=== PATIENT | male | born 1970 | race Caucasian/White ===

== ENCOUNTER 2019-09-02 06:42 | Emergency (ER) | payer BC, SELFPAY ==
[2019-09-02] MEDS ORDERED: LEVALBUTEROL 1.25 MG/3 ML NEB ONE (07:05)
--- NOTE | 2019-09-02 08:12 | ER ---
Nurse's Notes [facility] Name: Wyatt Barth Age: 48 yrs Sex: Male : 1970 Arrival Date: 09/02/2019 Time: 06:45 Bed 6 Private MD: Diagnosis: Acute bronchitis Presentation: 09/02 06:58 Presenting complaint: Patient states: he has had a cough x 2 weeks has used OTC bb medications but they are not helping, last night he had a temp of 100.6 and now he is having pain with inspirations and gets fatigued easier. Transition of care: patient was not received from another setting of care. Onset of symptoms was August 14, 2019. Risk Assessment: Do you want to hurt yourself or someone else? Patient reports no desire to harm self or others. Initial Sepsis Screen: Does the patient meet any 2 criteria? No. Patient's initial sepsis screen is negative. Does the patient have a suspected source of infection? No. Patient's initial sepsis screen is negative. Care prior to arrival: None. 06:58 Method Of Arrival: Ambulatory bb 06:58 Acuity: SELVIN 3 bb Historical: - Allergies: 07:01 PENICILLINS; bb - Home Meds: 07:01 None [Active]; bb - PMHx: 07:01 GERD; bb - PSHx: 07:01 Cholecystectomy; Tonsillectomy; abdominal surgery as a child; neck surgery; bb - Immunization history:: Adult Immunizations up to date, Flu vaccine is not up to date. - Social history:: Smoking status: Patient/guardian denies using tobacco, Patient uses alcohol, occasionally. Patient/guardian denies using street drugs. - Ebola Screening: : No symptoms or risks identified at this time. Screenin:10 Abuse screen: Denies threats or abuse. Denies injuries from another. Nutritional sg screening: No deficits noted. Tuberculosis screening: No symptoms or risk factors identified. Never had TB. Fall Risk None identified. Assessment: 07:10 General: Appears in no apparent distress. well groomed, well developed, well nourished, sg Behavior is calm, cooperative, appropriate for age, quiet. Pain: Denies pain. Neuro: Level of Consciousness is awake, alert, obeys commands, Oriented to person, place, time, Speech is normal, Facial symmetry appears normal. Cardiovascular: Heart tones S1 S2 present Capillary refill is brisk in bilateral fingers Patient's skin is warm and dry. Respiratory: Airway is patent Respiratory effort is even, unlabored, Respiratory pattern is regular, symmetrical, Breath sounds are coarse. Respiratory: Reports cough that is non-productive, dry, persistent. GI: Abdomen is round non-distended. : No signs and/or symptoms were reported regarding the genitourinary system. EENT: No signs and/or symptoms were reported regarding the EENT system. Derm: Skin is pink, warm \T\ dry. Musculoskeletal: Circulation, motion, and sensation intact. Range of motion: intact in all extremities. 07:18 Reassessment: Patient appears in no apparent distress at this time. Patient and/or sg family updated on plan of care and expected duration. Pain level reassessed. Vital Signs: 07:01 BP 145 / 99; Pulse 96; Resp 16 S; Temp 98.4(O); Pulse Ox 94% on R/A; Weight 91.63 kg bb (R); Height 6 ft. 1 in. (185.42 cm) (R); Pain 0/10; 08:00 BP 136 / 82; Pulse 87; Resp 17; Pulse Ox 98% on R/A; Pain 0/10; sg 07:01 Body Mass Index 26.65 (91.63 kg, 185.42 cm) ED Course: 06:45 Patient arrived in ED. ag3 06:50 Mario Castorena PA is PHCP. jmm 06:50 Arden Lew MD is Attending Physician. [facility] 07:00 Triage completed. bb 07:01 Arm band placed on Patient placed in an exam room, on a stretcher, on pulse oximetry. bb 07:10 Patient has correct armband on for positive identification. Bed in low position. Call sg light in reach. Side rails up X2. Pulse ox on. NIBP on. Warm blanket given. Head of bed elevated. 07:18 Ghassan Huerta, AAKASH is Primary Nurse. sg 07:40 Chest Pa And Lat (2 Views) XRAY In Process Unspecified. EDMS 08:15 No provider procedures requiring assistance completed. Patient did not have IV access sg during this emergency room visit. Administered Medications: 07:11 Drug: Xopenex (3) 1.25 mg Route: Inhalation; sg 07:25 Follow up: Response: No adverse reaction sg Outcome: 08:12 Discharge ordered by MD. lama 08:15 Discharged to home ambulatory. sg 08:15 Condition: good 08:15 Discharge instructions given to patient, Instructed on discharge instructions, follow up and referral plans. medication usage, safety practices, Demonstrated understanding of instructions, follow-up care, medications, Prescriptions given X 3. 08:18 Patient left the ED. sg Signatures: Dispatcher [employer] Ghassan Yu RN RN sg Mario Castorena PA PA jmm Ballard, Brenda, RN RN bb Toya Reyna3 Corrections: (The following items were deleted from the chart) 08:21 08:00 BP 136 / 82; Pulse 17bpm; Resp 17bpm; Pulse Ox 98% RA; Pain 0/10; sg sg
--- NOTE | 2019-09-02 08:12 | EDPHYS ---
Physician Documentation [facility] Name: Wyatt Barth Age: 48 yrs Sex: Male : 1970 Arrival Date: 09/02/2019 Time: 06:45 Bed 6 Private MD: ED Physician Arden Lew HPI: 09/02 07:05 This 48 yrs old Male presents to ER via Ambulatory with complaints of Cough. [facility] 07:05 The patient or guardian reports cough. Onset: The symptoms/episode began/occurred jmm gradually, 2 week(s) ago. Modifying factors: The symptoms are alleviated by nothing, the symptoms are aggravated by nothing. Associated signs and symptoms: Pertinent positives: fever, Pertinent negatives: sore throat. This is a 48 year old male with a history of GERD that presents to the ED with complaints of productive cough, wheezing beginning 2 weeks ago. Patient states developing a fever with tmax of 100.6 last night. Denies sore throat. . Historical: - Allergies: 07:01 PENICILLINS; bb - Home Meds: 07:01 None [Active]; bb - PMHx: 07:01 GERD; bb - PSHx: 07:01 Cholecystectomy; Tonsillectomy; abdominal surgery as a child; neck surgery; bb - Immunization history:: Adult Immunizations up to date, Flu vaccine is not up to date. - Social history:: Smoking status: Patient/guardian denies using tobacco, Patient uses alcohol, occasionally. Patient/guardian denies using street drugs. - Ebola Screening: : No symptoms or risks identified at this time. ROS: 07:05 Cardiovascular: Negative for chest pain, palpitations, and edema. jmm 07:05 Constitutional: Positive for body aches, fever. 07:05 ENT: Negative for sore throat. 07:05 Respiratory: Positive for cough, wheezing. 07:05 All other systems are negative. Exam: 07:05 Constitutional: This is a well developed, well nourished patient who is awake, alert, jmm and in no acute distress. Head/Face: atraumatic. Eyes: EOMI, no conjunctival erythema appreciated ENT: Moist Mucus Membranes Neck: Trachea midline, Supple Chest/axilla: Normal chest wall appearance and motion. 07:05 Cardiovascular: Rate: normal, Rhythm: regular, Pulses: no pulse deficits are appreciated. 07:05 Respiratory: the patient does not display signs of respiratory distress, Respirations: normal, Breath sounds: wheezing: that is mild, is heard in the right posterior upper lobe and right posterior middle lobe. 07:05 Abdomen/GI: Inspection: abdomen appears normal, Bowel sounds: normal, Palpation: abdomen is soft and non-tender, in all quadrants. 07:05 Musculoskeletal/extremity: ROM: intact in all extremities. 07:05 Skin: Appearance: Color: normal in color. 07:05 Neuro: Orientation: is normal, Mentation: is normal, Memory: is normal. 07:05 Psych: Behavior/mood is pleasant, cooperative. Vital Signs: 07:01 BP 145 / 99; Pulse 96; Resp 16 S; Temp 98.4(O); Pulse Ox 94% on R/A; Weight 91.63 kg bb (R); Height 6 ft. 1 in. (185.42 cm) (R); Pain 0/10; 08:00 BP 136 / 82; Pulse 87; Resp 17; Pulse Ox 98% on R/A; Pain 0/10; sg 07:01 Body Mass Index 26.65 (91.63 kg, 185.42 cm) bb MDM: 06:55 Patient medically screened. tavon 08:10 Data reviewed: vital signs, nurses notes. Counseling: I had a detailed discussion with daina the patient and/or guardian regarding: the historical points, exam findings, and any diagnostic results supporting the discharge/admit diagnosis, radiology results, the need for outpatient follow up, to return to the emergency department if symptoms worsen or persist or if there are any questions or concerns that arise at home. ED course: Patient is alert and non toxic in appearance in the ED. Decreased wheezing on reexamination. Patient is advised to follow up with PCP and otherwise given strict return precautions. . 09/02 07:01 Order name: Chest Pa And Lat (2 Views) XRAY daina Administered Medications: 07:11 Drug: Xopenex (3) 1.25 mg Route: Inhalation; sg 07:25 Follow up: Response: No adverse reaction sg Disposition: 08:59 Co-signature as Attending Physician, Arden Lew MD I agree with the assessment and tavon plan of care. Disposition: 09/02/19 08:12 Discharged to Home. Impression: Acute bronchitis. - Condition is Stable. - Discharge Instructions: Acute Bronchitis, Adult. - Prescriptions for Prednisone 20 mg Oral Tablet - take 3 tablet by ORAL route once daily for 5 days; 15 tablet. Zithromax Z- Jac 250 mg Oral Tablet - take 1 tablet by ORAL route as directed for 5 days Day 1 - take two (2) tablets one time. Day 2, 3, 4 , 5 take one (1) tablet once daily.; 6 tablet. Albuterol Sulfate 90 mcg/actuation - inhale 1-2 puff by INHALATION route every 4-6 hours; 1 Inhaler. - Medication Reconciliation Form, Thank You Letter, Antibiotic Education, Prescription Opioid Use, Work release form form. - Follow up: Private Physician; When: 2 - 3 days; Reason: Recheck today's complaints, Continuance of care, Re-evaluation by your physician. Signatures: Dispatcher [employer] EDGhassan Venegas, RN RN Arden Toledo MD MD cha Mickail, Joel, PA PA jmm Ballard, Brenda, RN RN bb Corrections: (The following items were deleted from the chart) 08:18 08:12 09/02/2019 08:12 Discharged to Home. Impression: Acute bronchitis. Condition is sg Stable. Forms are Medication Reconciliation Form, Thank You Letter, Antibiotic Education, Prescription Opioid Use. Follow up: Private Physician; When: 2 - 3 days; Reason: Recheck today's complaints, Continuance of care, Re-evaluation by your physician. daina
[2019-09-02 08:31] VITALS: BP 145/99; TEMP 98.4; O2SAT 94
--- NOTE | 2019-09-02 09:46 | RAD REPORT ---
EXAM DESCRIPTION: RAD - Chest Pa And Lat (2 Views) - 09/02/2019 7:42 am CLINICAL HISTORY: fever, cough Chest pain. COMPARISON: Chest Single View dated 07/11/2016; CHEST SINGLE VIEW dated 09/26/2013 FINDINGS: Ill-defined opacities are present in the left lung base suspicious for developing pneumoni a. The lungs are otherwise clear. The heart is normal in size. No displaced fractures. IMPRESSION: Developing left lung base pneumonia.
== END 2019-09-02 08:18 | disposition home or self-care (01) ==
LOC: ER 06:42
DX: J20.9 Acute bronchitis, unspecified (principal); K21.9 Gastro-esophageal reflux disease without esophagitis; Z88.0 Allergy status to penicillin
CPT/HCPCS: 71046; 99284

== ENCOUNTER 2020-05-10 16:05 | Emergency (ER) | payer SELFPAY ==
[2020-05-10 17:05] LABS: Basophils % 0.8 % (0-1.3); Hematocrit 41.4 % (39.6-49.0); Lymphocytes % 19.4 % (15.3-44.8); MPV 7.7 fL (7.6-11.3); Protime INR 0.93; RBC Red Blood Cell Count 4.48 M/uL (4.33-5.43)
[2020-05-10 17:31] LABS: ALT/SGPT 146 U/L (12-78); AST/SGOT 127 U/L (15-37); Albumin 3.9 g/dL (3.4-5.0); Alkaline Phosphatase 49 U/L (45-117); BUN Blood Urea Nitrogen 14 mg/dL (7-18); Bicarbonate 26 mmol/L (21-32); Bilirubin Direct 0.2 mg/dL (0-0.2); Bilirubin Total 0.5 mg/dL (0.2-1.0); Glucose Level 97 mg/dL (74-106); NT PRO-BNP 8 pg/mL (<125); Potassium 3.6 mmol/L (3.5-5.1); Protein, Total 7.6 g/dL (6.4-8.2); Sodium Level 140 mmol/L (136-145); Troponin (Emerg Dept Use Only) < 0.02 ng/mL (0.0-0.045)
[2020-05-10] MEDS ORDERED: NA CHLORIDE 0.9% 1,000 ML ONE (17:38)
--- NOTE | 2020-05-10 17:54 | RAD REPORT ---
EXAM DESCRIPTION: RAD - Chest Single View - 05/10/2020 5:44 pm CLINICAL HISTORY: PALPITATIONS COMPARISON: Two view chest August 2019 TECHNIQUE: AP portable chest image was obtained 05/10/2020 5:44 pm . FINDINGS: Lung volumes are low. This elevates the right hemidiaphragm relative to the left. No acute lung parenchymal process seen. No failure or volume overload identifiable. Heart and vasculature are normal. No measurable pleural effusion and no pneumothorax. No acute bony abnormality seen. No acute aortic findings suspected. IMPRESSION: No acute cardiopulmonary process. No suspicious change from comparison.
[2020-05-10] MEDS ORDERED: ONDANSETRON 4 MG/2 ML VIAL ONE (18:34)
--- NOTE | 2020-05-10 18:40 | ER ---
Nurse's Notes [facility] Name: Wyatt Barth Age: 49 yrs Sex: Male : 1970 Arrival Date: 05/10/2020 Time: 16:09 Bed 3 Private MD: Diagnosis: Elevated blood-pressure reading, without diagnosis of hypertension;Tachycardia, unspecified Presentation: 05/10 16:17 Chief complaint: Patient states: High BP. high HR, and lightheaded for 1 day. HR ll1 130-150is today. Coronavirus screen: Client denies travel out of the [place] in the last 14 days. cough unrelated to allergies, Client presents with at least one sign or symptom that may indicate coronavirus-19. Standard/surgical mask placed on the client. Ebola Screen: Patient denies travel to an Ebola-affected area in the 21 days before illness onset. Initial Sepsis Screen: Does the patient meet any 2 criteria? HR > 90 bpm. Risk Assessment: Do you want to hurt yourself or someone else? Patient reports no desire to harm self or others. Onset of symptoms was May 10, 2020. 16:17 Method Of Arrival: Wheelchair ll1 16:17 Acuity: SELVIN 2 ll1 16:30 Initial Sepsis Screen: Does the patient have a suspected source of infection?. iw Triage Assessment: 18:00 General: Appears in no apparent distress. Behavior is calm. iw Historical: - Allergies: 16:16 PENICILLINS; ll1 - PMHx: 16:16 GERD; ll1 - PSHx: 16:16 Cholecystectomy; Tonsillectomy; abdominal surgery as a child; neck surgery; ll1 - Immunization history:: Flu vaccine is not up to date. - Social history:: Smoking status: Patient denies any tobacco usage or history of. Patient uses alcohol, on a daily basis. only on a social basis. Patient/guardian denies using street drugs. Screenin:57 Abuse screen: Denies threats or abuse. Denies injuries from another. Nutritional iw screening: No deficits noted. Tuberculosis screening: No symptoms or risk factors identified. Fall Risk None identified. Assessment: 17:00 General: Appears in no apparent distress. Behavior is calm, cooperative. Pain: Denies iw pain. Neuro: Level of Consciousness is awake, alert, obeys commands, Oriented to person, place, time, situation, Moves all extremities. Full function. Cardiovascular: Patient's skin is warm and dry. Respiratory: Airway is patent Respiratory effort is even, unlabored. GI: No signs and/or symptoms were reported involving the gastrointestinal system. Derm: Skin is intact, is healthy with good turgor. Musculoskeletal: Range of motion: intact in all extremities. 17:57 Reassessment: Patient appears in no apparent distress at this time. Patient and/or iw family updated on plan of care and expected duration. Pain level reassessed. Patient is alert, oriented x 3, equal unlabored respirations, skin warm/dry/pink. 18:30 Reassessment: Patient appears in no apparent distress at this time. Patient and/or vc family updated on plan of care and expected duration. Pain level reassessed. Patient is alert, oriented x 3, equal unlabored respirations, skin warm/dry/pink. Patient states feeling better. Patient states symptoms have improved. 19:09 Reassessment: Patient appears in no apparent distress at this time. Patient is alert, rr5 oriented x 3, equal unlabored respirations, skin warm/dry/pink. discharge instruction given and explained without complaints made. Vital Signs: 16:17 BP 145 / 127; Pulse 126; Resp 18; Temp 98.8; Pulse Ox 95% ; Pain 0/10; ll1 17:19 BP 138 / 104; Pulse 110; Resp 18 S; Pulse Ox 98% on R/A; iw 17:57 BP 156 / 93; Pulse 112; Resp 16; Pulse Ox 97% on R/A; iw 19:08 BP 152 / 102; Pulse 99; Resp 17; Pulse Ox 99% ; rr5 ED Course: 16:09 Patient arrived in ED. mr 16:16 Arm band placed on Patient placed in an exam room, on a stretcher. ll1 16:18 Triage completed. ll1 16:21 Melanie Londono FNP-C is [facility]. kb 16:21 Arden Lew MD is Attending Physician. kb 16:30 Inserted saline lock: 20 gauge in right antecubital area, using aseptic technique. vc Blood collected. 16:49 Jessica Benítez, RN is Primary Nurse. vc 17:44 XRAY Chest (1 view) In Process Unspecified. EDMS 19:00 Patient has correct armband on for positive identification. Bed in low position. Call rr5 light in reach. 19:00 school lunch monitor on. Pulse ox on. NIBP on. rr5 19:11 No provider procedures requiring assistance completed. IV discontinued, intact, rr5 bleeding controlled, No redness/swelling at site. Pressure dressing applied. Administered Medications: 17:34 Drug: NS 0.9% 1000 ml Route: IV; Rate: 1000 ml; Site: right forearm; iw 19:12 Follow up: Response: No adverse reaction; IV Status: Completed infusion; IV Intake: rr5 1000ml 18:28 Drug: Zofran (Ondansetron) 4 mg Route: IVP; Site: right antecubital; vc 19:10 Follow up: Response: No adverse reaction rr5 Intake: 19:12 IV: 1000ml; Total: 1000ml. rr5 Outcome: 18:40 Discharge ordered by . kb 19:11 Discharged to home ambulatory. rr5 19:11 Condition: stable 19:11 Discharge instructions given to patient, Instructed on discharge instructions, follow up and referral plans. medication usage, Demonstrated understanding of instructions, follow-up care, medications, Prescriptions given X 1. 19:12 Patient left the ED. rr5 Signatures: Dispatcher [employer] EDMS Melanie Londono, TICK ERADICATOR-C TICK ERADICATOR-Ckb Manda Evans Irene, RN Rodolfo Cm RN RN rr5 Jessica Benítez RN RN vc Lewis, Lynsay, RN RN ll1
--- NOTE | 2020-05-10 18:40 | EDPHYS ---
Physician Documentation [facility] Name: Wyatt Barth Age: 49 yrs Sex: Male : 1970 Arrival Date: 05/10/2020 Time: 16:09 Bed 3 Private MD: ED Physician Arden Lew HPI: 05/10 18:18 This 49 yrs old Male presents to ER via Wheelchair with complaints of High kb Blood Pressure, Dizziness. 18:18 The patient has elevated blood pressure and discovered this at a friend's home. Onset: kb The symptoms/episode began/occurred today. Associated signs and symptoms: Pertinent positives: lightheadedness, Pertinent negatives: chest pain, dizziness, dyspnea, headache, nausea, visual changes, vomiting, weakness. Severity of symptoms: At its worst the blood pressure was 180 mm Hg, in the emergency department the blood pressure is improved, 156 mm Hg. The patient has not experienced similar symptoms in the past. The patient has not recently seen a physician. Pt reports his heart rate goes up sometimes, usually after eating. States it normally comes down, but today it has lasted for a few hours. States he checked his BP and it was high as well so he came in. Reports slight lightheadedness. Denies chest pain or shortness of breath. Historical: - Allergies: 16:16 PENICILLINS; ll1 - PMHx: 16:16 GERD; ll1 - PSHx: 16:16 Cholecystectomy; Tonsillectomy; abdominal surgery as a child; neck surgery; ll1 - Immunization history:: Flu vaccine is not up to date. - Social history:: Smoking status: Patient denies any tobacco usage or history of. Patient uses alcohol, on a daily basis. only on a social basis. Patient/guardian denies using street drugs. ROS: 18:21 Constitutional: Negative for fever, chills, and weight loss, Eyes: Negative for injury, kb pain, redness, and discharge, Respiratory: Negative for shortness of breath, cough, wheezing, and pleuritic chest pain, Abdomen/GI: Negative for abdominal pain, nausea, vomiting, diarrhea, and constipation, Back: Negative for injury and pain, MS/Extremity: Negative for injury and deformity, Skin: Negative for injury, rash, and discoloration. 18:21 Cardiovascular: Positive for elevated heart rate and BP. 18:21 Neuro: Positive for lightheadedness. Exam: 18:21 Constitutional: This is a well developed, well nourished patient who is awake, alert, kb and in no acute distress. Head/Face: Normocephalic, atraumatic. Chest/axilla: Normal chest wall appearance and motion. Nontender with no deformity. No lesions are appreciated. Cardiovascular: Tachycardia, normal rhythm with a normal S1 and S2. No gallops, murmurs, or rubs. Normal PMI, no JVD. No pulse deficits. Respiratory: Lungs have equal breath sounds bilaterally, clear to auscultation and percussion. No rales, rhonchi or wheezes noted. No increased work of breathing, no retractions or nasal flaring. Abdomen/GI: Soft, non-tender, with normal bowel sounds. No distension or tympany. No guarding or rebound. No evidence of tenderness throughout. Skin: Warm, dry with normal turgor. Normal color with no rashes, no lesions, and no evidence of cellulitis. MS/ Extremity: Pulses equal, no cyanosis. Neurovascular intact. Full, normal range of motion. Neuro: Awake and alert, GCS 15, oriented to person, place, time, and situation. Cranial nerves II-XII grossly intact. Motor strength 5/5 in all extremities. Sensory grossly intact. Cerebellar exam normal. Normal gait. 18:21 ECG was reviewed by the Attending Physician. Vital Signs: 16:17 BP 145 / 127; Pulse 126; Resp 18; Temp 98.8; Pulse Ox 95% ; Pain 0/10; ll1 17:19 BP 138 / 104; Pulse 110; Resp 18 S; Pulse Ox 98% on R/A; iw 17:57 BP 156 / 93; Pulse 112; Resp 16; Pulse Ox 97% on R/A; iw 19:08 BP 152 / 102; Pulse 99; Resp 17; Pulse Ox 99% ; rr5 MDM: 16:22 Patient medically screened. kb 18:23 Data reviewed: vital signs, nurses notes. Data interpreted: Pulse oximetry: on room air kb is 97 %. Interpretation: normal. 18:28 Counseling: I had a detailed discussion with the patient and/or guardian regarding: the kb historical points, exam findings, and any diagnostic results supporting the discharge/admit diagnosis, lab results, radiology results, the need for outpatient follow up, a family practitioner, to return to the emergency department if symptoms worsen or persist or if there are any questions or concerns that arise at home. ED course: Educated to keep BP log and follow up with PCP for management. 05/10 16:26 Order name: Basic Metabolic Panel; Complete Time: 17:32 kb 05/10 16:26 Order name: CBC with Diff; Complete Time: 17:10 kb 05/10 16:26 Order name: LFT's; Complete Time: 17:32 kb 05/10 16:26 Order name: Magnesium; Complete Time: 17:32 kb 05/10 16:26 Order name: NT PRO-BNP; Complete Time: 17:32 kb 05/10 16:26 Order name: PT-INR; Complete Time: 17:10 kb 05/10 16:26 Order name: Troponin (emerg Dept Use Only); Complete Time: 17:32 kb 05/10 16:26 Order name: XRAY Chest (1 view); Complete Time: 17:55 kb 05/10 16:26 Order name: EKG; Complete Time: 16:27 kb 05/10 16:26 Order name: Cardiac monitoring; Complete Time: 17:23 kb 05/10 16:26 Order name: EKG - Nurse/Tech; Complete Time: 17:23 kb 05/10 18:02 Order name: D-Dimer; Complete Time: 18:28 kb 05/10 16:26 Order name: IV Saline Lock; Complete Time: 16:49 kb 05/10 16:26 Order name: Labs collected and sent; Complete Time: 16:49 kb 05/10 16:26 Order name: O2 Per Protocol; Complete Time: 16:50 kb 05/10 16:26 Order name: O2 Sat Monitoring; Complete Time: 16:50 kb EC:21 Rate is 114 beats/min. Rhythm is regular. QRS Carr is Normal. VA interval is normal at kb 162 msec. QRS interval is normal at 80 msec. QT interval is normal at 312 msec. Administered Medications: 17:34 Drug: NS 0.9% 1000 ml Route: IV; Rate: 1000 ml; Site: right forearm; iw 19:12 Follow up: Response: No adverse reaction; IV Status: Completed infusion; IV Intake: rr5 1000ml 18:28 Drug: Zofran (Ondansetron) 4 mg Route: IVP; Site: right antecubital; vc 19:10 Follow up: Response: No adverse reaction rr5 Disposition: 05/11 08:03 Co-signature as Attending Physician, Arden Lew MD I agree with the assessment and tvaon plan of care. Disposition: 05/10/20 18:40 Discharged to Home. Impression: Elevated blood-pressure reading, without diagnosis of hypertension, Tachycardia, unspecified. - Condition is Stable. - Discharge Instructions: Hypertension, [id number], How to Take Your Blood Pressure, [id number], DASH Eating Plan. - Prescriptions for Zofran 4 mg Oral Tablet - take 1 tablet by ORAL route every 12 hours As needed; 20 tablet. - Medication Reconciliation Form, Thank You Letter, Antibiotic Education, Prescription Opioid Use form. - Follow up: Emergency Department; When: As needed; Reason: Worsening of condition. Follow up: Private Physician; When: 2 - 3 days; Reason: Recheck today's complaints, Continuance of care, Re-evaluation by your physician. Signatures: Dispatcher [employer] Melanie Nicholson, VIPUL-Keiko MATTHEW-Arden Bonner MD MD cha Williams, Irene, RN RN iw Rodolfo Hi RN RN rr5 Jessica Benítez RN RN vc Lewis, Lynsay RN RN ll1 Corrections: (The following items were deleted from the chart) 05/10 19:12 18:40 05/10/2020 18:40 Discharged to Home. Impression: Elevated blood-pressure reading, rr5 without diagnosis of hypertension; Tachycardia, unspecified. Condition is Stable. Discharge Instructions: Hypertension, [id number], How to Take Your Blood Pressure, [id number], DASH Eating Plan. Prescriptions for Zofran 4 mg Oral Tablet - take 1 tablet by ORAL route every 12 hours As needed; 20 tablet. and Forms are Medication Reconciliation Form, Thank You Letter, Antibiotic Education, Prescription Opioid Use. Follow up: Emergency Department; When: As needed; Reason: Worsening of condition. Follow up: Private Physician; When: 2 - 3 days; Reason: Recheck today's complaints, Continuance of care, Re-evaluation by your physician. kb
[2020-05-10 19:17] VITALS: TEMP 98.8
[2020-05-10 19:21] VITALS: BP 152/102; O2SAT 99
== END 2020-05-10 19:12 | disposition home or self-care (01) ==
LOC: ER 16:05
DX: R03.0 Elevated blood-pressure reading, without diagnosis of hypertension (principal); R00.0 Tachycardia, unspecified
CPT/HCPCS: 36415; 71045; 80048; 80076; 83735; 83880; 84484; 85025; 85379; 85610; 93005; 96361; 96374; 99284; J2405; J7030

== ENCOUNTER 2022-01-18 10:04 | Emergency (ER) | payer SELFPAY ==
--- OUTSIDE RECORDS SUMMARY | 2022-01-18 10:10 | XMS REPORT | Continuity of Care Document ---
:1970 Author Organization [facility] t Address [address] [place] [address] Care Team Providers Name Role Phone Enrique BROWN Primary Care Physician ENRIQUE Attending Clinician Unavailable Doctor Unassigned, Name Attending Clinician Unavailable Aleksandr Parrish Attending Clinician Enrique BROWN Attending Clinician Aleksandr HUMMEL Attending Clinician Unavailable ERICKA Attending Clinician Unavailable Tiffanie PAC, S Attending Clinician MOE, S Attending Clinician Unavailable Moni MOORE, G Attending Clinician Maximilian Alba DO Attending Clinician Singer PAUL Attending Clinician Ethel BROWN Attending Clinician ETHEL Attending Clinician Unavailable Rupa MOE Admitting Clinician Unavailable Ethel BROWN Admitting Clinician ETHEL Admitting Clinician Unavailable Payers Payer Name Policy Type Policy Number Effective Date Expiration Date [facility] [id number] 2017 PPO 00:00:00 Problems Condition Condition Condition Status Onset Resolution Last Treating Co mments Source Name Details Category Date Date Treatment Clinician Date Essential Essential Disease Active 2019-0 Uni vers hypertensi hypertensi 8- it y of on on 00:00: [place] [address] [facility] Palpitatio Palpitatio Disease Active 2020-0 U nivers n n 8- ity of 00:00: [place] [address] [facility] Alcohol Alcohol Disease Active Univers abuse abuse 8-04 ity of 00:00: [place] 00 [facility] Near Near Disease Active Univers syncope syncope 8- ity of 00:00: [place] [address] [facility] Hyperlipid Hyperlipid Disease Active U nivers emia, emia, 8-10 ity [place] unspec[place] hyperlipid hyperlipid Br anch emia type emia type Elevated Elevated Disease Active Unive rs BP BP 8-10 ity of 00:00: [place] [facility] Allergies, Adverse Reactions, Alerts Allergy Allergy Status Severity Reaction(s) Onset Inactive Treating Comm ents Source Name Type Date Date Clinician PENICILL DRUG Active Unknown-Cmnt [facility] IN [facility] 01-02 ity of 00:00: [place] [facility] NO KNOWN Drug Active Univers ALLERGIE Class ity of S [facility] Branch Social History Social Habit Start Date Stop Date Quantity Comments Source Exposure to Not sure [facility] SARS-CoV-2 [place] [facility] (event) Branch Alcohol intake 2021-12-12 2021-12-12 Current drinker Unive rsity of 00:00:00 00:00:00 of alcohol [place] [facility] (finding) Branch History SDOH 2020-05-14 2020-05-14 5 University o f Alcohol Frequency 00:00:00 00:00:00 [place] [facility] History SDOH 2020-05-14 2020-05-14 99 University o f Alcohol Std 00:00:00 00:00:00 [place] [facility] Drinks Branch History SDPR 2020-05-14 2020-05-14 99 University o f Alcohol Binge 00:00:00 00:00:00 [place] [facility] Alcohol Comment 2020-05-14 2020-05-14 1/2 gallon every Uni versity of 00:00:00 00:00:00 2-3 days of rum [place] [facility] Tobacco use and 2020-05-13 2020-05-13 Never used Universit y of exposure 00:00:00 [facility] Sex [birth year] At [birth year] Universit y of 00:00:00 00:00:00 [place] [facility] Smoking Status Start Date Stop Date Source Never smoker [facility] Medications Ordered Filled Start Stop Current Ordering Indication Dosage Frequency Signature Comments Components Source Medication Medication Date Date Medication? Clinician (SIG) Name Name sildenafiL 2021-0 Yes [id number] TAKE ONE Univers 50 mg 4-04 TABLET BY ity of tablet 00:00: MOUTH [place] 00 EVERY 24 Medical HOURS Branch NEEDED FOR ERECTILE DYSFUNCTIO N (ONE HOUR BEFORE ACTIVITY) BUSPIRONE 5 2021-0 Yes [id number] TAKE ONE Univers mg tablet 3-31 TABLET BY ity o f 00:00: MOUTH [place] 00 TWICE A Medical DAY Branch NEEDED BUSPIRONE 5 2021-0 Yes [id number] TAKE ONE Univers mg tablet 3-31 TABLET BY ity o f 00:00: MOUTH [place] 00 TWICE A Medical DAY Branch NEEDED sildenafiL 2021-0 Yes [id number] TAKE ONE Univers 50 mg 3-24 TABLET BY ity of tablet 00:00: MOUTH [place] 00 EVERY 24 Medical HOURS Branch NEEDED FOR ERECTILE DYSFUNCTIO N (ONE HOUR BEFORE ACTIVITY) sildenafiL 2021-0 Yes [id number] TAKE ONE Univers 50 mg 3-24 TABLET BY ity of tablet 00:00: MOUTH [place] 00 EVERY 24 Medical HOURS Branch NEEDED FOR ERECTILE DYSFUNCTIO N (ONE HOUR BEFORE ACTIVITY) sildenafiL 2021-0 2021- No [id number] TAKE ONE Univers 50 mg 3-24 04-02 TABLET BY ity of tablet 00:00: 00:00 MOUTH [place] 00 :00 EVERY 24 Medical HOURS Branch NEEDED FOR ERECTILE DYSFUNCTIO N (ONE HOUR BEFORE ACTIVITY) carvediloL 2021-0 Yes [id number] 12.5mg Take 1 Univers 12.5 mg 3-21 tablet by ity of tablet 00:00: mouth 2 00 (two) Medical times Branch daily with meals. carvediloL 2021-0 Yes [id number] 12.5mg Take 1 Univers 12.5 mg 3-21 tablet by ity of tablet 00:00: mouth 2 [place] 00 (two) Medical times Branch daily with meals. carvediloL 2021-0 Yes [id number] 12.5mg Take 1 Univers 12.5 mg 3-21 tablet by ity of tablet 00:00: mouth 2 [place] 00 (two) Medical times Branch daily with meals. carvediloL 2021-0 Yes [id number] 12.5mg Take 1 Univers 12.5 mg 3-21 tablet by ity of tablet 00:00: mouth 2 00 (two) Medical times Branch daily with meals. carvediloL Yes [id number] 12.5mg Take 1 Univers 12.5 mg 3-21 tablet by ity of tablet 00:00: mouth 2 00 (two) Medical times Branch daily with meals. sildenafiL Yes [id number] TAKE 1 [facility] 50 mg 3-16 TABLET BY ity of tablet 00:00: MOUTH [place] 00 EVERY 24 Medical HOURS Branch NEEDED FOR ERECTILE DYSFUNCTIO N ( ONE HOUR BEFORE SEXUAL ACTIVITY) sildenafiL Yes [id number] TAKE 1 Univers 50 mg 3-16 TABLET BY ity of tablet 00:00: MOUTH 00 EVERY 24 Medical HOURS Branch NEEDED FOR ERECTILE DYSFUNCTIO N ( ONE HOUR BEFORE SEXUAL ACTIVITY) sildenafiL Yes [id number] TAKE 1 Univers 50 mg 3-16 TABLET BY ity of tablet 00:00: MOUTH 00 EVERY 24 Medical HOURS Branch NEEDED FOR ERECTILE DYSFUNCTIO N ( ONE HOUR BEFORE SEXUAL ACTIVITY) sildenafiL 2021- No [id number] TAKE 1 Univers 50 mg 3-16 03-24 TABLET BY ity of tablet 00:00: 00:00 MOUTH [place] 00 :00 EVERY 24 Medical HOURS Branch NEEDED FOR ERECTILE DYSFUNCTIO N ( ONE HOUR BEFORE SEXUAL ACTIVITY) sildenafiL Yes [id number] TAKE 1 Univers 50 mg 3-07 TABLET BY ity of tablet 00:00: MOUTH [place] 00 EVERY 24 Medical HOURS Branch NEEDED FOR ERECTILE DYSFUNCTIO N ( ONE HOUR BEFORE SEXUAL ACTIVITY) sildenafiL Yes [id number] TAKE 1 Univers 50 mg 3-07 TABLET BY ity of tablet 00:00: MOUTH [place] 00 EVERY 24 Medical HOURS Branch NEEDED FOR ERECTILE DYSFUNCTIO N ( ONE HOUR BEFORE SEXUAL ACTIVITY) sildenafiL 2021- No [id number] TAKE 1 Univers 50 mg 3-07 03-16 TABLET BY ity of tablet 00:00: 00:00 MOUTH [place] 00 :00 EVERY 24 Medical HOURS Branch NEEDED FOR ERECTILE DYSFUNCTIO N ( ONE HOUR BEFORE SEXUAL ACTIVITY) lisinopriL Yes [id number] 20mg Take 1 U nivers 20 mg 3-04 tablet by ity of tablet 00:00: mouth [place] 00 daily. Medical Branch busPIRone 5 2021-0 Yes [id number] 5mg Take 1 Univers mg tablet 3-04 tablet by ity o f 00:00: mouth (two) Medical times Branch daily as needed (anxiety). lisinopriL 2021-0 Yes [id number] 20mg Take 1 U nivers 20 mg 3-04 tablet by ity of tablet 00:00: mouth [place] 00 daily. Medical Branch busPIRone 5 2021-0 Yes [id number] 5mg Take 1 Univers mg tablet 3-04 tablet by ity o f 00:00: mouth (two) Medical times Branch daily as needed (anxiety). lisinopriL 2021-0 Yes [id number] 20mg Take 1 U nivers 20 mg 3-04 tablet by ity of tablet 00:00: mouth [place] 00 daily. Medical Branch busPIRone 5 2021-0 Yes [id number] 5mg Take 1 Univers mg tablet 3-04 tablet by ity o f 00:00: mouth (two) Medical times Branch daily as needed (anxiety). lisinopriL 2021-0 Yes [id number] 20mg Take 1 U nivers 20 mg 3-04 tablet by ity of tablet 00:00: mouth 00 daily. Medical Branch busPIRone 5 2021-0 Yes [id number] 5mg Take 1 Univers mg tablet 3-04 tablet by ity o f 00:00: mouth (two) Medical times Branch daily as needed (anxiety). lisinopriL 2021-0 Yes [id number] 20mg Take 1 U nivers 20 mg 3-04 tablet by ity of tablet 00:00: mouth [place] 00 daily. Medical Branch busPIRone 5 2021-0 Yes [id number] 5mg Take 1 Univers mg tablet 3-04 tablet by ity o f 00:00: mouth (two) Medical times Branch daily as needed (anxiety). lisinopriL 2-0 Yes [id number] 20mg Take 1 U nivers 20 mg 3-04 tablet by ity of tablet 00:00: mouth [place] 00 daily. Medical Branch busPIRone 5 2021-0 Yes [id number] 5mg Take 1 Univers mg tablet 3-04 tablet by ity o f 00:00: mouth 2 [place] 00 (two) Medical times Branch daily as needed (anxiety). lisinopriL Yes [id number] 20mg Take 1 U nivers 20 mg 3-04 tablet by ity of tablet 00:00: mouth [place] 00 daily. Medical Branch busPIRone 5 Yes [id number] 5mg Take 1 Univers mg tablet 3-04 tablet by ity o f 00:00: mouth 2 [place] 00 (two) Medical times Branch daily as needed (anxiety). lisinopriL Yes [id number] 20mg Take 1 U nivers 20 mg 3-04 tablet by ity of tablet 00:00: mouth [place] 00 daily. Medical Branch lisinopriL Yes [id number] 20mg Take 1 U nivers 20 mg 3-04 tablet by ity of tablet 00:00: mouth [place] 00 daily. Medical Branch busPIRone 5 2021- No [id number] 5mg Take 1 Univers mg tablet 3-04 -31 tablet by ity of 00:00: 00:00 mouth 2 [place] 00 :00 (two) Medical times Branch daily as needed (anxiety). sildenafiL Yes [id number] TAKE 1 Univers 50 mg 2-23 TABLET BY ity of tablet 00:00: MOUTH [place] 00 EVERY 24 Medical HOURS Branch NEEDED FOR ERECTILE DYSFUNCTIO N ( ONE HOUR BEFORE SEXUAL ACTIVITY) sildenafiL 2- No [id number] TAKE 1 Univers 50 mg 2-23 03-06 TABLET BY ity of tablet 00:00: 00:00 MOUTH [place] 00 :00 EVERY 24 Medical HOURS Branch NEEDED FOR ERECTILE DYSFUNCTIO N ( ONE HOUR BEFORE SEXUAL ACTIVITY) sildenafiL Yes [id number] TAKE 1 Univers 50 mg 2-14 TABLET BY ity of tablet 00:00: MOUTH [place] 00 EVERY 24 Medical HOURS Branch NEEDED FOR ERECTILE DYSFUNCTIO N ( ONE HOUR BEFORE SEXUAL ACTIVITY) sildenafiL Yes [id number] TAKE 1 Univers 50 mg 2-14 TABLET BY ity of tablet 00:00: MOUTH [place] 00 EVERY 24 Medical HOURS Branch NEEDED FOR ERECTILE DYSFUNCTIO N ( ONE HOUR BEFORE SEXUAL ACTIVITY) sildenafiL Yes [id number] TAKE 1 Univers 50 mg 2-14 TABLET BY ity of tablet 00:00: MOUTH [place] 00 EVERY 24 Medical HOURS Branch NEEDED FOR ERECTILE DYSFUNCTIO N ( ONE HOUR BEFORE SEXUAL ACTIVITY) sildenafiL 0 2021- No [id number] TAKE 1 Univers 50 mg 2-14 - TABLET BY ity of tablet 00:00: 00:00 MOUTH [place] 00 :00 EVERY 24 Medical HOURS Branch NEEDED FOR ERECTILE DYSFUNCTIO N ( ONE HOUR BEFORE SEXUAL ACTIVITY) CARVEDILOL 2021-0 Yes [id number] TAKE ONE Univers 12.5 mg 2-11 TABLET BY ity of tablet 00:00: MOUTH [place] 00 TWICE A Medical DAY WITH A Branch MEAL CARVEDILOL 0 Yes [id number] TAKE ONE Univers 12.5 mg 2-11 TABLET BY ity of tablet 00:00: MOUTH [place] 00 TWICE A Medical DAY WITH A Branch MEAL CARVEDILOL 0 Yes [id number] TAKE ONE Univers 12.5 mg 2-11 TABLET BY ity of tablet 00:00: MOUTH [place] 00 TWICE A Medical DAY WITH A Branch MEAL CARVEDILOL 2021-0 Yes [id number] TAKE ONE Univers 12.5 mg 2-11 TABLET BY ity of tablet 00:00: MOUTH [place] 00 TWICE A Medical DAY WITH A Branch MEAL CARVEDILOL 2021-0 Yes [id number] TAKE ONE Univers 12.5 mg 2-11 TABLET BY ity of tablet 00:00: MOUTH [place] 00 TWICE A Medical DAY WITH A Branch MEAL CARVEDILOL 2021-0 Yes [id number] TAKE ONE Univers 12.5 mg 2-11 TABLET BY ity of tablet 00:00: MOUTH [place] 00 TWICE A Medical DAY WITH A Branch MEAL CARVEDILOL 2021-0 Yes [id number] TAKE ONE Univers 12.5 mg 2-11 TABLET BY ity of tablet 00:00: MOUTH [place] 00 TWICE A Medical DAY WITH A Branch MEAL CARVEDILOL 2021-0 Yes [id number] TAKE ONE Univers 12.5 mg 2-11 TABLET BY ity of tablet 00:00: MOUTH [place] 00 TWICE A Medical DAY WITH A Branch MEAL CARVEDILOL 2021-0 Yes [id number] TAKE ONE Univers 12.5 mg 2-11 TABLET BY ity of tablet 00:00: MOUTH [place] 00 TWICE A Medical DAY WITH A Branch MEAL CARVEDILOL 2021-0 2- No [id number] TAKE ONE Univers 12.5 mg 2-11 -21 TABLET BY ity of tablet 00:00: 00:00 MOUTH [place] 00 :00 TWICE A Medical DAY WITH A Branch MEAL CARVEDILOL 2021- No [id number] TAKE ONE Univers 12.5 mg 2-11 -21 TABLET BY ity of tablet 00:00: 00:00 MOUTH [place] 00 :00 TWICE A Medical DAY WITH A Branch MEAL sildenafiL Yes [id number] TAKE 1 Univers 50 mg 2-01 TABLET BY ity of tablet 00:00: MOUTH [place] 00 EVERY 24 Medical HOURS Branch NEEDED FOR ERECTILE DYSFUNCTIO N ( ONE HOUR BEFORE SEXUAL ACTIVITY) sildenafiL Yes [id number] TAKE 1 Univers 50 mg 2-01 TABLET BY ity of tablet 00:00: MOUTH [place] 00 EVERY 24 Medical HOURS Branch NEEDED FOR ERECTILE DYSFUNCTIO N ( ONE HOUR BEFORE SEXUAL ACTIVITY) sildenafiL Yes [id number] TAKE ONE Univers 50 mg 2-01 TABLET BY ity of tablet 00:00: MOUTH [place] 00 EVERY 24 Medical HOURS FOR Branch ERECTILE DYSFUNCTIO N (ONE HOUR BEFORE SEXUAL ACTIVITY) sildenafiL Yes [id number] TAKE 1 Univers 50 mg 2-01 TABLET BY ity of tablet 00:00: MOUTH [place] 00 EVERY 24 Medical HOURS Branch NEEDED FOR ERECTILE DYSFUNCTIO N ( ONE HOUR BEFORE SEXUAL ACTIVITY) sildenafiL Yes [id number] TAKE ONE Univers 50 mg 2-01 TABLET BY ity of tablet 00:00: MOUTH [place] 00 EVERY 24 Medical HOURS FOR Branch ERECTILE DYSFUNCTIO N (ONE HOUR BEFORE SEXUAL ACTIVITY) sildenafiL Yes [id number] TAKE ONE Univers 50 mg 2-01 TABLET BY ity of tablet 00:00: MOUTH [place] 00 EVERY 24 Medical HOURS FOR Branch ERECTILE DYSFUNCTIO N (ONE HOUR BEFORE SEXUAL ACTIVITY) sildenafiL Yes [id number] TAKE ONE Univers 50 mg 2-01 TABLET BY ity of tablet 00:00: MOUTH [place] 00 EVERY 24 Medical HOURS FOR Branch ERECTILE DYSFUNCTIO N (ONE HOUR BEFORE SEXUAL ACTIVITY) sildenafiL Yes [id number] TAKE ONE Univers 50 mg 2-01 TABLET BY ity of tablet 00:00: MOUTH [place] 00 EVERY 24 Medical HOURS FOR Branch ERECTILE DYSFUNCTIO N (ONE HOUR BEFORE SEXUAL ACTIVITY) sildenafiL Yes [id number] TAKE ONE Univers 50 mg 2-01 TABLET BY ity of tablet 00:00: MOUTH [place] 00 EVERY 24 Medical HOURS FOR Branch ERECTILE DYSFUNCTIO N (ONE HOUR BEFORE SEXUAL ACTIVITY) sildenafiL 2021- No [id number] TAKE 1 Univers 50 mg 2-01 02-12 TABLET BY ity of tablet 00:00: 00:00 MOUTH [place] 00 :00 EVERY 24 Medical HOURS Branch NEEDED FOR ERECTILE DYSFUNCTIO N ( ONE HOUR BEFORE SEXUAL ACTIVITY) sildenafiL Yes [id number] TAKE 1 Univers 50 mg 1-19 TABLET BY ity of tablet 00:00: MOUTH [place] 00 EVERY 24 Medical HOURS Branch NEEDED FOR ERECTILE DYSFUNCTIO N ( ONE HOUR BEFORE SEXUAL ACTIVITY) CARVEDILOL Yes [id number] TAKE ONE Univers 12.5 mg 1-19 TABLET BY ity of tablet 00:00: MOUTH [place] 00 TWICE A Medical DAY WITH Branch MEALS CARVEDILOL Yes [id number] TAKE ONE Univers 12.5 mg 1-19 TABLET BY ity of tablet 00:00: MOUTH [place] 00 TWICE A Medical DAY WITH Branch MEALS CARVEDILOL Yes [id number] TAKE ONE Univers 12.5 mg 1-19 TABLET BY ity of tablet 00:00: MOUTH [place] 00 TWICE A Medical DAY WITH Branch MEALS CARVEDILOL 2021- No [id number] TAKE ONE Univers 12.5 mg 1-19 02-11 TABLET BY ity of tablet 00:00: 00:00 MOUTH [place] 00 :00 TWICE A Medical DAY WITH Branch MEALS sildenafiL 2021- No [id number] TAKE 1 Univers 50 mg 1-19 -28 TABLET BY ity of tablet 00:00: 00:00 MOUTH [place] 00 :00 EVERY 24 Medical HOURS Branch NEEDED FOR ERECTILE DYSFUNCTIO N ( ONE HOUR BEFORE SEXUAL ACTIVITY) lisinopriL Yes [id number] 10mg Take 1 U nivers 10 mg 1-07 tablet by ity of tablet 00:00: mouth [place] 00 daily. Medical Branch sildenafiL Yes [id number] TAKE ONE Univers 50 mg 1-07 TABLET BY ity of tablet 00:00: MOUTH [place] 00 EVERY 24 Medical HOURS Branch NEEDED FOR ERECTILE DYSFUNCTIO N ONE HOUR BEFORE SEXUAL ACTIVITY. lisinopriL 2022-0 Yes [id number] 10mg Take 1 U nivers 10 mg 1-07 tablet by ity of tablet 00:00: mouth [place] 00 daily. Medical Branch lisinopriL 2021-0 Yes [id number] 10mg Take 1 U nivers 10 mg 1-07 tablet by ity of tablet 00:00: mouth [place] 00 daily. Medical Branch lisinopriL 2021-0 Yes [id number] 10mg Take 1 U nivers 10 mg 1-07 tablet by ity of tablet 00:00: mouth [place] 00 daily. Medical Branch lisinopriL 2021-0 Yes [id number] 10mg Take 1 U nivers 10 mg 1-07 tablet by ity of tablet 00:00: mouth [place] 00 daily. Medical Branch lisinopriL 2021-0 Yes [id number] 10mg Take 1 U nivers 10 mg 1-07 tablet by ity of tablet 00:00: mouth [place] 00 daily. Medical Branch lisinopriL 2021-0 Yes [id number] 10mg Take 1 U nivers 10 mg 1-07 tablet by ity of tablet 00:00: mouth [place] 00 daily. Medical Branch lisinopriL 2021-0 Yes [id number] 10mg Take 1 U nivers 10 mg 1-07 tablet by ity of tablet 00:00: mouth [place] 00 daily. Medical Branch lisinopriL 2021-0 Yes [id number] 10mg Take 1 U nivers 10 mg 1-07 tablet by ity of tablet 00:00: mouth [place] 00 daily. Medical Branch lisinopriL 2021-0 Yes [id number] 10mg Take 1 U nivers 10 mg 1-07 tablet by ity of tablet 00:00: mouth [place] 00 daily. Medical Branch lisinopriL 2021-0 Yes [id number] 10mg Take 1 U nivers 10 mg 1-07 tablet by ity of tablet 00:00: mouth [place] 00 daily. Medical Branch lisinopriL 2021-0 Yes [id number] 10mg Take 1 U nivers 10 mg 1-07 tablet by ity of tablet 00:00: mouth [place] 00 daily. Medical Branch lisinopriL 2021-0 Yes [id number] 10mg Take 1 U nivers 10 mg 1-07 tablet by ity of tablet 00:00: mouth [place] 00 daily. Medical Branch lisinopriL 2021-0 Yes [id number] 10mg Take 1 U nivers 10 mg 1-07 tablet by ity of tablet 00:00: mouth [place] 00 daily. Medical Branch lisinopriL Yes [id number] 10mg Take 1 U nivers 10 mg 1-07 tablet by ity of tablet 00:00: mouth [place] 00 daily. Medical Branch lisinopriL Yes [id number] 10mg Take 1 U nivers 10 mg 1-07 tablet by ity of tablet 00:00: mouth [place] 00 daily. Medical Branch lisinopriL Yes [id number] 10mg Take 1 U nivers 10 mg 1-07 tablet by ity of tablet 00:00: mouth [place] 00 daily. Medical Branch lisinopriL Yes [id number] 10mg Take 1 U nivers 10 mg 1-07 tablet by ity of tablet 00:00: mouth [place] 00 daily. Medical Branch sildenafiL 2021- No [id number] TAKE ONE Univers 50 mg 1-07 -19 TABLET BY ity of tablet 00:00: 00:00 MOUTH [place] 00 :00 EVERY 24 Medical HOURS Branch NEEDED FOR ERECTILE DYSFUNCTIO N ONE HOUR BEFORE SEXUAL ACTIVITY. SILDENAFIL 2020-10 Yes [id number] TAKE ONE [facility] 50 mg 2-27 TABLET BY ity of tablet 00:00: MOUTH [place] 00 EVERY 24 Medical HOURS Branch NEEDED FOR ERECTILE DYSFUNCTIO N ONE HOUR BEFORE SEXUAL ACTIVITY SILDENAFIL 2020-10- No [id number] TAKE ONE Univers 50 mg 2-27 01-07 TABLET BY ity of tablet 00:00: 00:00 MOUTH [place] 00 :00 EVERY 24 Medical HOURS Branch NEEDED FOR ERECTILE DYSFUNCTIO N ONE HOUR BEFORE SEXUAL ACTIVITY sildenafiL 2020-10 Yes [id number] 50mg Take 1 Univers 50 mg 2-13 tablet by ity of tablet 00:00: mouth [place] 00 every 24 Medical (twenty-fo Branch ur) hours as needed for Other (ed). TAKE ONE TABLET BY MOUTH DAILY NEEDED FOR 1 HOUR BEFORE SEXUAL ACTIVITY sildenafiL 2020-10- No [id number] 50mg Take 1 Univers 50 mg 2-13 12-27 tablet by ity of tablet 00:00: 00:00 mouth [place] 00 :00 every 24 Medical (twenty-fo Branch ur) hours as needed for Other (ed). TAKE ONE TABLET BY MOUTH DAILY NEEDED FOR 1 HOUR BEFORE SEXUAL ACTIVITY SILDENAFIL 2020-10 Yes [id number] TAKE ONE [facility] 50 mg 2-03 TABLET BY ity of tablet 00:00: MOUTH [place] 00 DAILY Medical NEEDED FOR Branch 1 HOUR BEFORE SEXUAL ACTIVITY CARVEDILOL 2020-10 Yes [id number] TAKE ONE Univers 12.5 mg 2-03 TABLET BY ity of tablet 00:00: MOUTH [place] 00 TWICE A Medical DAY WITH Branch MEALS SILDENAFIL 2020-10 Yes [id number] TAKE ONE [facility] 50 mg 2-03 TABLET BY ity of tablet 00:00: MOUTH [place] 00 DAILY Medical NEEDED FOR Branch 1 HOUR BEFORE SEXUAL ACTIVITY CARVEDILOL 2020-10 Yes [id number] TAKE ONE Univers 12.5 mg 2-03 TABLET BY ity of tablet 00:00: MOUTH [place] 00 TWICE A Medical DAY WITH Branch MEALS CARVEDILOL 2020-10 Yes [id number] TAKE ONE Univers 12.5 mg 2-03 TABLET BY ity of tablet 00:00: MOUTH [place] 00 TWICE A Medical DAY WITH Branch MEALS CARVEDILOL 2020-10 Yes [id number] TAKE ONE Univers 12.5 mg 2-03 TABLET BY ity of tablet 00:00: MOUTH [place] 00 TWICE A Medical DAY WITH Branch MEALS CARVEDILOL 2020-10 Yes [id number] TAKE ONE [facility] 12.5 mg 2-03 TABLET BY ity of tablet 00:00: MOUTH [place] 00 TWICE A Medical DAY WITH Branch MEALS CARVEDILOL 2020-10- No [id number] TAKE ONE Univers 12.5 mg 2-03 01-19 TABLET BY ity of tablet 00:00: 00:00 MOUTH [place] 00 :00 TWICE A Medical DAY WITH Branch MEALS SILDENAFIL 2020-10- No [id number] TAKE ONE [facility] 50 mg 2-03 12-13 TABLET BY ity of tablet 00:00: 00:00 MOUTH [place] 00 :00 DAILY Medical NEEDED FOR Branch 1 HOUR BEFORE SEXUAL ACTIVITY SILDENAFIL 2020-10 Yes [id number] TAKE ONE [facility] 50 mg 1-24 TABLET BY ity of tablet 00:00: MOUTH ONCE [place] 00 DAILY Medical NEEDED 1 Branch HOUR PRIOR TO SEXUAL ACTIVITY SILDENAFIL 2020-10- No [id number] TAKE ONE [facility] 50 mg 1-24 12-03 TABLET BY ity of tablet 00:00: 00:00 MOUTH [place]CE [place] 00 :[place] DAILY Medical NEEDED 1 Branch HOUR PRIOR TO SEXUAL ACTIVITY SILDENAFIL 2020-10 Yes [id number] TAKE ONE [facility] 50 mg 1-10 TABLET BY ity of tablet 00:00: MOUTH [place] 00 DAILY Medical NEEDED 1 Branch HOUR PRIOR TO SEXUAL ACTIVITY SILDENAFIL 2020-10- No [id number] TAKE ONE [facility] 50 mg 1-10 11-24 TABLET BY ity of tablet 00:00: 00:00 MOUTH [place] 00 :00 DAILY Medical NEEDED 1 Branch HOUR PRIOR TO SEXUAL ACTIVITY cloNIDine 2020-10 Yes [id number] .1mg Take 1 [facility] 0.1 mg 1-09 tablet by ity of tablet 00:00: mouth 3 00 (three) Medical times Branch daily as needed for Other (elevated blood pressure or signs of alcohol withdrawal present). cloNIDine 2020-10 Yes [id number] .1mg Take 1 [facility] 0.1 mg 1-09 tablet by ity of tablet 00:00: mouth 3 (three) Medical times Branch daily as needed for Other (elevated blood pressure or signs of alcohol withdrawal present). cloNIDine 2020-10 Yes [id number] .1mg Take 1 [facility] 0.1 mg 1-09 tablet by ity of tablet 00:00: mouth 3 (three) Medical times Branch daily as needed for Other (elevated blood pressure or signs of alcohol withdrawal present). cloNIDine 2020-10 Yes [id number] .1mg Take 1 [facility] 0.1 mg 1-09 tablet by ity of tablet 00:00: mouth 3 (three) Medical times Branch daily as needed for Other (elevated blood pressure or signs of alcohol withdrawal present). cloNIDine 2020-10 Yes [id number] .1mg Take 1 [facility] 0.1 mg 1-09 tablet by ity of tablet 00:00: mouth 3 (three) Medical times Branch daily as needed for Other (elevated blood pressure or signs of alcohol withdrawal present). cloNIDine 2020-10 Yes [id number] .1mg Take 1 [facility] 0.1 mg 1-09 tablet by ity of tablet 00:00: mouth 3 (three) Medical times Branch daily as needed for Other (elevated blood pressure or signs of alcohol withdrawal present). cloNIDine 2020-10 Yes [id number] .1mg Take 1 [facility] 0.1 mg 1-09 tablet by ity of tablet 00:00: mouth 3 (three) Medical times Branch daily as needed for Other (elevated blood pressure or signs of alcohol withdrawal present). cloNIDine 2020-10 Yes [id number] .1mg Take 1 [facility] 0.1 mg 1-09 tablet by ity of tablet 00:00: mouth 3 [place] (three) Medical times Branch daily as needed for Other (elevated blood pressure or signs of alcohol withdrawal present). cloNIDine 2020-10 Yes [id number] .1mg Take 1 [facility] 0.1 mg 1-09 tablet by ity of tablet 00:00: mouth 3 (three) Medical times Branch daily as needed for Other (elevated blood pressure or signs of alcohol withdrawal present). cloNIDine 2020-10 Yes [id number] .1mg Take 1 [facility] 0.1 mg 1-09 tablet by ity of tablet 00:00: mouth 3 (three) Medical times Branch daily as needed for Other (elevated blood pressure or signs of alcohol withdrawal present). cloNIDine 2020-10 Yes [id number] .1mg Take 1 [facility] 0.1 mg 1-09 tablet by ity of tablet 00:00: mouth 3 (three) Medical times Branch daily as needed for Other (elevated blood pressure or signs of alcohol withdrawal present). cloNIDine 2020-10 Yes [id number] .1mg Take 1 [facility] 0.1 mg 1-09 tablet by ity of tablet 00:00: mouth 3 (three) Medical times Branch daily as needed for Other (elevated blood pressure or signs of alcohol withdrawal present). cloNIDine 2020-10 Yes [id number] .1mg Take 1 [facility] 0.1 mg 1-09 tablet by ity of tablet 00:00: mouth 3 (three) Medical times Branch daily as needed for Other (elevated blood pressure or signs of alcohol withdrawal present). cloNIDine 2020-10 Yes [id number] .1mg Take 1 [facility] 0.1 mg 1-09 tablet by ity of tablet 00:00: mouth 3 (three) Medical times Branch daily as needed for Other (elevated blood pressure or signs of alcohol withdrawal present). cloNIDine 2020-10 Yes [id number] .1mg Take 1 [facility] 0.1 mg 1-09 tablet by ity of tablet 00:00: mouth 3 [place] 00 (three) Medical times Branch daily as needed for Other (elevated blood pressure or signs of alcohol withdrawal present). cloNIDine 2020-10 Yes [id number] .1mg Take 1 [facility] 0.1 mg 1-09 tablet by [facility] tablet 00:00: mouth 3 [place] 00 (three) Medical times Branch daily as needed for Other (elevated blood pressure or signs of alcohol withdrawal present). cloNIDine 2020-10 Yes [id number] .1mg Take 1 [facility] 0.1 mg 1-09 tablet by [facility] tablet 00:00: mouth 3 [place] 00 (three) Medical times Branch daily as needed for Other (elevated blood pressure or signs of alcohol withdrawal present). SILDENAFIL 2020-10 Yes [id number] TAKE ONE [facility] 50 mg 1-01 TABLET BY [facility] tablet 00:00: MOUTH [place] 00 DAILY Medical NEEDED 1 Branch HOUR PRIOR TO SEXUAL ACTIVITY CARVEDILOL 2020-10 Yes [id number] TAKE ONE [facility] 12.5 mg 1-01 TABLET BY [facility] tablet 00:00: MOUTH [place] 00 TWICE A Medical DAY WITH Branch MEALS SILDENAFIL 2020-10 Yes [id number] TAKE ONE [facility] 50 mg 1-01 TABLET BY [facility] tablet 00:00: MOUTH [place] 00 DAILY Medical NEEDED 1 Branch HOUR PRIOR TO SEXUAL ACTIVITY CARVEDILOL 2020-10 Yes [id number] TAKE ONE [facility] 12.5 mg 1-01 TABLET BY [facility] tablet 00:00: MOUTH [place] 00 TWICE A Medical DAY WITH Branch MEALS SILDENAFIL 2020-10 Yes [id number] TAKE ONE [facility] 50 mg 1-01 TABLET BY [facility] tablet 00:00: MOUTH [place] 00 DAILY Medical NEEDED 1 Branch HOUR PRIOR TO SEXUAL ACTIVITY CARVEDILOL 2020-10 Yes [id number] TAKE ONE [facility] 12.5 mg 1-01 TABLET BY [facility] tablet 00:00: MOUTH [place] 00 TWICE A Medical DAY WITH Branch MEALS SILDENAFIL 2020-10 Yes [id number] TAKE ONE [facility] 50 mg 1-01 TABLET BY [facility] tablet 00:00: MOUTH [place] 00 DAILY Medical NEEDED 1 Branch HOUR PRIOR TO SEXUAL ACTIVITY CARVEDILOL 2020-10 Yes [id number] TAKE ONE [facility] 12.5 mg 1-01 TABLET BY [facility] tablet 00:00: MOUTH [place] 00 TWICE A Medical DAY WITH Branch MEALS CARVEDILOL 2020-10 Yes [id number] TAKE ONE [facility] 12.5 mg 1-01 TABLET BY [facility] tablet 00:00: MOUTH [place] 00 TWICE A Medical DAY WITH Branch MEALS CARVEDILOL 2020-10 Yes [id number] TAKE ONE [facility] 12.5 mg 1-01 TABLET BY [facility] tablet 00:00: MOUTH [place] 00 TWICE A Medical DAY WITH Branch MEALS CARVEDILOL 2020-10- No [id number] TAKE ONE [facility] 12.5 mg 1-01 12-03 TABLET BY [facility] tablet 00:00: 00:00 MOUTH [place] 00 :00 TWICE A Medical DAY WITH Branch MEALS SILDENAFIL 2020-10- No [id number] TAKE ONE [facility] 50 mg 1-01 11-10 TABLET BY [facility] tablet 00:00: 00:00 MOUTH [place] 00 :00 DAILY Medical NEEDED 1 Branch HOUR PRIOR TO SEXUAL ACTIVITY SILDENAFIL 2020-10 Yes [id number] TAKE ONE [facility] 50 mg 0-19 TABLET BY [facility] tablet 00:00: MOUTH [place] 00 DAILY Medical NEEDED (1 Branch HOUR PRIOR TO SEXUAL ACITIVITY) SILDENAFIL 2020-10 Yes [id number] TAKE ONE [facility] 50 mg 0-19 TABLET BY [facility] tablet 00:00: MOUTH [place] 00 DAILY Medical NEEDED (1 Branch HOUR PRIOR TO SEXUAL ACITIVITY) SILDENAFIL 2020-10- No [id number] TAKE ONE [facility] 50 mg 0-19 11-01 TABLET BY [facility] tablet 00:00: 00:00 MOUTH [place] 00 :00 DAILY Medical NEEDED (1 Branch HOUR PRIOR TO SEXUAL ACITIVITY) CARVEDILOL Yes [id number] TAKE ONE [facility] 12.5 mg 9-13 TABLET BY [facility] tablet 00:00: MOUTH [place] 00 TWICE A Medical DAY WITH Branch MEALS CARVEDILOL Yes [id number] TAKE ONE [facility] 12.5 mg 9-13 TABLET BY [facility] tablet 00:00: MOUTH [place] 00 TWICE A Medical DAY WITH Branch MEALS CARVEDILOL Yes [id number] TAKE ONE [facility] 12.5 mg 9-13 TABLET BY [facility] tablet 00:00: MOUTH [place] 00 TWICE A Medical DAY WITH Branch MEALS CARVEDILOL Yes [id number] TAKE ONE [facility] 12.5 mg 9-13 TABLET BY [facility] tablet 00:00: MOUTH [place] 00 TWICE A Medical DAY WITH Branch MEALS CARVEDILOL 2020- No [id number] TAKE ONE [facility] 12.5 mg 9-13 11- TABLET BY [facility] tablet 00:00: 00:00 MOUTH [place] 00 :00 TWICE A Medical DAY WITH Branch MEALS SILDENAFIL 2020-0 Yes [id number] TAKE ONE [facility] 50 mg 8-30 TABLET BY [facility] tablet 00:00: MOUTH [place] 00 DAILY Medical NEEDED( 1 Branch HOUR PRIOR TO SEXUAL ACTIVITY) SILDENAFIL 2020-0 Yes [id number] TAKE ONE [facility] 50 mg 8-30 TABLET BY [facility] tablet 00:00: MOUTH [place] 00 DAILY Medical NEEDED( 1 Branch HOUR PRIOR TO SEXUAL ACTIVITY) SILDENAFIL 0 Yes [id number] TAKE ONE [facility] 50 mg 8-30 TABLET BY [facility] tablet 00:00: MOUTH [place] 00 DAILY Medical NEEDED( 1 Branch HOUR PRIOR TO SEXUAL ACTIVITY) SILDENAFIL 0 Yes [id number] TAKE ONE [facility] 50 mg 8-30 TABLET BY [facility] tablet 00:00: MOUTH [place] 00 DAILY Medical NEEDED( 1 Branch HOUR PRIOR TO SEXUAL ACTIVITY) SILDENAFIL 202- No [id number] TAKE ONE [facility] 50 mg 8-30 10-19 TABLET BY [facility] tablet 00:00: 00:00 MOUTH [place] 00 :00 DAILY Medical NEEDED( 1 Branch HOUR PRIOR TO SEXUAL ACTIVITY) azithromyci 2020-0 Yes [id number] 250mg Take 1 [facility] n 250 mg 8-16 tablet by [facility] tablet 00:00: mouth [place] 00 daily. Medical Take 500 Branch mg day 1, then 250 mg days 2 to 5. azithromyci 2020-0 Yes [id number] 250mg Take 1 [facility] n 250 mg 8-16 tablet by [facility] tablet 00:00: mouth [place] 00 daily. Medical Take 500 Branch mg day 1, then 250 mg days 2 to 5. azithromyci 2020-0 Yes [id number] 250mg Take 1 [facility] n 250 mg 8-16 tablet by [facility] tablet 00:00: mouth [place] 00 daily. Medical Take 500 Branch mg day 1, then 250 mg days 2 to 5. azithromyci 2020-0 Yes [id number] 250mg Take 1 [facility] n 250 mg 8-16 tablet by [facility] tablet 00:00: mouth [place] 00 daily. Medical Take 500 Branch mg day 1, then 250 mg days 2 to 5. azithromyci 2020-0 Yes [id number] 250mg Take 1 [facility] n 250 mg 8-16 tablet by [facility] tablet 00:00: mouth [place] 00 daily. Medical Take 500 Branch mg day 1, then 250 mg days 2 to 5. azithromyci 2021-0 Yes [id number] 250mg Take 1 [facility] n 250 mg 8-16 tablet by [facility] tablet 00:00: mouth [place] 00 daily. Medical Take 500 Branch mg day 1, then 250 mg days 2 to 5. azithromyci 1-0 Yes [id number] 250mg Take 1 [facility] n 250 mg 8-16 tablet by [facility] tablet 00:00: mouth [place] 00 daily. Medical Take 500 Branch mg day 1, then 250 mg days 2 to 5. azithromyci 1-0 Yes [id number] 250mg Take 1 [facility] n 250 mg 8-16 tablet by [facility] tablet 00:00: mouth [place] 00 daily. Medical Take 500 Branch mg day 1, then 250 mg days 2 to 5. azithromyci 1-0 Yes [id number] 250mg Take 1 [facility] n 250 mg 8-16 tablet by [facility] tablet 00:00: mouth [place] 00 daily. Medical Take 500 Branch mg day 1, then 250 mg days 2 to 5. azithromyci 1-0 Yes [id number] 250mg Take 1 [facility] n 250 mg 8-16 tablet by [facility] tablet 00:00: mouth [place] 00 daily. Medical Take 500 Branch mg day 1, then 250 mg days 2 to 5. azithromyci 1-0 Yes [id number] 250mg Take 1 [facility] n 250 mg 8-16 tablet by [facility] tablet 00:00: mouth [place] 00 daily. Medical Take 500 Branch mg day 1, then 250 mg days 2 to 5. azithromyci 1-0 Yes [id number] 250mg Take 1 [facility] n 250 mg 8-16 tablet by [facility] tablet 00:00: mouth [place] 00 daily. Medical Take 500 Branch mg day 1, then 250 mg days 2 to 5. azithromyci 2021-0 Yes [id number] 250mg Take 1 [facility] n 250 mg 8-16 tablet by [facility] tablet 00:00: mouth [place] 00 daily. Medical Take 500 Branch mg day 1, then 250 mg days 2 to 5. azithromyci 2021-0 Yes [id number] 250mg Take 1 [facility] n 250 mg 8-16 tablet by [facility] tablet 00:00: mouth [place] 00 daily. Medical Take 500 Branch mg day 1, then 250 mg days 2 to 5. azithromyci 2021-0 Yes [id number] 250mg Take 1 [facility] n 250 mg 8-16 tablet by [facility] tablet 00:00: mouth [place] 00 daily. Medical Take 500 Branch mg day 1, then 250 mg days 2 to 5. azithromyci 1-0 Yes [id number] 250mg Take 1 [facility] n 250 mg 8-16 tablet by [facility] tablet 00:00: mouth [place] 00 daily. Medical Take 500 Branch mg day 1, then 250 mg days 2 to 5. azithromyci 1-0 Yes [id number] 250mg Take 1 [facility] n 250 mg 8-16 tablet by [facility] tablet 00:00: mouth [place] 00 daily. Medical Take 500 Branch mg day 1, then 250 mg days 2 to 5. azithromyci 1-0 Yes [id number] 250mg Take 1 [facility] n 250 mg 8-16 tablet by [facility] tablet 00:00: mouth [place] 00 daily. Medical Take 500 Branch mg day 1, then 250 mg days 2 to 5. azithromyci 2020-0 Yes [id number] 250mg Take 1 [facility] n 250 mg 8-16 tablet by [facility] tablet 00:00: mouth [place] 00 daily. Medical Take 500 Branch mg day 1, then 250 mg days 2 to 5. azithromyci 1-0 Yes [id number] 250mg Take 1 [facility] n 250 mg 8-16 tablet by [facility] tablet 00:00: mouth [place] 00 daily. Medical Take 500 Branch mg day 1, then 250 mg days 2 to 5. azithromyci 1-0 Yes [id number] 250mg Take 1 [facility] n 250 mg 8-16 tablet by [facility] tablet 00:00: mouth [place] 00 daily. Medical Take 500 Branch mg day 1, then 250 mg days 2 to 5. azithromyci 1-0 Yes [id number] 250mg Take 1 [facility] n 250 mg 8-16 tablet by [facility] tablet 00:00: mouth [place] 00 daily. Medical Take 500 Branch mg day 1, then 250 mg days 2 to 5. azithromyci 1-0 Yes [id number] 250mg Take 1 [facility] n 250 mg 8-16 tablet by [facility] tablet 00:00: mouth [place] 00 daily. Medical Take 500 Branch mg day 1, then 250 mg days 2 to 5. azithromyci 2020-0 Yes [id number] 250mg Take 1 [facility] n 250 mg 8-16 tablet by [facility] tablet 00:00: mouth [place] 00 daily. Medical Take 500 Branch mg day 1, then 250 mg days 2 to 5. azithromyci 2020-0 Yes [id number] 250mg Take 1 [facility] n 250 mg 8-16 tablet by [facility] tablet 00:00: mouth [place] 00 daily. Medical Take 500 Branch mg day 1, then 250 mg days 2 to 5. CARVEDILOL 2020-0 Yes [id number] TAKE ONE [facility] 12.5 mg 7-31 TABLET BY [facility] tablet 00:00: MOUTH [place] 00 TWICE A Medical DAY WITH Branch MEALS CARVEDILOL 2020-0 Yes [id number] TAKE ONE [facility] 12.5 mg 7-31 TABLET BY [facility] tablet 00:00: MOUTH [place] 00 TWICE A Medical DAY WITH Branch MEALS CARVEDILOL 2020-0 Yes [id number] TAKE ONE [facility] 12.5 mg 7-31 TABLET BY [facility] tablet 00:00: MOUTH [place] 00 TWICE A Medical DAY WITH Branch MEALS CARVEDILOL 2020-0 2020- No [id number] TAKE ONE [facility] 12.5 mg 7-31 09-13 TABLET BY [facility] tablet 00:00: 00:00 MOUTH [place] 00 :00 TWICE A Medical DAY WITH Branch MEALS CARVEDILOL 2020-0 1- No [id number] TAKE ONE [facility] 12.5 mg 7-31 09-13 TABLET BY [facility] tablet 00:00: 00:00 MOUTH [place] 00 :00 TWICE A Medical DAY WITH Branch MEALS lisinopriL 2020-0 Yes [id number] 10mg Take 1 [facility] 10 mg 7-15 tablet by [facility] tablet 00:00: mouth [place] 00 daily. Medical Branch lisinopriL 2020-0 Yes [id number] 10mg Take 1 [facility] 10 mg 7-15 tablet by [facility] tablet 00:00: mouth [place] 00 daily. Medical Branch lisinopriL 2020-0 Yes [id number] 10mg Take 1 [facility] 10 mg 7-15 tablet by [facility] tablet 00:00: mouth [place] 00 daily. Medical Branch lisinopriL 0 Yes [id number] 10mg Take 1 [facility] 10 mg 7-15 tablet by [facility] tablet 00:00: mouth [place] 00 daily. Medical Branch lisinopriL 0 Yes [id number] 10mg Take 1 [facility] 10 mg 7-15 tablet by [facility] tablet 00:00: mouth [place] 00 daily. Medical Branch lisinopriL 0 Yes [id number] 10mg Take 1 [facility] 10 mg 7-15 tablet by [facility] tablet 00:00: mouth [place] 00 daily. Medical Branch lisinopriL 0 Yes [id number] 10mg Take 1 [facility] 10 mg 7-15 tablet by [facility] tablet 00:00: mouth [place] 00 daily. Medical Branch lisinopriL 0 Yes [id number] 10mg Take 1 [facility] 10 mg 7-15 tablet by [facility] tablet 00:00: mouth [place] 00 daily. Medical Branch lisinopriL 0 Yes [id number] 10mg Take 1 [facility] 10 mg 7-15 tablet by [facility] tablet 00:00: mouth [place] 00 daily. Medical Branch lisinopriL 0 Yes [id number] 10mg Take 1 [facility] 10 mg 7-15 tablet by [facility] tablet 00:00: mouth [place] 00 daily. Medical Branch lisinopriL 0 Yes [id number] 10mg Take 1 [facility] 10 mg 7-15 tablet by [facility] tablet 00:00: mouth [place] 00 daily. Medical Branch lisinopriL 0 Yes [id number] 10mg Take 1 [facility] 10 mg 7-15 tablet by [facility] tablet 00:00: mouth [place] 00 daily. Medical Branch lisinopriL 0 Yes [id number] 10mg Take 1 [facility] 10 mg 7-15 tablet by [facility] tablet 00:00: mouth [place] 00 daily. Medical Branch lisinopriL 0 Yes [id number] 10mg Take 1 [facility] 10 mg 7-15 tablet by [facility] tablet 00:00: mouth [place] 00 daily. Medical Branch lisinopriL 0 Yes [id number] 10mg Take 1 [facility] 10 mg 7-15 tablet by [facility] tablet 00:00: mouth [place] 00 daily. Medical Branch lisinopriL 2020-0 Yes [id number] 10mg Take 1 [facility] 10 mg 7-15 tablet by [facility] of tablet 00:00: mouth [place] 00 daily. [facility] Branch lisinopriL 0 Yes [id number] 10mg Take 1 [facility] 10 mg 7-15 tablet by [facility] of tablet 00:00: mouth [place] 00 daily. [facility] Branch lisinopriL Yes [id number] 10mg Take 1 [facility] 10 mg 7-15 tablet by [facility] of tablet 00:00: mouth [place] 00 daily. [facility] lisinopriL 0 Yes [id number] 10mg Take 1 [facility] 10 mg 7-15 tablet by [facility] of tablet 00:00: mouth [place] 00 daily. [facility] lisinopriL Yes [id number] 10mg Take 1 [facility] 10 mg 7-15 tablet by [facility] of tablet 00:00: mouth [place] 00 daily. [facility] lisinopriL 2021- No [id number] 10mg Take 1 [facility] 10 mg 7-15 01-07 tablet by [facility] tablet 00:00: 00:00 mouth [place] 00 :00 daily. [facility] cloNIDine 2020- No .1mg 0.1 mg, [facility] ers (CATAPRES) 04-18-09 Oral, [facility] tablet 0.1 20:00: 19:13 ONCE, 1 [place] [facility] mg 00 :00 dose, Wed04/18/21 at Branch 1500, STAT cloNIDine Yes [id number] .1mg Take 1 [facility] 0.1 mg 7-09 tablet by [facility] tablet 00:00: mouth 3 (three) Medical times [place] daily as needed for Other (elevated blood pressure or signs of alcohol withdrawal present). cloNIDine Yes [id number] .1mg Take 1 [facility] 0.1 mg 7-09 tablet by [facility] tablet 00:00: mouth 3 00 (three) Medical times [place] daily as needed for Other (elevated blood pressure or signs of alcohol withdrawal present). cloNIDine Yes [id number] .1mg Take 1 [facility] 0.1 mg 7-09 tablet by [facility] tablet 00:00: mouth 3 [place] 00 (three) Medical times [place] daily as needed for Other (elevated blood pressure or signs of alcohol withdrawal present). cloNIDine Yes [id number] .1mg Take 1 [facility] 0.1 mg 7-09 tablet by [facility] tablet 00:00: mouth 3 [place] (three) Medical times Branch daily as needed for Other (elevated blood pressure or signs of alcohol withdrawal present). cloNIDine Yes [id number] .1mg Take 1 [facility] 0.1 mg 7-09 tablet by [facility] tablet 00:00: mouth 3 (three) Medical times Branch daily as needed for Other (elevated blood pressure or signs of alcohol withdrawal present). cloNIDine Yes [id number] .1mg Take 1 [facility] 0.1 mg 7-09 tablet by [facility] tablet 00:00: mouth 3 (three) Medical times Branch daily as needed for Other (elevated blood pressure or signs of alcohol withdrawal present). cloNIDine Yes [id number] .1mg Take 1 [facility] 0.1 mg 7-09 tablet by [facility] tablet 00:00: mouth 3 (three) Medical times Branch daily as needed for Other (elevated blood pressure or signs of alcohol withdrawal present). cloNIDine Yes [id number] .1mg Take 1 [facility] 0.1 mg 7-09 tablet by [facility] of tablet 00:00: mouth 3 (three) Medical times Branch daily as needed for Other (elevated blood pressure or signs of alcohol withdrawal present). cloNIDine Yes [id number] .1mg Take 1 [facility] 0.1 mg 7-09 tablet by [facility] of tablet 00:00: mouth 3 (three) Medical times Branch daily as needed for Other (elevated blood pressure or signs of alcohol withdrawal present). cloNIDine Yes [id number] .1mg Take 1 [facility] 0.1 mg 7-09 tablet by [facility] of tablet 00:00: mouth 3 [place] 00 (three) Medical times Branch daily as needed for Other (elevated blood pressure or signs of alcohol withdrawal present). cloNIDine Yes [id number] .1mg Take 1 [facility] 0.1 mg 7-09 tablet by [facility] tablet 00:00: mouth 3 [place] 00 (three) Medical times Branch daily as needed for Other (elevated blood pressure or signs of alcohol withdrawal present). cloNIDine Yes [id number] .1mg Take 1 [facility] 0.1 mg 7-09 tablet by [facility] of tablet 00:00: mouth 3 [place] 00 (three) Medical times Branch daily as needed for Other (elevated blood pressure or signs of alcohol withdrawal present). cloNIDine Yes [id number] .1mg Take 1 [facility] 0.1 mg 7-09 tablet by [facility] of tablet 00:00: mouth 3 [place] 00 (three) Medical times Branch daily as needed for Other (elevated blood pressure or signs of alcohol withdrawal present). cloNIDine 2020- No [id number] .1mg Take 1 [facility] 0.1 mg 7-09 11-09 tablet by [facility] of tablet 00:00: 00:00 mouth 3 [place] 00 :00 (three) Medical times Branch daily as needed for Other (elevated blood pressure or signs of alcohol withdrawal present). CARVEDILOL Yes [id number] TAKE ONE [facility] 12.5 mg 6-30 TABLET BY [facility] of tablet 00:00: MOUTH [place] 00 TWICE A Medical DAY WITH Branch MEALS CARVEDILOL Yes [id number] TAKE ONE [facility] 12.5 mg 6-30 TABLET BY [facility] of tablet 00:00: MOUTH [place] 00 TWICE A Medical DAY WITH Branch MEALS CARVEDILOL Yes [id number] TAKE ONE [facility] 12.5 mg 6-30 TABLET BY [facility] of tablet 00:00: MOUTH [place] 00 TWICE A Medical DAY WITH Branch MEALS CARVEDILOL Yes [id number] TAKE ONE [facility] 12.5 mg 6-30 TABLET BY [facility] of tablet 00:00: MOUTH [place] 00 TWICE A Medical DAY WITH Branch MEALS CARVEDILOL Yes [id number] TAKE ONE [facility] 12.5 mg 6-30 TABLET BY [facility] of tablet 00:00: MOUTH [place] 00 TWICE A Medical DAY WITH Branch MEALS CARVEDILOL Yes [id number] TAKE ONE [facility] 12.5 mg 6-30 TABLET BY [facility] of tablet 00:00: MOUTH [place] 00 TWICE A Medical DAY WITH Branch MEALS CARVEDILOL 2020- No [id number] TAKE ONE [facility] 12.5 mg 6-30 07-31 TABLET BY [facility] of tablet 00:00: 00:00 MOUTH [place] 00 :00 TWICE A Medical DAY WITH Branch MEALS SILDENAFIL Yes [id number] TAKE ONE [facility] 50 mg 6-10 TABLET BY [facility] of tablet 00:00: MOUTH [place] 00 EVERY 24 Medical HOURS Branch NEEDED FOR OTHER (1 HOUR PRIOR TO SEXUAL ACTIVITY) SILDENAFIL Yes [id number] TAKE ONE [facility] 50 mg 6-10 TABLET BY [facility] of tablet 00:00: MOUTH [place] 00 EVERY 24 Medical HOURS Branch NEEDED FOR OTHER (1 HOUR PRIOR TO SEXUAL ACTIVITY) SILDENAFIL Yes [id number] TAKE ONE [facility] 50 mg 6-10 TABLET BY [facility] of tablet 00:00: MOUTH [place] 00 EVERY 24 Medical HOURS Branch NEEDED FOR OTHER (1 HOUR PRIOR TO SEXUAL ACTIVITY) SILDENAFIL Yes [id number] TAKE ONE [facility] 50 mg 6-10 TABLET BY [facility] of tablet 00:00: MOUTH [place] 00 EVERY 24 Medical HOURS Branch NEEDED FOR OTHER (1 HOUR PRIOR TO SEXUAL ACTIVITY) SILDENAFIL Yes [id number] TAKE ONE [facility] 50 mg 6-10 TABLET BY [facility] of tablet 00:00: MOUTH [place] 00 EVERY 24 Medical HOURS Branch NEEDED FOR OTHER (1 HOUR PRIOR TO SEXUAL ACTIVITY) SILDENAFIL Yes [id number] TAKE ONE [facility] 50 mg 6-10 TABLET BY [facility] of tablet 00:00: MOUTH [place] 00 EVERY 24 Medical HOURS Branch NEEDED FOR OTHER (1 HOUR PRIOR TO SEXUAL ACTIVITY) SILDENAFIL Yes [id number] TAKE ONE [facility] 50 mg 6-10 TABLET BY [facility] of tablet 00:00: MOUTH [place] 00 EVERY 24 Medical HOURS Branch NEEDED FOR OTHER (1 HOUR PRIOR TO SEXUAL ACTIVITY) SILDENAFIL Yes [id number] TAKE ONE [facility] 50 mg 6-10 TABLET BY [facility] of tablet 00:00: MOUTH [place] 00 EVERY 24 Medical HOURS Branch NEEDED FOR OTHER (1 HOUR PRIOR TO SEXUAL ACTIVITY) SILDENAFIL 2020- No [id number] TAKE ONE [facility] 50 mg 6-10 08-30 TABLET BY [facility] of tablet 00:00: 00:00 MOUTH [place] 00 :00 EVERY 24 Medical HOURS Branch NEEDED FOR OTHER (1 HOUR PRIOR TO SEXUAL ACTIVITY) SILDENAFIL 2020- No [id number] TAKE ONE [facility] 50 mg 6-10 08-30 TABLET BY [facility] of tablet 00:00: 00:00 MOUTH [place] 00 :00 EVERY 24 Medical HOURS Branch NEEDED FOR OTHER (1 HOUR PRIOR TO SEXUAL ACTIVITY) CARVEDILOL Yes [id number] TAKE ONE [facility] 12.5 mg 4-26 TABLET BY [facility] of tablet 00:00: MOUTH [place] 00 TWICE A Medical DAY WITH Branch MEALS CARVEDILOL Yes [id number] TAKE ONE [facility] 12.5 mg 4-26 TABLET BY [facility] of tablet 00:00: MOUTH [place] 00 TWICE A Medical DAY WITH Branch MEALS CARVEDILOL 2020- No [id number] TAKE ONE [facility] 12.5 mg 4-26 06-30 TABLET BY [facility] of tablet 00:00: 00:00 MOUTH [place] 00 :00 TWICE A Medical DAY WITH Branch MEALS sildenafiL Yes [id number] 50mg Take 1 [facility] 50 mg 2-05 tablet by [facility] of tablet 00:00: mouth [place] 00 every 24 Medical (twenty-fo Branch ur) hours as needed for Other (1 h prior to sexual activity). sildenafiL Yes [id number] 50mg Take 1 [facility] 50 mg 2-05 tablet by [facility] of tablet 00:00: mouth [place] 00 every 24 Medical (twenty-fo Branch ur) hours as needed for Other (1 h prior to sexual activity). sildenafiL Yes [id number] 50mg Take 1 [facility] 50 mg 2-05 tablet by [facility] of tablet 00:00: mouth [place] 00 every 24 Medical (twenty-fo Branch ur) hours as needed for Other (1 h prior to sexual activity). sildenafiL 2020- No [id number] 50mg Take 1 [facility] 50 mg 2-05 06-10 tablet by [facility] of tablet 00:00: 00:00 mouth [place] 00 :00 every 24 Medical (twenty-fo Branch ur) hours as needed for Other (1 h prior to sexual activity). carvediloL Yes [id number] 6.25mg Take 1 [facility] 6.25 mg 2-04 tablet by [facility] of tablet 00:00: mouth 2 00 (two) Medical times Branch daily with meals. carvediloL 0 Yes [id number] 6.25mg Take 1 [facility] 6.25 mg 2-04 tablet by [facility] of tablet 00:00: mouth 2 [place] 00 (two) Medical times Branch daily with meals. carvediloL Yes [id number] 12.5mg Take 1 [facility] 12.5 mg 2-04 tablet by [facility] of tablet 00:00: mouth 2 [place] 00 (two) Medical times Branch daily with meals. sildenafiL 2020-0 Yes [id number] 50mg Take 1 [facility] 50 mg 2-04 tablet by [facility] of tablet 00:00: mouth as 00 needed for Medical Other (1 h Branch prior to sexual activity). chlordiazeP 2020-0 Yes [id number] 25mg Take 1 [facility] OXIDE 25 mg 2-04 capsule by it y of capsule 00:00: mouth 3 (three) Medical times Branch daily as needed for Anxiety. carvediloL 2020-0 Yes [id number] 6.25mg Take 1 [facility] 6.25 mg 2-04 tablet by [facility]y of tablet 00:00: mouth (two) Medical times Branch daily with meals. carvediloL 2020-0 Yes [id number] 12.5mg Take 1 [facility] 12.5 mg 2-04 tablet by [facility]y of tablet 00:00: mouth (two) Medical times Branch daily with meals. sildenafiL 2020-0 Yes [id number] 50mg Take 1 [facility] 50 mg 2-04 tablet by [facility]y of tablet 00:00: mouth as needed for Medical Other (1 h Branch prior to sexual activity). chlordiazeP 2020-0 Yes [id number] 25mg Take 1 [facility] OXIDE 25 mg 2-04 capsule by it y of capsule 00:00: mouth (three) Medical times Branch daily as needed for Anxiety. carvediloL 2020-0 Yes [id number] 6.25mg Take 1 [facility] 6.25 mg 2-04 tablet by ity of tablet 00:00: mouth (two) Medical times Branch daily with meals. carvediloL 2020-0 Yes [id number] 12.5mg Take 1 [facility] 12.5 mg 2-04 tablet by ity of tablet 00:00: mouth (two) Medical times Branch daily with meals. chlordiazeP 2020-0 Yes [id number] 25mg Take 1 [facility] OXIDE 25 mg 2-04 capsule by it y of capsule 00:00: mouth (three) Medical times Branch daily as needed for Anxiety. carvediloL 2020-0 Yes [id number] 6.25mg Take 1 [facility] 6.25 mg 2-04 tablet by ity of tablet 00:00: mouth 2 [place] 00 (two) Medical times Branch daily with meals. carvediloL 2020-0 Yes [id number] 12.5mg Take 1 [facility] 12.5 mg 2-04 tablet by ity of tablet 00:00: mouth (two) Medical times Branch daily with meals. chlordiazeP 2020-0 Yes [id number] 25mg Take 1 [facility] OXIDE 25 mg 2-04 capsule by it y of capsule 00:00: mouth (three) Medical times Branch daily as needed for Anxiety. carvediloL 2020-0 Yes [id number] 6.25mg Take 1 [facility] 6.25 mg 2-04 tablet by ity of tablet 00:00: mouth (two) Medical times Branch daily with meals. chlordiazeP 2020-0 Yes [id number] 25mg Take 1 [facility] OXIDE 25 mg 2-04 capsule by it y of capsule 00:00: mouth (three) Medical times Branch daily as needed for Anxiety. carvediloL 2020-0 Yes [id number] 6.25mg Take 1 [facility] 6.25 mg 2-04 tablet by ity of tablet 00:00: mouth (two) Medical times Branch daily with meals. chlordiazeP 2020-0 Yes [id number] 25mg Take 1 [facility] OXIDE 25 mg 2-04 capsule by it y of capsule 00:00: mouth (three) Medical times Branch daily as needed for Anxiety. carvediloL 2020-0 Yes [id number] 6.25mg Take 1 [facility] 6.25 mg 2-04 tablet by ity of tablet 00:00: mouth (two) Medical times Branch daily with meals. chlordiazeP 2020-0 Yes [id number] 25mg Take 1 [facility] OXIDE 25 mg 2-04 capsule by it y of capsule 00:00: mouth (three) Medical times Branch daily as needed for Anxiety. carvediloL 2020-0 Yes [id number] 6.25mg Take 1 [facility] 6.25 mg 2-04 tablet by ity of tablet 00:00: mouth (two) Medical times Branch daily with meals. chlordiazeP 2020-0 Yes [id number] 25mg Take 1 [facility] OXIDE 25 mg 2-04 capsule by it y of capsule 00:00: mouth (three) Medical times Branch daily as needed for Anxiety. carvediloL 2021-0 Yes [id number] 6.25mg Take 1 [facility] 6.25 mg 2-04 tablet by ity of tablet 00:00: mouth 2 (two) Medical times Branch daily with meals. chlordiazeP 0 Yes [id number] 25mg Take 1 [facility] OXIDE 25 mg 2-04 capsule by it y of capsule 00:00: mouth (three) Medical times Branch daily as needed for Anxiety. chlordiazeP 2020-0 Yes [id number] 25mg Take 1 [facility] OXIDE 25 mg 2-04 capsule by it y of capsule 00:00: mouth (three) Medical times Branch daily as needed for Anxiety. chlordiazeP 2020-0 Yes [id number] 25mg Take 1 Univers OXIDE 25 mg 2-04 capsule by it y of capsule 00:00: mouth (three) Medical times Branch daily as needed for Anxiety. chlordiazeP 2020-0 Yes [id number] 25mg Take 1 [facility] OXIDE 25 mg 2-04 capsule by it y of capsule 00:00: mouth (three) Medical times Branch daily as needed for Anxiety. chlordiazeP 0 Yes [id number] 25mg Take 1 [facility] OXIDE 25 mg 2-04 capsule by it y of capsule 00:00: mouth (three) Medical times Branch daily as needed for Anxiety. chlordiazeP 2020-0 Yes [id number] 25mg Take 1 [facility] OXIDE 25 mg 2-04 capsule by it y of capsule 00:00: mouth (three) Medical times Branch daily as needed for Anxiety. chlordiazeP 2020-0 Yes [id number] 25mg Take 1 [facility] OXIDE 25 mg 2-04 capsule by it y of capsule 00:00: mouth (three) Medical times Branch daily as needed for Anxiety. chlordiazeP 2020-0 Yes [id number] 25mg Take 1 [facility] OXIDE 25 mg 2-04 capsule by it y of capsule 00:00: mouth (three) Medical times Branch daily as needed for Anxiety. chlordiazeP 2020-0 Yes [id number] 25mg Take 1 [facility] OXIDE 25 mg 2-04 capsule by it y of capsule 00:00: mouth (three) Medical times Branch daily as needed for Anxiety. chlordiazeP 2020-0 Yes [id number] 25mg Take 1 [facility] OXIDE 25 mg 2-04 capsule by it y of capsule 00:00: mouth 3 (three) Medical times Branch daily as needed for Anxiety. chlordiazeP 2020-0 Yes [id number] 25mg Take 1 [facility] OXIDE 25 mg 2-04 capsule by it y of capsule 00:00: mouth (three) Medical times Branch daily as needed for Anxiety. chlordiazeP 2020-0 Yes [id number] 25mg Take 1 [facility] OXIDE 25 mg 2-04 capsule by it y of capsule 00:00: mouth (three) Medical times Branch daily as needed for Anxiety. chlordiazeP 2020-0 Yes [id number] 25mg Take 1 [facility] OXIDE 25 mg 2-04 capsule by it y of capsule 00:00: mouth (three) Medical times Branch daily as needed for Anxiety. chlordiazeP 2020-0 Yes [id number] 25mg Take 1 [facility] OXIDE 25 mg 2-04 capsule by it y of capsule 00:00: mouth (three) Medical times Branch daily as needed for Anxiety. chlordiazeP 2020-0 Yes [id number] 25mg Take 1 [facility] OXIDE 25 mg 2-04 capsule by it y of capsule 00:00: mouth (three) Medical times Branch daily as needed for Anxiety. chlordiazeP 2020-0 Yes [id number] 25mg Take 1 [facility] OXIDE 25 mg 2-04 capsule by it y of capsule 00:00: mouth (three) Medical times Branch daily as needed for Anxiety. chlordiazeP 2020-0 Yes [id number] 25mg Take 1 [facility] OXIDE 25 mg 2-04 capsule by it y of capsule 00:00: mouth (three) Medical times Branch daily as needed for Anxiety. chlordiazeP 2020-0 Yes [id number] 25mg Take 1 [facility] OXIDE 25 mg 2-04 capsule by it y of capsule 00:00: mouth (three) Medical times Branch daily as needed for Anxiety. chlordiazeP 2020-0 Yes [id number] 25mg Take 1 [facility] OXIDE 25 mg 2-04 capsule by it y of capsule 00:00: mouth (three) Medical times Branch daily as needed for Anxiety. chlordiazeP 2020-0 Yes [id number] 25mg Take 1 [facility] OXIDE 25 mg 2-04 capsule by it y of capsule 00:00: mouth (three) Medical times Branch daily as needed for Anxiety. chlordiazeP 2020-0 Yes [id number] 25mg Take 1 [facility] OXIDE 25 mg 2-04 capsule by it y of capsule 00:00: mouth (three) Medical times Branch daily as needed for Anxiety. chlordiazeP 2020-0 Yes [id number] 25mg Take 1 [facility] OXIDE 25 mg 2-04 capsule by it y of capsule 00:00: mouth (three) Medical times Branch daily as needed for Anxiety. chlordiazeP 2020-0 Yes [id number] 25mg Take 1 [facility] OXIDE 25 mg 2-04 capsule by it y of capsule 00:00: mouth (three) Medical times Branch daily as needed for Anxiety. chlordiazeP 2020-0 Yes [id number] 25mg Take 1 [facility] OXIDE 25 mg 2-04 capsule by it y of capsule 00:00: mouth (three) Medical times Branch daily as needed for Anxiety. chlordiazeP 2020-0 Yes [id number] 25mg Take 1 [facility] OXIDE 25 mg 2-04 capsule by it y of capsule 00:00: mouth (three) Medical times Branch daily as needed for Anxiety. chlordiazeP 2020-0 Yes [id number] 25mg Take 1 [facility] OXIDE 25 mg 2-04 capsule by it y of capsule 00:00: mouth (three) Medical times Branch daily as needed for Anxiety. chlordiazeP 2020-0 Yes [id number] 25mg Take 1 [facility] OXIDE 25 mg 2-04 capsule by it y of capsule 00:00: mouth (three) Medical times Branch daily as needed for Anxiety. chlordiazeP 2020-0 Yes [id number] 25mg Take 1 [facility] OXIDE 25 mg 2-04 capsule by it y of capsule 00:00: mouth (three) Medical times Branch daily as needed for Anxiety. chlordiazeP 2020-0 Yes [id number] 25mg Take 1 [facility] OXIDE 25 mg 2-04 capsule by it y of capsule 00:00: mouth (three) Medical times Branch daily as needed for Anxiety. chlordiazeP 2020-0 Yes [id number] 25mg Take 1 [facility] OXIDE 25 mg 2-04 capsule by it y of capsule 00:00: mouth (three) Medical times Branch daily as needed for Anxiety. carvediloL 2020- No [id number] 6.25mg Take 1 Univers 6.25 mg 11-14-15 tablet by ity of tablet 00:00: 00:00 mouth 2 [place] 00 :00 (two) Medical times Branch daily with meals. carvediloL 2020- No [id number] 6.25mg Take 1 Univers 6.25 mg 11-14-15 tablet by ity of tablet 00:00: 00:00 mouth 2 [place] 00 :00 (two) Medical times Branch daily with meals. carvediloL 2020- No [id number] 12.5mg Take 1 Univers 12.5 mg 11-14- tablet by ity of tablet 00:00: 00:00 mouth 2 [place] 00 :00 (two) Medical times Branch daily with meals. sildenafiL 2020- No [id number] 50mg Take 1 Univers 50 mg 11-14 tablet by ity of tablet 00:00: 00:00 mouth as [place] 00 :00 needed for Medical Other (1 h Branch prior to sexual activity). carvediloL 2019-10 Yes [id number] 6.25mg Take 1 Univers 6.25 mg -06 tablet by ity of tablet 00:00: mouth 2 [place] 00 (two) Medical times Branch daily with meals. carvediloL 2019-10- No [id number] 6.25mg Take 1 Univers 6.25 mg 10-16- tablet by ity of tablet 00:00: 00:00 mouth 2 [place] 00 :00 (two) Medical times Branch daily with meals. foLIC acid Yes 1mg 1 mg, Univer s (FOLATE) 05-14 Oral, ity of tablet 1 mg 14:00: DAILY, [place] 00 First dose Medical on Branch 05/14/20 at 0900, Until Discontinu ed, Routine carvediloL Yes 6.25mg 6.25 mg, U nivers (COREG) 05-14 Oral, BID ity of tablet 6.25 13:45: MEALS, [place] 00 First dose Medical on Wed Branch 05/14/20 at 0845, Until Discontinu ed, Routine oxazepam 2019- No 15mg [Order 1 Univ ers (SERAX) 05-14 Start] ity of capsule 15 05:00: 04:59 Name: [place] mg 00 :00 oxazepam Medical (SERAX) Branch capsule 15 mg Signed Summary: 15 mg, Oral, Q6H, 4 doses, First dose on Wed05/14/20 at 0000, Last dose on Wed05/14/20 at 1800, Routine [Order 1 End] [Order 2 Start] Name: oxazepam (SERAX) capsule 15 mg Signed Summary: 15 mg, Oral, Q8H, 3 doses, First dose on Wed05/15/20 at 0000, Last dose on Wed05/15/20 at 1400, Routine [Order 2 End] [Order 3 Start] Name: oxazepam (SERAX) capsule 15 mg Signed Summary: 15 mg, Oral, Q12H, 2 doses, First dose on Wed05/15/20 at 2200, Last dose on Wed05/16/20 at 0800, Routine [Order 3 End] thiamine 2020-0 Yes 100mg 100 mg, Unive rs (VITAMIN 8- Oral, ity of B1) tablet 01:00: DAILY, [place] 100 mg 00 First dose Medical on Wed Branch 05/13/20 at 2000, Until Discontinu ed, Routine oxazepam 2020-0 Yes 15mg 15 mg, Univers (SERAX) 8 Oral, ity of capsule 15 00:53: Q4HPRN, [place] mg 43 Starting Medical Wed05/13/20 Branch at 1953, Until Discontinu ed, Routine, Only while awake for DBP equal to or greater than 100, HR equal to or greater than 100. hydralAZINE 2020-0 Yes 10mg 10 mg, Univ ers (APRESOLINE 8- Intravenou it y of ) injection 00:50: s, Q6HPRN, [place] 10 mg 00 Starting Medical Wed05/13/20 Branch at 1950, Until Discontinu ed, Routine, Hypertensi on carvediloL 2020-0 Yes [id number] 6.25mg Take 1 Univers 6.25 mg 8-04 tablet by ity of tablet 00:00: mouth 2 [place] 00 (two) Medical times Branch daily with meals. carvediloL 2020-0 Yes [id number] 6.25mg Take 1 Univers 6.25 mg 8-04 tablet by ity of tablet 00:00: mouth 2 [place] 00 (two) Medical times Branch daily with meals. carvediloL 2020-0 Yes [id number] 6.25mg Take 1 Univers 6.25 mg 8-04 tablet by ity of tablet 00:00: mouth 2 [place] 00 (two) Medical times Branch daily with meals. carvediloL 2020-0 2020- No [id number] 6.25mg Take 1 Univers 6.25 mg 8-04 11-06 tablet by ity of tablet 00:00: 00:00 mouth 2 [place] 00 :00 (two) Medical times Branch daily with meals. acetaminoph 2019-0 Yes 650mg 650 mg, Un luis armando en 05-13 Oral, ity of (TYLENOL) 23:36: Q6HPRN, [place] tablet 650 19 Starting Medic al mg 05/13/20 Branch at 1836, Until Discontinu ed, Routine, Pain (scale 1-3) iohexol 2019-0 2019- No 90mL 90 mL, Univers (OMNIPAQUE 05-13 Intravenou it y of 350 BULK-75 21:15: 20:55 s, ONCE, 1 [place] mL) 00 :00 dose, [facility] Medical injection 05/13/20 at Branc h 90 mL 1615, Routine NaCl 0.9% 0 2019- No 1000mL at 999 Uni vers (NS) bolus 05-13 mL/hr, ity of infusion 19:45: 23:02 1,000 mL, Emmanuel as 1,000 mL 00 :00 IV Medical Infusion, Branch ONCE, 1 dose, [facility] 05/13/20 at 1445, STAT atorvastati 2016-10 Yes [id number] 10mg Take 1 Univers n 10 mg 2-28 tablet by ity of tablet 00:00: mouth at [place] [address] bedtime. Medical Branch atorvastati 2016-10 Yes [id number] 10mg Take 1 Univers n 10 mg 2-28 tablet by ity of tablet 00:00: mouth at [place] [address] bedtime. Medical Branch atorvastati 2016-10 Yes [id number] 10mg Take 1 Univers n 10 mg 2-28 tablet by ity of tablet 00:00: mouth at [place] [address] bedtime. Medical Branch atorvastati 2016-10 Yes [id number] 10mg Take 1 Univers n 10 mg 2-28 tablet by ity of tablet 00:00: mouth at [place] 00 [facility]. [facility] Yes [id number] 10mg Take 1 Univers n 10 mg 2-28 tablet by ity of tablet 00:00: mouth at [place] 00 bedtime. Medical Branch [facility] 2016-10 Yes [id number] 10mg Take 1 Univers n 10 mg 2-28 tablet by ity of tablet 00:00: mouth at [place] 00 bedtime. Medical Branch [facility] 2016-10- No [id number] 10mg Take 1 Univers n 10 mg 2-28 -04 tablet by ity of tablet 00:00: 00:00 mouth at [place] 00 :00 bedtime. Medical Branch [facility] 2016-10- No [id number] 10mg Take 1 Univers n 10 mg 2-28 -04 tablet by ity of tablet 00:00: 00:00 mouth at [place] 00 :00 bedtime. [facility] Vital Signs Vital Name Observation Time Observation Value Comments Source Systolic blood 2021-08-13 17:28:00 186 mm[Hg] Univer [facility] Diastolic blood 2021-08-13 17:28:00 110 mm[Hg] Unive rsity [facility] Heart rate 2021-08-13 17:28:00 73 /min [facility] Body temperature 2021-08-13 17:28:00 36.78 Monique [facility] Respiratory rate 2021-08-13 17:28:00 18 /min [facility] Body weight 2021-08-13 17:28:00 114.306 kg [facility] BMI 2021-08-13 17:28:00 33.25 kg/m2 [facility] Oxygen saturation in 2021-08-13 17:28:00 98 /min [facility] Arterial blood by [facility] Pulse oximetry Branch Systolic blood 2021-04-24 19:32:00 110 mm[Hg] Univer sity of [facility] Diastolic blood 2021-04-24 19:32:00 70 mm[Hg] Unive rs[facility] Body weight 2021-04-24 19:32:00 113.399 kg [facility] BMI 2021-04-24 19:32:00 32.98 kg/m2 [facility] [place] [facility] Systolic blood 2021-04-18 20:15:00 127 mm[Hg] Univer sity of [facility] [place] [facility] Diastolic blood 2021-04-18 20:15:00 88 mm[Hg] Unive rsity of [facility] [place] [facility] Heart rate 2021-04-18 20:15:00 73 /min [facility] [place] [facility] Respiratory rate 2021-04-18 20:15:00 25 /min Univ ers[facility] [place] [facility] Oxygen saturation in 2021-04-18 20:15:00 97 /min University of Arterial blood by [place] [employer] robert Pulse oximetry Branch Body temperature 2021-04-18 17:03:00 36.89 Monique [facility] [place] [facility] Body height 2021-04-18 17:03:00 185.4 cm [facility] [place] [facility] Body weight 2021-04-18 17:03:00 112.946 kg [facility] [place] [facility] BMI 2021-04-18 17:03:00 32.85 kg/m2 [facility] [place] [facility] Systolic blood 2020-11-14 20:45:00 130 mm[Hg] Univer sity of [facility] [place] [facility] Diastolic blood 2020-11-14 20:45:00 80 mm[Hg] Unive rsity of [facility] [place] [facility] Body weight 2020-11-14 20:45:00 109.77 kg [facility] [place] [facility] BMI 2020-11-14 20:45:00 31.93 kg/m2 [facility] [place] [facility] Systolic blood 2020-05-14 15:47:00 125 mm[Hg] Univer sity of [facility] [place] [facility] Diastolic blood 2020-05-14 15:47:00 91 mm[Hg] Unive rsity of [facility] [place] [facility] Heart rate 2020-05-14 15:47:00 80 /min [facility] [place] [facility] Body temperature 2020-05-14 15:47:00 37.06 Monique [facility] [place] [facility] Respiratory rate 2020-05-14 15:47:00 20 /min [facility] [place] [facility] Oxygen saturation in 2020-05-14 15:47:00 97 /min University of Arterial blood by [employer] Pulse oximetry Branch Body weight 2020-05-14 09:27:00 102.468 kg [facility] BMI 2020-05-14 09:27:00 29.80 kg/m2 [facility] Body height 2020-05-13 23:41:00 185.4 cm [facility] Procedures Procedure Date / Time Performing Clinician Source Performed XR CHEST 2 VW 2021-08-13 Analilia Moe [facility] [place] 17:56:56 Medical Branch LIPASE 2021-08-13 Analilia Moe [facility] [place] 17:37:00 [facility] TROPONIN I 2021-08-13 Analilai Moe [facility] [place] 17:37:00 [facility] COMP. METABOLIC PANEL 2021-08-13 Analilia Moe [facility] ([id number]) 17:37:00 [facility] CBC WITH DIFF 2021-08-13 Analilia Moe [facility] [place] 17:37:00 [facility] PROTHROMBIN TIME / INR 2021-08-13 Analilia Moe [facility] 17:37:00 [facility] ACTIVATED PARTIAL 2021-08-13 Analilia Moe [facility] THRMPLAS PATEL 17:37:00 [facility] CONSENT/REFUSAL FOR 2021-08-13 Doctor Unassigned, No [facility] DIAGNOSIS AND TREATMENT 17:28:06 [facility] MEDICATION 2021-07-28 Doctor Unassigned, No [facility] CORRESPONDENCE 05:01:[address] [facility] STATEMENT OF 2021-04-24 [facility] Un[facility] PATIENT FINANCIAL 05:01:00 Name [facility] RESPONSIBILITY TROPONIN I 2021-04-18 Janet Montenegro [facility] [place] 19:14:00 Medical Branch XR CHEST 1 VW 2021-04-18 Janet Montenegro [facility] [place] 17:46:39 Medical Branch LIPASE 2021-04-18 Janet Montenegro [facility] [place] 17:19:00 Medical Branch TROPONIN I 2021-04-18 Janet Montenegro [facility] [place] 17:19:00 [facility] HEPATIC FUNCTION PANEL 2021-04-18 Janet Montenegro [facility] ([id number]) (ALB,T.PRO,BILI 17:19:00 Medical Branch T,BU/BC,ALT,AST,ALK PHOS) BASIC METABOLIC PANEL 2021-04-18 Janet Montenegro [facility] (NA, K, CL, CO2, 17:19:00 Medical Branch GLUCOSE, BUN, CREATININE, CA) CBC WITH DIFF 2021-04-18 Janet Montenegro [facility] [place] [facility] [place] 17:19:00 Medical Branch NOTICE OF PRIVACY 2021-04-18 Doctor Unassigned, No [facility] PRACT[facility] 16:53:05 Name Medical Branch CONSENT/REFUSAL FOR 2021-04-18 Doctor Unassigned, No [facility] DIAGNOSIS AND TREATMENT 16:52:52 Name Medical Branch EXTERNAL PROVIDER 2020-05-27 Doctor Unassigned, [facility] RECORDS 05:01:00 Name [facility] ECHO ROUTINE W/DOPPLER 2020[facility]-14 [facility] 13:13:21 Medical Branch BASIC METABOLIC PANEL 2020-05-14 Ubaldo [facility] (NA, K, CL, CO2, 09:10:00 Medical Branch GLUCOSE, BUN, CREATININE, CA) CBC WITH DIFF 2020-05-14 [facility] [place] 09:10:00 Medical [place] VITAMIN D, 25-OH 2020-05-14 Vonnie [facility] [place] 04:11:00 [facility] TROPONIN I 2020-05-[facility] [place] 04:[facility] Medical Branch TROPONIN I 2020-05-[facility] [place] 23:02:00 Medical Branch COVID-19 (ID NOW RAPID 2020-05-13 [facility] TESTING) 21:44:[address] CHEST PULMONARY 2020-05-13 [facility] 20:59:32 [facility]INALYSIS 2020-05-13 [facility] [place] 20:[facility] Medical Branch XR CHEST 1 VW 2020-05-13 [facility] [place] 20:24:10 Medical Branch TROPONIN I 2020-05-13 [facility] [place] 19:41:00 Medical Branch COMP. METABOLIC PANEL 2020-05-13 [facility] ([id number]) 19:41:00 [facility] LIPID PANEL 2020-05-13 [facility] ([id number])(TOTAL 19:41:00 Medical [place] CHOLESTEROL, TRIGLYCERIDES, HDL) CBC WITH DIFF 2020-05-13 Singer [facility] 19:41:00 [facility] GLYCOSYLATED HEMOGLOBIN 2020-05-13 [facility] (A1C) 19:41:00 [facility] D-DIMER 2020-05-13 Singer [facility] 19:41:00 [facility] EKG-12 LEAD [facility] 19:40:19 [facility] EKG-12 LEAD 2020-05-13 [facility] 19:33:25 [facility] NOTICE OF PRIVACY 2020-05-13 Doctor Unassigned, No [facility] 19:25:17 Name [facility] Encounters Start End Encounter Admission Attending Care Care Encounter Source Date/Time Date/Time Type Type Clinicians Facility Department ID 2021-08-11 Emergency [facility] [id number] Univers 07:07:02 ity [facility] 2022-01-15 2022-01-15 Outpatient Latosha NUNEZ, [facility] [id number] Univers 13:00:00 13:00:00 RITA [id number] ity [facility] 2022-01-10 2022-01-10 Refill Doctor [facility] 1.2.840.114 [id number] Univers 00:00:00 00:00:00 Unassigned, HEALTH 350.1.13.10 ity of [place] [facility] [id number] Emmanuel as PROFESSIO [phone] Dc talat BROWNING [address] [place] [address] OFFICE BUILDING ONE 2022-01-08 2022-01-08 Refill Emely, [facility] 1.2.840.114 [id number] Univers 00:00:00 00:00:00 Katherine A HEALTH [id number] i [facility] [id number] Emmanuel as TEJAS?BLEA [phone] Dc dical KNEY [address] [place] [address] MEDICAL OFFICE BUILDING 2021-12-312021-12-31 Refill Nunez, [facility] 1.2.840.114 [id number] Univers 00:00:00 00:00:00 Rita HEALTH 350.1.13.10 it y of [place] [id number] Emmanuel as PROFESSIO [phone] [address] [facility] 2021-12-29 2021-12-29 Refill Doctor [facility] 1.2.840.114 [id number] Univers 00:00:00 00:00:00 Unassigned, HEALTH 350.1.13.10 ity of [place] [id number] Emmanuel as PROFESSIO [phone] [address] [facility] 2021-12-24 2021-12-24 Refill Doctor [facility] 1.2.840.114 [id number] Univers 00:00:00 00:00:00 Unassigned, HEALTH 350.1.13.10 ity of [place] 4.2.7.2.686 Emmanuel as PROFESSIO [phone] Dc dictn NAL [address] [place] [address] [facility] 2021-12-14 2021-12-14 Refill Doctor [facility] 1.2.840.114 [id number] Univers 00:00:00 00:00:00 Unassigned, HEALTH 350.1.13.10 ity of [place] 4.2.7.2.686 Emmanuel as PROFESSIO [phone] [address] [facility] 2021-12-14 2021-12-14 Refill Doctor [facility] 1.2.840.114 [id number] Univers 00:00:00 00:00:00 Unassigned, HEALTH 350.1.13.10 ity of [place] 4.2.7.2.686 Emmanuel as PROFESSIO [id number] [address] [facility] 2021-12-12 2021-12-12 Outpatient Latosha HUMMEL [facility] [id number] Univers 16:00:00 16:28:37 KATHERINE [facility] 2021-12-12 2021-12-12 Outpatient Latosha HUMMEL [facility] [id number] -[id number] Univers 16:00:00 16:00:00 KATHERINE [id number] [facility] 2021-12-12 2021-12-12 Refill Doctor [facility] 1.2.840.114 [id number] Univers 00:00:00 00:00:00 Unassigned, HEALTH 350.1.13.10 ity of [place] 4.2.7.2.686 Emmanuel as PROFESSIO [phone] Dc dical NAL [address] [facility] 2021-12-11 2021-12-11 Outpatient R ERICKA, [facility] [id number] -[id number] Univers 15:30:00 15:30:00 THONG [id number] ity [facility] 2021-12-02 2021-12-02 Refill Doctor [facility] 1.2.840.114 [id number] Univers 00:00:00 00:00:00 Unassigned, HEALTH 350.1.13.10 ity of [place] 4.2.7.2.686 Emmanuel as PROFESSIO [phone] Dc dical NAL [address] [facility] 2021-11-22 2021-11-22 Refill Doctor [facility] 1.2.840.114 [id number] Univers 00:00:00 00:00:00 Unassigned, HEALTH 350.1.13.10 ity of [place] 4.2.7.2.686 Emmanuel as PROFESSIO [phone] Dc dical NAL [address] [facility] 2021-11-22 2021-11-22 Refill Doctor [facility] 1.2.840.114 [id number] Univers 00:00:00 00:00:00 Unassigned, HEALTH 350.1.13.10 ity of [place] 4.2.7.2.686 Emmanuel as PROFESSIO [phone] Dc dical NAL [address] [facility] 2021-11-22 2021-11-22 Refill Enrique [facility] 1.2.840.114 [id number] Univers 00:00:00 00:00:00 Rita HEALTH 350.1.13.10 it y of [place] 4.2.7.2.686 Emmanuel as PROFESSIO [phone] Dc dical NAL [address] [place] [address] OFFICE BUILDING ONE 2021-11-20 2021-11-20 Refill Nunez [facility] 1.2.840.114 [id number] Univers 00:00:00 00:00:00 Rita HEALTH 350.1.13.10 it y of [place] 4.2.7.2.686 Emmanuel as PROFESSIO [phone] Dc dical NAL [address] [place] [address] OFFICE BUILDING ONE 2021-11-10 2021-11-10 Refill Enrique, [facility] 1.2.840.114 [id number] Univers 00:00:00 00:00:00 Rita HEALTH 350.1.13.10 it y of [place] 4.2.7.2.686 Emmanuel as PROFESSIO [id number] Dc dical NAL [address] [place] [address] [facility] 2021-11-07 2021-11-07 Refill Doctor [facility] 1.2.840.114 [id number] Univers 00:00:00 00:00:00 Unassigned, HEALTH 350.1.13.10 ity of [place] 4.2.7.2.686 Emmanuel as PROFESSIO [phone] Dc dical NAL [address] [place] [address] OFFICE BUILDING ONE 2021-10-26 2021-10-26 Refill Enrique [facility] 1.2.840.114 [id number] Univers 00:00:00 00:00:00 Rita HEALTH 350.1.13.10 it y of [place] 4.2.7.2.686 Emmanuel as PROFESSIO [phone] Dc dical NAL [address] [place] [address] OFFICE BUILDING ONE 2021-10-17 2021-10-17 Refill Doctor [facility] 1.2.840.114 [id number] Univers 00:00:00 00:00:00 Unassigned, HEALTH 350.1.13.10 ity of [place] 4.2.7.2.686 Emmanuel as PROFESSIO [phone] Dc dical NAL [address] [place] [address] OFFICE BUILDING ONE 2021-10-05 2021-10-05 Refill Enrique, [facility] 1.2.840.114 [id number] Univers 00:00:00 00:00:00 Rita HEALTH 350.1.13.10 it y of [place] 4.2.7.2.686 Emmanuel as TJEAS?BLEA [phone] Dc talat MALLOY [address] [place] [address] MEDICAL OFFICE BUILDING 2021-09-22 2021-09-22 Refill Doctor [facility] 1.2.840.114 [id number] Univers 00:00:00 00:00:00 Unassigned, HEALTH 350.1.13.10 ity of [place] 4.2.7.2.686 Emmanuel as TEJAS?BLEA [phone] Dc talat MALLOY [address] [place] [address] MEDICAL OFFICE BUILDING 2021-09-18 2021-09-18 Refill Nunez, [facility] 1.2.840.114 [id number] Univers 00:00:00 00:00:00 Rita HEALTH 350.1.13.10 it y of [place] 4.2.7.2.686 Emmanuel as TEJAS?BLEA [id number] Dc talat SALGU[address] [facility] [facility] 2021-09-10 2021-09-10 Refill Enrique, [facility] 1.2.840.114 [id number] Univers 00:00:00 00:00:00 Logan HEALTH 350.1.13.10 it y of [place] 4.2.7.2.686 Emmanuel as TEJAS?BLEA [phone] Dc talat MALLOY [address] [place] [address] MEDICAL OFFICE BUILDING 2021-09-02 2021-09-02 Refill Enrique [facility] 1.2.840.114 [id number] Univers 00:00:00 00:00:00 Rita HEALTH 350.1.13.10 it y of [place] 4.2.7.2.686 Emmanuel as TEJAS?BLEA [phone] Dc talat MALLOY [address] [place] [address] MEDICAL OFFICE BUILDING 2021-08-20 2021-08-20 Refill Enrique, [facility] 1.2.840.114 [id number] Univers 00:00:00 00:00:00 Rita HEALTH 350.1.13.10 it y of [place] 4.2.7.2.686 Emmanuel as TEJAS?BLEA [phone] Dc talat SALGU[address] MEDICAL OFFICE BUILDING 2021-08-19 2021-08-19 Refill Doctor [facility] 1.2.840.114 [id number] Univers 00:00:00 00:00:00 Unassigned, HEALTH 350.1.13.10 ity of [place] 4.2.7.2.686 Emmanuel as PROFESSIO [phone] [address] ONE 2021-08-18 2021-08-18 Patient Enrique [facility] 1.2.840.114 [id number] Univers 00:00:00 00:00:00 Secure Msg Rita HEALTH 350.1.13.10 ity of [place] 4.2.7.2.686 Emmanuel as TEJAS?BLEA [phone] [address] 2021-08-13 2021-08-[address] [facility] 1.2.144.789 [id number] Univers 12:31:00 14:24:00 Analilia S [place] 350.1.13.10 i ty of [place]7.2.[place] [phone] [facility] [address] 2021-08-13 2021-08-13 Emergency X [facility] ERT [id number] Univers 12:31:00 14:24:00 ANALILIA ity of [facility] 2021-08-08 2021-08-08 [facility] 1.2.840.114 [id number] Univers 00:00:00 00:00:00 Rita HEALTH 350.1.13.10 it y of [place] 4.2.7.2.686 Emmanuel as PROFESSIO [phone] [address] 2021-07-28 2021-07-28 Orders Doctor JANNETH 1.2.840.114 [id number] Univers 00:00:00 00:00:00 Only Unassigned, ULICES 350.1.13.10 ity of [place] [facility] 4.2.7.2.686 Emmanuel as [phone] [facility] [address] 2021-07-27 2021-07-27 [facility]isa [facility] 1.2.840.114 [id number] Univers 00:00:00 00:00:00 Rita Health 350.1.13.10 it y of [place] 4.2.7.2.686 Emmanuel as Professio [phone] [address] One 2021-06-20 2021-06-20 [facility] 1.2.840.114 [id number] Univers 00:00:00 00:00:00 Rita Health 350.1.13.10 it y of [place] 4.2.7.2.686 Emmanuel as Professio [phone] [address] One 2021-06-07 2021-06-07 [facility] 1.2.840.114 [id number] Univers 00:00:00 00:00:00 [facility] 350.1.13.10 it y of [place] 4.2.7.2.686 Emmanuel as Professio [phone] [address] One 2021-05-26 2021-05-26 Outpatient Latosha NUNEZ [facility] [id number] -[id number] Univers 15:00:00 15:00:00 RITA [id number] [facility] 2021-05-26 2021-05-26 [facility] [id number] Univers 15:00:00 15:00:00 [facility] 2021-05-09 2021-05-09 [facility] 1.2.840.114 [id number] Univers 00:00:00 00:00:00 [facility] 350.1.13.10 it y of [place] 4.2.7.2.686 Emmanuel as Professio [phone] [address] One 2021-04-24 2021-04-24 [facility] 1.2.840.114 [id number] Univers 14:16:08 14:31:08 Visit Rita Health 350.1.13.10 it y of [place] 4.2.7.2.686 Emmanuel as Professio [phone] [address] One 2021-04-24 2021-04-24 [facility] [id number] -[id number] Univers 14:15:00 14:15:00 RITA [id number] ity of [facility] 2021-04-24 2021-04-24 Outpatient Latosha NUNEZ [facility] [id number] [facility] 14:15:00 14:15:00 RITA ity of [facility] 2021-04-24 2021-04-24 Orders Doctor JANNETH 1.2.840.114 [id number] Univers 00:00:00 00:00:00 Only Unassigned, ULICES 350.1.13.10 ity of [place] [facility] 4.2.7.2.686 Emmanuel as [phone] [facility] [address] 2021-04-18 2021-04-18 Emergency [facility] 1.2.754.953 [id number] Univers 12:04:00 15:40:00 Janet Rodriguez 350.1.13.10 ity of [place] 4.2.7.2.686 [facility] [phone] [facility] [address] 2021-04-18 2021-04-18 Orders Doctor JANNETH 1.2.840.114 [id number] Univers 00:00:00 00:00:00 Only Unassigned, ULICES 350.1.13.10 ity of [place] [facility]PITAL 4.2.7.2.686 Emmanuel as [phone] [address] 2021-04-09 2021-04-09 [facility] 1.2.840.114 [id number] Univers 00:00:00 00:00:00 Rita Health 350.1.13.10 it y of [place] 4.2.7.2.686 Emmanuel as Professio [phone] Dc dical nal [address] One 2021-03-18 2021-03-18 [facility] 1.2.840.114 [id number] Univers 00:00:00 00:00:00 Rita Health 350.1.13.10 it y of [place] 4.2.7.2.686 Emmanuel as Professio [phone] Dc dictn nal [address] One 2021-02-01 2021-02-01 [facility] 1.2.840.114 [id number] Univers 00:00:00 00:00:00 [facility] 350.1.13.10 it y of [place] 4.2.7.2.686 Emmanuel as Professio [phone] Dc dical nal [address] Office [facility] One 2020-12-24 2020-12-24 Patient Parth [facility] 1.2.840.114 [id number] Univers 00:00:00 00:00:00 Outreach Bill PRIMARY 350.1.13.10 i ty of [facility] 4.2.7.2.[place] [phone] [address] 2020-11-14 2020-11-14 Outpatient Latosha NUNEZ [facility] [id number] -[id number] Univers 15:00:00 15:00:00 RITA 122117 [facility] 2020-11-14 2020-11-14 Outpatient Latosha NUNEZ [facility] [id number] Univers 15:00:00 15:00:00 RITA [facility] 2020-11-14 2020-11-14 [facility] 1.2.840.114 [id number] Univers 14:43:05 14:58:05 Visit [facility] 350.1.13.10 it y of [place] 4.2.7.2.686 Emmanuel as Professio [phone] Dc dictn nal [address] [place] [address] Office [facility] One 2020-11-14 2020-11-14 Refill Doctor [facility] 1.2.840.114 [id number] Univers 00:00:00 00:00:00 Unassigned, Health 350.1.13.10 ity of [place] 4.2.7.2.686 Emmanuel as Professio [phone] Dc dical nal [address] One 2020-11-14 2020-11-14 Telephone Enrique [facility] 1.2.806.063 [id number] Univers 00:00:00 00:00:00 [facility] 350.1.13.10 it y of [place] 4.2.7.2.686 Emmanuel as Professio [phone] Dc dical nal [address] One 2020-08-15 2020-08-15 [facility] 1.2.840.114 [id number] Univers 00:00:00 00:00:00 Rita [facility] 350.1.13.10 it y of [place] 4.2.7.2.686 Emmanuel as Professio [phone] [address] Office [facility] One 2020-05-27 2020-05-27 Orders Doctor JANNETH 1.2.840.114 [id number] Univers 00:00:00 00:00:00 Only Unassigned, ULICES 350.1.13.10 [facility] 4.2.7.2.686 Emmanuel as [phone] [address] 2020-05-21 2020-05-21 Outpatient Latosha NUNEZ [facility] [id number] -20 Univers 10:00:00 10:00:00 RITA [id number] ity [facility] 2020-05-21 2020-05-21 Outpatient Latosha NUNEZ [facility] [id number] Univers 10:00:00 10:00:00 [facility] 2020-05-21 [facility]ici [facility] 1.2.840.114 [id number] Univers 07:50:19 08:05:19 ne Visit Rita [place] 350.1.13.10 ity of [place].7.2.[place] Profess[place] [phone] [address] 2020-05-13 2020-05-14 Emergency Guanakito Garcia [facility] 1.2.840. 114 [id number] Univers 14:31:00 13:14:00 [place] 350.1.13.10 ity of [place].2.[place] [phone] [address] 2020-05-14 2020-05-14 [facility] 1.2.879.005 [id number] Univers 00:00:00 00:00:00 Rita Health 350.1.13.10 it y of [place] 4.2.7.2.686 Emmanuel as Professio [phone] Me dical nal [address] One 2020-05-13 2020-05-13 Outpatient Mitch [facility] [id number] Univers 14:31:00 14:31:00 TRA salomon of [facility] Results Test Description Test Time Test Comments Results Result Comments Source CBC W/AUTO DIFF WITH PLATELETS 2022-01-10 09:03:53 Test Item Value Reference Range Interpretation Comme nts WBC (test code = 1001) 4.4 K/UL 3.5-11.0 RBC (test code = 1002) 4.66 M/UL 4.50-6.10 HEMOGLOBIN (test code = 12.7 G/DL 13.5-17.0 L 1003) HEMATOCRIT (test code = 39.3 % 40.0-51.0 L 1004) MCV (test code = 1005) 84.3 fL 80.0-99.0 MCH (test code = 1006) 27.3 PG 25.0-33.0 MCHC (test code = 1007) 32.3 G/DL 31.0-36.0 RDW (test code = 1038) 14.4 % 11.5-15.0 NEUTROPHILS (test code = 53.3 % 1008) LYMPHOCYTES (test code = 30.6 % 1010) MONOCYTES (test code = 1011) 13.1 % EOSINOPHILS (test code = 2.1 % 1012) BASOPHILS (test code = 1013) 0.7 % IMMATURE GRANULOCYTES (test 0.2 % code = 1036) NUCLEATED RBCS (test code = 0.0 /100 WBC'S See_Comment [Automated message] The 1065) system which ge nerated this result transmit guille reference range : 0.0. The reference range was not used to interpr et this result as anastasia l/abnormal. PLATELET COUNT (test code = 199 K/UL 187-473 3655) ABSOLUTE NEUTROPHILS (test 2.32 K/UL 1.50-7.50 code = 1066) ABSOLUTE LYMPHOCYTES (test 1.33 K/UL 1.00-4.00 code = 1067) ABSOLUTE MONOCYTES (test 0.57 K/UL 0.20-1.00 code = 1068) ABSOLUTE EOSINOPHILS (test 0.09 K/UL 0.00-0.50 code = 1040) ABSOLUTE BASOPHILS (test 0.03 K/UL 0.00-0.20 code = 1069) ABS IMMATURE GRANULOCYTES 0.01 K/UL 0.00-0.10 (test code = 1020) ABS NUCLEATED RBCS (test 0.00 K/UL 0.00-0.11 code = 85093) COMPREHENSIVE METABOLIC [id number] 04:40:45 Test Item Value Reference Range Interpretation Comments GLUCOSE (test code = 80 MG/DL 70-99 2216) BUN (test code = 9 MG/DL 6-20 2207) CREATININE (test 0.76 MG/DL 0.80-1.40 L code = 2214) eGFR (2020 CKD-EPI) 107 >60 (test code = 53777) ML/MIN/1.73 CALC BUN/CREAT (test 12 RATIO 6-28 code = 2235) SODIUM (test code = 137 MEQ/L 013-392 7687) POTASSIUM (test code 4.2 MEQ/L 3.5-5.4 = 2227) CHLORIDE (test code 97 MEQ/L 95-107 = 2214) CARBON DIOXIDE (test 25 MEQ/L 19-31 code = 220) CALCIUM (test code = 9.8 MG/DL 8.5-10.5 2208) PROTEIN, TOTAL (test 7.4 G/DL 6.1-8.3 code = 222) ALBUMIN (test code = 4.7 G/DL 3.5-5.2 2200) CALC GLOBULIN (test 2.7 G/DL 1.9-3.7 code = 2240) CALC A/G RATIO (test 1.7 RATIO 1.0-2.6 code = 2234) BILIRUBIN, TOTAL 0.6 MG/DL See_Comment [Automated message] (test code = 220) The syste m which generated this result transmit guille reference range : <=1.2. The refe rence range was not u sed to interpret th is result as normal/abnormal . ALKALINE PHOSPHATASE 55 U/L 40-121 (test code = 2204) AST (test code = 138 U/L 9-50 H 2217) ALT (test code = 100 U/L 5-50 H 2218) LIPID [id number] 04:40:45 Test Item Value Reference Range Interpretation Comments CHOLESTEROL (test 241 MG/DL <200 H code = 2210) TRIGLYCERIDES (test 141 MG/DL <150 code = 2232) HDL CHOLESTEROL (test 65 MG/DL >39 code = 2220) CALC LDL CHOL (test 149 MG/DL <100 H NOTE: C ALCULATED LDL code = 2237) IS BASED ON SUE-KU METHOD WHICHINCLUDES ADJUSTABLE TRIGLYCERIDE:VL DL CHOLESTEROL RAT IO.THIS FACTOR VARIES B Y MEASURED TRIGLY CERIDE AND NON-HDLCHOL ESTEROL CONCENTRATIONS WITH INCREASED CALCU LATED LDL SEENIN HIGH ER TRIGLYCERIDE OR LOWER NON-HDL SPECIME NS. FOR MOREINFORMATION , SEE CLIENT ANNOUNCE MENT AT [email or web address] RATIO LDL/HDL 2.29 RATIO <3.55 UN LESS (test code = 2238) OTHERWISE INDICATED, ALL TESTING PER FORMED [facility], [place]. [address] [place] [address] LABORATORY DIRE CTOR: CARMELO GUTIERREZ M.D. CLIA NUMBER [id number] CAP ACCREDITATION N O. [id number] CBC WITH [id number] 18:33:56 Test Item Value Reference Range Interpretation Comments WBC (test code = See_Comment L [Automated 9490-2) message] The sy stem which generated this result transmitted reference range : 4.20 - 10.70 10*3/?L. The reference range was not used to interpret this result as normal/abnormal . RBC (test code = See_Comment [Automated 759-8) message] The sy stem which generated this result transmitted reference range : 4.26 - 5.52 10*6/?L. The reference range was not used to interpret this result as normal/abnormal . HGB (test code = 14.1 g/dL 12.2-16.4 718-7) HCT (test code = 42.7 % 38.4-49.3 4544-3) MCV (test code = 85.7 fL 81.7-95.6 787-2) MCH (test code = 28.3 pg 26.1-32.7 785-6) MCHC (test code = 33.0 g/dL 31.2-35.0 786-4) RDW-SD (test code = 47.7 fL 38.5-51.6 13773-3) RDW-CV (test code = 15.1 % 12.1-15.4 788-0) PLT (test code = See_Comment [Automated 777-3) message] The sy stem which generated this result transmitted reference range : 150 - 328 10*3/ ?L. The reference r chandler was not used to interpret this result as normal/abnormal . MPV (test code = 9.4 fL 9.8-13.0 L 54481-5) NRBC/100 WBC (test See_Comment [Automat ed code = 4212905813) message] The system which generated this result transmitted reference range : 0.0 - 10.0 /100 WBCs. The refer ence range was not u sed to interpret th is result as normal/abnormal . NRBC x10^3 (test code <0.01 See_Comment [Auto mated = 9250395447) message] The s ystem which generated this result transmitted reference range : 10*3/?L. The reference range was not used to interpret this result as normal/abnormal . GRAN MAT (NEUT) % 51.9 % (test code = 770-8) IMM GRAN % (test code 0.30 % = 9774383713) LYMPH % (test code = 30.4 % 736-9) MONO % (test code = 15.0 % 5905-5) EOS % (test code = 1.5 % 713-8) BASO % (test code = 0.9 % 706-2) GRAN MAT x10^3(ANC) 1.69 10*3/uL 1.99-6.95 L (test code = 0689314260) IMM GRAN x10^3 (test <0.03 0.00-0.06 code = 9554062914) LYMPH x10^3 (test code 0.99 10*3/uL 1.09-3.23 L = 731-0) MONO x10^3 (test code 0.49 10*3/uL 0.36-1.02 = 742-7) EOS x10^3 (test code = 0.05 10*3/uL 0.06-0.53 L 711-2) BASO x10^3 (test code 0.03 10*3/uL 0.01-0.09 = 704-7) LG GRAN LYMPHS (test Rare Rare code = 8083884103) Lab Interpretation Abnormal (test code = 75519-7) [facility] [id number] 18:12:36 Test Item Value Reference Interpretation Comments Range TROPONIN I (test 0.003 ng/mL See_Comment [Automated code = 0240936942) message] The system which generated this result transmitted reference range : <=0.034. The reference range was not used to interpret this result as normal/abnormal . NEYMAR (test code = Reference (Normal) NEYMAR) Range (defined by the 99th percentile reference limit): <= 0.034 ng/mL Note: Cardiac troponin begins to rise 3-4 hours after the onset of ischemia. Repeat in 4-6 hours if the sample was drawn within 3-4 hours of the onset of the symptom and found normal. Diagnosis of myocardial injury is made with acute changes in cTn concentrations with at least one serial sample above the 99th percentile upper reference limit (URL), taken together with the patient's clinical presentation. Biotin has been reported to cause a negative bias, interpret results relative to patient's use of biotin. Lab Interpretation Normal (test code = 72165-5) [facility] 18:08:16 Test Item Value Reference Range Interpretation Comments APTT Patient (test See_Comment [Automat ed code = 3173-2) message] The system which generated this result transmitted reference range : 23 - 38 Seconds . The reference range was not used to interpr et this result as normal/abnormal . NEYMAR (test code = NEYMAR) The [facility] patient population mean normal value for aPTT is 30 seconds. Lab Interpretation Normal (test code = 98646-7) [facility] / [id number] 18:05:57 Test Item Value Reference Range Interpretation Comments PROTIME PATIENT (test See_Comment [Auto mated message] code = 5964-2) The system wh ich generated this result transmitted ref erence range: 12.0 - 1 4.7 Seconds. The re ference range was not u sed to interpret this result as normal/abnor mal. INR (test code = 6301-6) Nor mal INR <1.1; Warfarin Therap eutic range 2.0 to 3. 0 or 2.5 to 3.5, dep ending upon the indica tions. Lab Interpretation (test Normal code = 86845-1) [facility]. METABOLIC PANEL (68159)2021-08-13 18:01:35 Test Item Value Reference Range Interpretation Comments NA (test code = 136 mmol/L 135-145 4807548574) K (test code = 4.0 mmol/L 3.5-5.0 4619075315) CL (test code = 101 mmol/L 98-108 2314895328) CO2 TOTAL (test code = 27 mmol/L 23-31 0428909048) AGAP (test code = 2-16 2910340913) BUN (test code = 10 mg/dL 7-23 7814897786) GLUCOSE (test code = 93 mg/dL 70-110 9382318001) CREATININE (test code = 0.75 mg/dL 0.60-1.25 9386473871) TOTAL BILI (test code = 0.9 mg/dL 0.1-1.9 2097273277) CALCIUM (test code = 9.7 mg/dL 8.6-10.6 5514138104) T PROTEIN (test code = 7.8 g/dL 6.3-8.2 4930360206) ALBUMIN (test code = 4.6 g/dL 3.5-5.0 6954910350) ALK PHOS (test code = 48 U/L 34-122 8443702033) ALTv (test code = 105 U/L 5-50 H 1742-6) AST(SGOT) (test code = 172 U/L 13-40 H 4266875782) eGFR (test code = mL/min/1.73m2 0707818536) NEYMAR (test code = NEYMAR) Association of Glomerular Filtration Rate (GFR) and Staging of Kidney Disease* + --+ --+ ------+| GFR (mL/min/1.73 m2) ?| With Kidney Damage ?| ?Without Kidney Damage+ --------+ --------+ +| ?>90 ?| ?Stage one ?| ? Normal ?+ ---+ ---+ -------+| ?60-89 ?| ?Stage two ?| ? Decreased GFR ? + --+ --+ ------+| ?30-59 ?| ?Stage three ?| ? Stage three ? + --+ --+ ------+| ?15-29 ?| ?Stage four ? | ? Stage four ?+ ---+ ---+ -------+| ?<15 (or dialysis) ? ?| ?Stage five ? | ? Stage five ?+ ---+ ---+ -------+ *Each stage assumes the associated GFR level has been in effect for at least three months. ?Stages 1 to 5, with or without kidney disease, indicate chronic kidney disease. Notes: Determination of stages one and two (with eGFR >59mL/min/1.73 m2) requires estimation of kidney damage for at least three months as defined by structural or functional abnormalities of the kidney, manifested by either:Pathological abnormalities or Markers of kidney damage (including abnormalities in the composition of the blood or urine or abnormalities in imaging tests). Lab Interpretation Abnormal (test code = 93214-4) [facility] CenterLIP[facility], [id number] 18:00:54 Test Item Value Reference Range Interpretation Comments LIPASE (test code = 5062107217) 200 U/L 0-220 Lab Interpretation (test code = Normal 79941-2) [facility]TR[facility] [id number] 19:48:30 Test Item Value Reference Interpretation Comments Range TROPONIN I (test 0.009 ng/mL See_Comment [Automated code = 2376786700) message] The system which generated this result transmitted reference range : <=0.034. The reference range was not used to interpret this result as normal/abnormal . NEYMAR (test code = Reference (Normal) NEYMAR) Range (defined by the 99th percentile reference limit): <= 0.034 ng/mL Note: Cardiac troponin begins to rise 3-4 hours after the onset of ischemia. Repeat in 4-6 hours if the sample was drawn within 3-4 hours of the onset of the symptom and found normal. Diagnosis of myocardial injury is made with acute changes in cTn concentrations with at least one serial sample above the 99th percentile upper reference limit (URL), taken together with the patient's clinical presentation. Biotin has been reported to cause a negative bias, interpret results relative to patient's use of biotin. Lab Interpretation Normal (test code = 07872-0) [facility] 1 [id number] 18:17:45 No acute intrathoracic abnormality.PROCEDURE: XR CHEST 1 VW CLINICAL INDICATION: chest pain COMPARISON: 05/13/2020 FINDINGS: The lungs are clear. The right hemidiaphragm is elevated, stable.No pleural effusion or pneumothorax is seen. The cardiomediastinal silhouette is normal. No acute bony abnormality. [facility], Radiant Results Inft User - 04/18/2021 1:18 PM CDT PROCEDURE: XR CHEST 1 VWCLINICAL INDICATION: chest pain COMPARISON: 05/13/2020FINDINGS:The lungs are clear. The right hemidiaphragm is elevated, stable.No pleural effusion or pneumothorax is seen. The cardiomediastinal silhouette is normal. No acute bony abnormality.IMPRESSIONNo acute intrathoracic abnormality.[facility] CenterTroponin [id number] 18:07:55 Test Item Value Reference Interpretation Comments Range TROPONIN I (test 0.002 ng/mL See_Comment [Automated code = 4880110148) message] The system which generated this result transmitted reference range : <=0.034. The reference range was not used to interpret this result as normal/abnormal . NEYMAR (test code = Reference (Normal) NEYMAR) Range (defined by the 99th percentile reference limit): <= 0.034 ng/mL Note: Cardiac troponin begins to rise 3-4 hours after the onset of ischemia. Repeat in 4-6 hours if the sample was drawn within 3-4 hours of the onset of the symptom and found normal. Diagnosis of myocardial injury is made with acute changes in cTn concentrations with at least one serial sample above the 99th percentile upper reference limit (URL), taken together with the patient's clinical presentation. Biotin has been reported to cause a negative bias, interpret results relative to patient's use of biotin. Lab Interpretation Normal (test code = 19286-1) [facility] Center[facility] Metabolic Panel (NA, K, CL, CO2, GLUCOSE, BUN, CREATININE, CA)2021-04-18 17:57:12 Test Item Value Reference Range Interpretation Comments NA (test code = 136 mmol/L 135-145 5619858933) K (test code = 4.1 mmol/L 3.5-5.0 4524541646) CL (test code = 103 mmol/L 98-108 2267023811) CO2 TOTAL (test code 26 mmol/L 23-31 = 3259985980) AGAP (test code = 2-16 2572978340) BUN (test code = 10 mg/dL 7-23 2517009487) GLUCOSE (test code = 90 mg/dL 70-110 5920146474) CREATININE (test code 0.79 mg/dL 0.60-1.25 = 3615035010) CALCIUM (test code = 9.4 mg/dL 8.6-10.6 1100414189) eGFR (test code = mL/min/1.73m2 8237995799) NEYMAR (test code = NEYMAR) Association of Glomerular Filtration Rate (GFR) and Staging of Kidney Disease* + + +- +| GFR (mL/min/1.73 m2) ?| With Kidney Damage ?| ?Without Kidney Damage+ ------+ ----+ ------+| ?>90 ?| ?Stage one ?| ? Normal ?+ -+ + -+| ?60-89 ?| ?Stage two ?| ? Decreased GFR ? + + +- +| ?30-59 ?| ?Stage three ?| ? Stage three ? + + +- +| ?15-29 ?| ?Stage four ? | ? Stage four ?+ -+ + -+| ?<15 (or dialysis) ? ?| ?Stage five ? | ? Stage five ?+ -+ + -+ *Each stage assumes the associated GFR level has been in effect for at least three months. ?Stages 1 to 5, with or without kidney disease, indicate chronic kidney disease. Notes: Determination of stages one and two (with eGFR >59mL/min/1.73 m2) requires estimation of kidney damage for at least three months as defined by structural or functional abnormalities of the kidney, manifested by either:Pathological abnormalities or Markers of kidney damage (including abnormalities in the composition of the blood or urine or abnormalities in imaging tests). [facility] Center[facility] Function Panel (ALB, T.PRO, BILI T, BU/BC, ALT, AST, ALK PHOS)2021-04-18 17:57:12 Test Item Value Reference Range Interpretation Comments TOTAL BILI (test code = 3432504739) 0.8 mg/dL 0.1-1.1 BILI UNCON (test code = 3564353722) 0.5 mg/dL 0.1-1.1 BILI CONJ (test code = 3473599639) 0.0 mg/dL 0.0-0.3 T PROTEIN (test code = 5483046086) 8.2 g/dL 6.3-8.2 ALBUMIN (test code = 8859431153) 4.6 g/dL 3.5-5.0 ALK PHOS (test code = 8719856089) 64 U/L 34-122 ALTv (test code = 1742-6) 171 U/L 5-50 H AST(SGOT) (test code = 8724327529) 231 U/L 13-40 H Lab Interpretation (test code = Abnormal 36103-6) [facility] CenterLip[facility] [id number] 17:56:52 Test Item Value Reference Range Interpretation Comments LIPASE (test code = [id number]) 232 U/L 0-220 H Lab Interpretation (test code = Abnormal 14290-5) [facility] [id number] 17:46:29 Test Item Value Reference Range Interpretation Comments WBC (test code = See_Comment [Automated 3690-2) message] The sy stem which generated this result transmitted reference range : 4.20 - 10.70 10*3/?L. The reference range was not used to interpret this result as normal/abnormal . RBC (test code = See_Comment [Automated 140-8) message] The sy stem which generated this result transmitted reference range : 4.26 - 5.52 10*6/?L. The reference range was not used to interpret this result as normal/abnormal . HGB (test code = 14.5 g/dL 12.2-16.4 718-7) HCT (test code = 43.3 % 38.4-49.3 4544-3) MCV (test code = 88.2 fL 81.7-95.6 787-2) MCH (test code = 29.5 pg 26.1-32.7 785-6) MCHC (test code = 33.5 g/dL 31.2-35.0 786-4) RDW-SD (test code = 42.6 fL 38.5-51.6 31463-5) RDW-CV (test code = 13.2 % 12.1-15.4 788-0) PLT (test code = See_Comment [Automated 777-3) message] The sy stem which generated this result transmitted reference range : 150 - 328 10*3/ ?L. The reference r chandler was not used to interpret this result as normal/abnormal . MPV (test code = 9.5 fL 9.8-13.0 L 03494-5) NRBC/100 WBC (test See_Comment [Automat ed code = 8051586193) message] The system which generated this result transmitted reference range : 0.0 - 10.0 /100 WBCs. The refer ence range was not u sed to interpret th is result as normal/abnormal . NRBC x10^3 (test code <0.01 See_Comment [Auto mated = 5826173721) message] The s ystem which generated this result transmitted reference range : 10*3/?L. The reference range was not used to interpret this result as normal/abnormal . GRAN MAT (NEUT) % 58.2 % (test code = 770-8) IMM GRAN % (test code 0.70 % = 6462396475) LYMPH % (test code = 23.9 % 736-9) MONO % (test code = 14.3 % 5905-5) EOS % (test code = 2.0 % 713-8) BASO % (test code = 0.9 % 706-2) GRAN MAT x10^3(ANC) 2.61 10*3/uL 1.99-6.95 (test code = 6195336247) IMM GRAN x10^3 (test 0.03 10*3/uL 0.00-0.06 code = 9863116306) LYMPH x10^3 (test code 1.07 10*3/uL 1.09-3.23 L = 731-0) MONO x10^3 (test code 0.64 10*3/uL 0.36-1.02 = 742-7) EOS x10^3 (test code = 0.09 10*3/uL 0.06-0.53 711-2) BASO x10^3 (test code 0.04 10*3/uL 0.01-0.09 = 704-7) Lab Interpretation Abnormal (test code = 68621-8) [id number] 14:50:00 Test Item Value Reference Range Interpretation Comments VIT D 25OH (test code = 19 ng/mL 25-80 L 99981-5) NEYMAR (test code = NEYMAR) Deficiency: <20 ng/mLInsufficiency: 20-24 ng/mLOptimal: 25-80 ng/mL Lab Interpretation (test Abnormal code = 29481-2) [facility] Metabolic Panel (NA, K, CL, CO2, GLUCOSE, BUN, CREATININE, CA)2020-05-14 09:54:00 Test Item Value Reference Range Interpretation Comments NA (test code = 136 mmol/L 135-145 3008722210) K (test code = 3.9 mmol/L 3.5-5 9079370976) CL (test code = 106 mmol/L 98-108 6742902627) CO2 TOTAL (test code = 24 mmol/L 23-31 6909399115) AGAP (test code = 2-16 7913320725) BUN (test code = 7 mg/dL 7-23 9176037119) GLUCOSE (test code = 92 mg/dL 70-110 0198124019) CREATININE (test code 0.77 mg/dL 0.6-1.25 = 6336854798) CALCIUM (test code = 8.9 mg/dL 8.6-10.6 4501091467) eGFR Calculation mL/min/1.73m2 (Non-) (test code = 6835855960) eGFR Calculation mL/min/1.73m2 () (test code = 1628771162) NEYMAR (test code = NEYMAR) Association of Glomerular Filtration Rate (GFR) and Staging of Kidney Disease* + -+ + ---+| GFR (mL/min/1.73 m2) ?| With Kidney Damage ?| ?Without Kidney Damage+ -------+ ------+ ---------+| ?>90 ?| ?Stage one ?| ? Normal ?+ --+ -+ ----+| ?60-89 ?| ?Stage two ?| ? Decreased GFR ? + -+ + ---+| ?30-59 ?| ?Stage three ?| ? Stage three ? + -+ + ---+| ?15-29 ?| ?Stage four ? | ? Stage four ?+ --+ -+ ----+| ?<15 (or dialysis) ? ?| ?Stage five ? | ? Stage five ?+ --+ -+ ----+ *Each stage assumes the associated GFR level has been in effect for at least three months. ?Stages 1 to 5, with or without kidney disease, indicate chronic kidney disease. Notes: Determination of stages one and two (with eGFR >59mL/min/1.73 m2) requires estimation of kidney damage for at least three months as defined by structural or functional abnormalities of the kidney, manifested by either:Pathological abnormalities or Markers of kidney damage (including abnormalities in the composition of the blood or urine or abnormalities in imaging tests). [facility] with [id number] 09:47:00 Test Item Value Reference Range Interpretation Comments WBC (test code = See_Comment L [Automated 5998-2) message] The sy stem which generated this result transmitted reference range : 4.20 - 10.70 10*3/?L. The reference range was not used to interpret this result as normal/abnormal . RBC (test code = See_Comment [Automated 555-8) message] The sy stem which generated this result transmitted reference range : 4.26 - 5.52 10*6/?L. The reference range was not used to interpret this result as normal/abnormal . HGB (test code = 13.4 g/dL 12.2-16.4 718-7) HCT (test code = 40.2 % 38.4-49.3 4544-3) MCV (test code = 93.7 fL 81.7-95.6 787-2) MCH (test code = 31.2 pg 26.1-32.7 785-6) MCHC (test code = 33.3 g/dL 31.2-35 786-4) RDW-SD (test code = 46.0 fL 38.5-51.6 15622-0) RDW-CV (test code = 13.5 % 12.1-15.4 788-0) PLT (test code = See_Comment [Automated 407-3) message] The sy stem which generated this result transmitted reference range : 150 - 328 10*3/ ?L. The reference r chandler was not used to interpret this result as normal/abnormal . MPV (test code = 9.1 fL 9.8-13 L 18414-1) NRBC/100 WBC (test See_Comment [Automat ed code = 2579019086) message] The system which generated this result transmitted reference range : 0.0 - 10.0 /100 WBCs. The refer ence range was not u sed to interpret th is result as normal/abnormal . NRBC x10^3 (test code <0.01 See_Comment [Auto mated = 8816703531) message] The s ystem which generated this result transmitted reference range : 10*3/?L. The reference range was not used to interpret this result as normal/abnormal . GRAN MAT (NEUT) % 55.7 % (test code = 770-8) IMM GRAN % (test code 0.70 % = 8939442416) LYMPH % (test code = 26.0 % 736-9) MONO % (test code = 13.2 % 5905-5) EOS % (test code = 3.4 % 713-8) BASO % (test code = 1.0 % 706-2) GRAN MAT x10^3(ANC) 2.32 10*3/uL 1.99-6.95 (test code = 4687487200) IMM GRAN x10^3 (test 0.03 10*3/uL 0-0.06 code = 4869931505) LYMPH x10^3 (test code 1.08 10*3/uL 1.09-3.23 L = 731-0) MONO x10^3 (test code 0.55 10*3/uL 0.36-1.02 = 742-7) EOS x10^3 (test code = 0.14 10*3/uL 0.06-0.53 711-2) BASO x10^3 (test code 0.04 10*3/uL 0.01-0.09 = 704-7) Lab Interpretation Abnormal (test code = 43829-9) [id number] 05:08:00 Test Item Value Reference Range Interpretation Comments TROPONIN I (test <0.012 See_Comment [Automated code = 5991293060) message] The system which generated this result transmitted reference range : <=0.034 ng/mL. The reference range was not used to interpr et this result as normal/abnormal . NEYMAR (test code = Equal or Less than NEYMAR) 0.034 ng/ml---Normal ?Note: Cardiac troponin begins to rise 3-4 hours after the onset of ischemia. Repeat in 4-6 hours if the sample was drawn within 3-4 hours of the onset of the symptom and found normal. Between 0.035 and 0.120 ng/mL--- Borderline. Questionable myocardial injury or necrosis ? ?Note: Serial measurement may be necessary to confirm or exclude the diagnosis of myocardial injury or necrosis; Clinical correlation (symptoms, EKGs, imaging studies, and others) required; Repeat in 4-6 hours if clinically indicated. ? Equal or Higher than 0.121 ng/mL---Abnormal. Myocardial Injury or Necrosis Likely ? Biotin has been reported to cause a negative bias, interpret results relative to patient's use of biotin. ? Lab Interpretation Normal (test code = 23074-1) [facility] [id number] 23:35:00 Test Item Value Reference Range Interpretation Comments TROPONIN I (test <0.012 See_Comment [Automated code = 7554151180) message] The system which generated this result transmitted reference range : <=0.034 ng/mL. The reference range was not used to interpr et this result as normal/abnormal . NEYMAR (test code = Equal or Less than NEYMAR) 0.034 ng/ml---Normal ?Note: Cardiac troponin begins to rise 3-4 hours after the onset of ischemia. Repeat in 4-6 hours if the sample was drawn within 3-4 hours of the onset of the symptom and found normal. Between 0.035 and 0.120 ng/mL--- Borderline. Questionable myocardial injury or necrosis ? ?Note: Serial measurement may be necessary to confirm or exclude the diagnosis of myocardial injury or necrosis; Clinical correlation (symptoms, EKGs, imaging studies, and others) required; Repeat in 4-6 hours if clinically indicated. ? Equal or Higher than 0.121 ng/mL---Abnormal. Myocardial Injury or Necrosis Likely ? Biotin has been reported to cause a negative bias, interpret results relative to patient's use of biotin. ? Lab Interpretation Normal (test code = 60702-5) [facility] 1 [id number] 22:32:07 No evidence of acute cardiopulmonary disease. Preliminary Report Dictated by Resident: Pelon Iyer MD., have reviewed this study and agree with theabove report.EXAM: XRCHEST 1 VW 05/13/2020 3:12 PM HISTORY: 49 years-old Male with syncope. COMPARISON: none TECHNIQUE: APchest radiograph. FINDINGS: Lines and tubes: None. The lungs are clear. There is no focal consolidation, pleural effusion orpneumothorax. Elevated right hemidiaphragm likely secondary todiaphragmatic eventration. The cardiomediastinal silhouette is within normal limits. ? Musculoskeletal: No significant skeletal abnormality. [facility], Radiant Results Inft User - 05/13/2020 5:33 PM CDTEXAM: XR CHEST 1 VW 05/13/2020 3:12 PMHISTORY: 49 years-old Male with syncope.COMPARISON: noneTECHNIQUE: AP chest radiograph.FINDINGS:Lines and tubes: None.The lungs are clear. There is no focal consolidation, pleural effusion orpneumothorax. Elevated right hemidiaphragm likely secondary todiaphragmatic eventration.The cardiomediastinal silhouette is within normal limits. Musculoskeletal: No significant skeletal abnormality.IMPRESSIONNo evidence of acute cardiopulmonary disease.Preliminary Report Dictated by Resident: Pelon Gonsalez MD., have reviewed this study and agree with theabove report. [facility]OVID[facility] ([facility] NOW RAPID TESTING)2020-05-13 22:16:00 Test Item Value Reference Range Interpretation Comments SARS-CoV-2 Rapid ID NOW Not Detected Not Detected (test code = 02675-0) NEYMAR (test code = NEYMAR) ID NOW COVID-19 Assay is an isothermal nucleic acid amplification test intended for the qualitative detection of nucleic acid from SARS-CoV-2 viral RNA in nasopharyngeal (CURB SETTER HELPER) specimens. It is used under Emergency Use Authorization (EUA) by FDA. The limit of detection (LOD) of the assay is 125 Genome Equivalents/mL. A positive result is indicative of the presence of SARS-CoV-2 RNA. ?Clinical correlation with patient history and other diagnostic information is necessary to determine patient infection status. A negative (Not Detected) result does not preclude SARS-CoV-2 infection. In patients with clinical symptoms and other tests that are consistent with SARS-CoV-2 infection, negative results should be treated as presumptive negative and a new specimen should be tested with alternative PCR molecular test. Invalid: Please collect a new specimen for repeat patient testing if clinically indicated. Lab Interpretation Normal (test code = 66228-5) [facility] CenterURINALYSIS2020-08-03 21:24:00 Test Item Value Reference Range Interpretation Comments APPEARANCE (test code = Clear Clear 6046720419) COLOR (test code = Yellow Yellow 2264890534) PH (test code = 4.8-8.0 2237003936) SP GRAVITY (test code = 1.003-1.030 1486790243) GLU U QUAL (test code = Normal Normal 8679796410) BLOOD (test code = Negative Negative 0708631227) KETONES (test code = Negative Negative 2491116837) PROTEIN (test code = Negative Negative 2887-8) UROBILIN (test code = Normal Normal 1114789272) BILIRUBIN (test code = Negative Negative 1217235681) NITRITE (test code = Negative Negative 2536954157) LEUK KARINA (test code = Negative Negative 9357423989) RBC/HPF (test code = <1 See_Comment [Autom ated message] 8346271987) The system Personally generated this result transmitted ref erence range: 0 - 3 HP F. The reference range was not used to int erpret this result as normal/abnormal . WBC/HPF (test code = <1 See_Comment [Autom ated message] 5684447440) The system Personally generated this result transmitted ref erence range: 0 - 5 HP F. The reference range was not used to int erpret this result as normal/abnormal . BACTERIA (test code = Few Negative A 8269027374) MUCOUS (test code = Slight Negative LPF A 6839468544) SQ EPITH (test code = <1 HPF 6092383106) Lab Interpretation (test Abnormal code = 05698-7) [facility] CenterCT [facility]ST PULMONARY [id number] 21:19:28Impression:1. ?No acute PTE to the proximal subsegmental level.2. ?Severe diffuse hepatic steatosis,cholecystectomy and smallsliding-type hiatal hernia.CTA chest-PE protocol Technique: Angiographic CT of the chest was performed with contrastadministration, and with creation of sagittal and coronal MIPreconstructions FINDINGS: Pulmonary arteries: Contrast bolus timing is excellent for evaluation ofpulmonary arterial vasculature. No acute PTE to the proximal subsegmentallevel. Main pulmonary artery is normal in size.Lungs: ?Bilateral dependent and scattered subsegmental atelectasis.Subcentimeter per ifissural left lower lobe calcified granuloma.Airways: Patent central airways.Pleura: ?No pleural effusion or pneumothorax.Mediastinum: Few subcentimeter prevascular lymph. No hilar or mediastinallympha denopathy.Cardiovascular: ?No pericardial effusion. No appreciable coronary arterycalcifications. Aorta is normal in size. Normal three-vessel archLower neck and chest wall: Within normal limitsUpper abdomen: Severe diffuse hepatic steatosis. Evidence of priorcholecystectomy. Small sliding-type hiatalhernia patulous distalesophagus.Bones: No acute or aggressive osseous abnormality. [facility], Radiant Results Inft User - 05/13/2020 4:20 PM CDTCTA chest-PE protocol Technique: Angiographic CT of the chestwas performed with contrastadministration, and with creation of sagittal and coronal MIPreconstructionsFINDINGS:Pulmonary arteries: Contrast bolus timing is excellent for evaluation ofpulmonary arterial vasculature. No acute PTE to the proximal subsegmentallevel. Main pulmonary artery is normal in size.Lungs: Bilateral dependent and scattered subsegmental atelectasis.Subcentimeter perifissural left lower lobe calcified granuloma.Airways: Patent central airways.Pleura: No pleural effusion or pneumothorax.Mediastinum: Few subcentimeter prevascular lymph. No hilar or mediastinallymphadenopathy.Cardio vascular: No pericardial effusion. No appreciable coronary arterycalcifications. Aorta is normal insize. Normal three-vessel archLower neck and chest wall: Within normal limitsUpper abdomen: Severe diffuse hepatic steatosis. Evidence of priorcholecystectomy. Small sliding-type hiatal hernia patulousdistalesophagus.Bones: No acute or aggressive osseous abnormality.IMPRESSIONImpression:1. No acute PTE to the proximal subsegmental level.2. Severe diffuse hepatic steatosis, cholecystectomy and smallsliding- type hiatal hernia.[facility] CenterGLYCOSYLATED HEMOGLOBIN (A1C)2020-05-13 20:30:00 Test Item Value Reference Range Interpretation Comments HGB A1C (test code = 4.7 % 4-6 4548-4) NYEMAR (test code = NEYMAR) %A1C (NGSP) Interpretation (ADA)4.8-5.6 ? ? Normal or (Non-Diabetic Range)5.7-6.4 ? ? Increased Risk (Pre-Diabetic)>6.5 ?Diabetes Indicated Lab Interpretation Normal (test code = 23939-6) [facility] CenterD-[id number] 20:23:00 Test Item Value Reference Interpretation Comments Range D-DIMER (test code = See_Comment H [Autom ated 5829195750) message] The system which generated this result transmitted reference range : <0.41 ?g/mL (FEU). The reference range was not used to interpret this result as normal/abnormal . NEYMAR (test code = This test may be NEYMAR) used in conjunction with a clinical pretest probability (PTP) assessment model to exclude venous thromboembolism (VTE) in patients suspected of deep venous thrombosis (DVT) and pulmonary embolism (PE) A D-Dimer value less than 0.50 ?g/ml (FEU) has a negative predicative value of 96 to 100% (95% CI)and 97 to 100% (95% CI) as an aid in the diagnosis of deep vein thrombosis (DVT) and pulmonary embolism when there is low or moderate pretest probability of PE or DVT. D-Dimer values are expressed in initial fibrinogen equivalent units (FEU)" The assay results should be used with other information, including the clinical context, in forming a diagnosis. Lab Interpretation Abnormal (test code = 80992-1) [facility] CenterTROPONIN [id number] 20:18:00 Test Item Value Reference Range Interpretation Comments TROPONIN I (test <0.012 See_Comment [Automated code = 8122348897) message] The system which generated this result transmitted reference range : <=0.034 ng/mL. The reference range was not used to interpr et this result as normal/abnormal . NEYMAR (test code = Equal or Less than NEYMAR) 0.034 ng/ml---Normal ?Note: Cardiac troponin begins to rise 3-4 hours after the onset of ischemia. Repeat in 4-6 hours if the sample was drawn within 3-4 hours of the onset of the symptom and found normal. Between 0.035 and 0.120 ng/mL--- Borderline. Questionable myocardial injury or necrosis ? ?Note: Serial measurement may be necessary to confirm or exclude the diagnosis of myocardial injury or necrosis; Clinical correlation (symptoms, EKGs, imaging studies, and others) required; Repeat in 4-6 hours if clinically indicated. ? Equal or Higher than 0.121 ng/mL---Abnormal. Myocardial Injury or Necrosis Likely ? Biotin has been reported to cause a negative bias, interpret results relative to patient's use of biotin. ? Lab Interpretation Normal (test code = 51927-8) [facility] CenterLIPID PANEL (75746)(TOTAL CHOLESTEROL, TRIGLYCERIDES, HDL)2020-05-13 20:07:00 Test Item Value Reference Range Interpretation Comments CHOL (test code = 248 mg/dL 120-200 H 0150224084) HDL (test code = 68 mg/dL >40 2369074606) HDLC RATIO (test code = See_Comment [Au tomated message] 7298344739) The system Personally generated this result transmit guille reference range : <=5.0. The refe rence range was not u sed to interpret th is result as normal/abnormal . TRIG (test code = 167 mg/dL 30-170 4114637069) LDL CHOL (test code = 147 mg/dL See_Comment [Auto mated message] 74620-5) The system Personally generated this result transmit guille reference range : <=160. The refe rence range was not u sed to interpret th is result as normal/abnormal . VLDL (test code = 33 mg/dL 5-60 6608472936) Lab Interpretation (test Abnormal code = 09341-8) [facility]. METABOLIC PANEL (41108)2020-05-13 20:06:00 Test Item Value Reference Range Interpretation Comments NA (test code = 137 mmol/L 135-145 3883274122) K (test code = 4.0 mmol/L 3.5-5 8272482467) CL (test code = 105 mmol/L 98-108 2957214791) CO2 TOTAL (test code = 24 mmol/L 23-31 9298180759) AGAP (test code = 2-16 3151954308) BUN (test code = 7 mg/dL 7-23 4014113815) GLUCOSE (test code = 98 mg/dL 70-110 4139733017) CREATININE (test code = 0.71 mg/dL 0.6-1.25 3949998338) TOTAL BILI (test code = 0.5 mg/dL 0.1-1.9 2998976170) CALCIUM (test code = 9.5 mg/dL 8.6-10.6 4066403114) T PROTEIN (test code = 8.0 g/dL 6.3-8.2 5682853152) ALBUMIN (test code = 4.6 g/dL 3.5-5 9836631651) ALK PHOS (test code = 54 U/L 34-122 4123689645) ALTv (test code = 111 U/L 5-50 H 1742-6) AST(SGOT) (test code = 99 U/L 13-40 H 0731769566) eGFR Calculation mL/min/1.73m2 (Non-) (test code = 1858554621) eGFR Calculation mL/min/1.73m2 () (test code = 2418002308) NEYMAR (test code = NEYMAR) Association of Glomerular Filtration Rate (GFR) and Staging of Kidney Disease* + --+ --+ ------+| GFR (mL/min/1.73 m2) ?| With Kidney Damage ?| ?Without Kidney Damage+ --------+ --------+ +| ?>90 ?| ?Stage one ?| ? Normal ?+ ---+ ---+ -------+| ?60-89 ?| ?Stage two ?| ? Decreased GFR ? + --+ --+ ------+| ?30-59 ?| ?Stage three ?| ? Stage three ? + --+ --+ ------+| ?15-29 ?| ?Stage four ? | ? Stage four ?+ ---+ ---+ -------+| ?<15 (or dialysis) ? ?| ?Stage five ? | ? Stage five ?+ ---+ ---+ -------+ *Each stage assumes the associated GFR level has been in effect for at least three months. ?Stages 1 to 5, with or without kidney disease, indicate chronic kidney disease. Notes: Determination of stages one and two (with eGFR >59mL/min/1.73 m2) requires estimation of kidney damage for at least three months as defined by structural or functional abnormalities of the kidney, manifested by either:Pathological abnormalities or Markers of kidney damage (including abnormalities in the composition of the blood or urine or abnormalities in imaging tests). Lab Interpretation Abnormal (test code = 89698-8) [facility] WITH [id number] 19:55:00 Test Item Value Reference Range Interpretation Comments WBC (test code = See_Comment [Automated 3423-2) message] The sy stem which generated this result transmitted reference range : 4.20 - 10.70 10*3/?L. The reference range was not used to interpret this result as normal/abnormal . RBC (test code = See_Comment [Automated 824-8) message] The sy stem which generated this result transmitted reference range : 4.26 - 5.52 10*6/?L. The reference range was not used to interpret this result as normal/abnormal . HGB (test code = 14.6 g/dL 12.2-16.4 718-7) HCT (test code = 42.2 % 38.4-49.3 4544-3) MCV (test code = 91.1 fL 81.7-95.6 787-2) MCH (test code = 31.5 pg 26.1-32.7 785-6) MCHC (test code = 34.6 g/dL 31.2-35 786-4) RDW-SD (test code = 43.8 fL 38.5-51.6 50250-5) RDW-CV (test code = 13.3 % 12.1-15.4 788-0) PLT (test code = See_Comment [Automated 777-3) message] The sy stem which generated this result transmitted reference range : 150 - 328 10*3/ ?L. The reference r chandler was not used to interpret this result as normal/abnormal . MPV (test code = 9.2 fL 9.8-13 L 13340-5) NRBC/100 WBC (test See_Comment [Automat ed code = 1262597056) message] The system which generated this result transmitted reference range : 0.0 - 10.0 /100 WBCs. The refer ence range was not u sed to interpret th is result as normal/abnormal . NRBC x10^3 (test code <0.01 See_Comment [Auto mated = 2521443273) message] The s ystem which generated this result transmitted reference range : 10*3/?L. The reference range was not used to interpret this result as normal/abnormal . GRAN MAT (NEUT) % 62.4 % (test code = 770-8) IMM GRAN % (test code 0.60 % = 1184892738) LYMPH % (test code = 22.5 % 736-9) MONO % (test code = 11.8 % 5905-5) EOS % (test code = 1.9 % 713-8) BASO % (test code = 0.8 % 706-2) GRAN MAT x10^3(ANC) 3.33 10*3/uL 1.99-6.95 (test code = 7911191879) IMM GRAN x10^3 (test 0.03 10*3/uL 0-0.06 code = 5782868213) LYMPH x10^3 (test code 1.20 10*3/uL 1.09-3.23 = 731-0) MONO x10^3 (test code 0.63 10*3/uL 0.36-1.02 = 742-7) EOS x10^3 (test code = 0.10 10*3/uL 0.06-0.53 711-2) BASO x10^3 (test code 0.04 10*3/uL 0.01-0.09 = 704-7) Lab Interpretation Abnormal (test code = 37442-0) [facility]
--- NOTE | 2022-01-18 10:34 | RAD REPORT ---
EXAM DESCRIPTION: CT - C Spine Wo Con - 01/18/2022 10:21 am CLINICAL HISTORY: FALL COMPARISON: No comparisons TECHNIQUE CT Scan was obtained of the cervical spine without contrast. Reformats were provided in th e sagittal and coronal plane. FINDINGS: No acute fracture of the cervical spine. No traumatic malalignment. No prevertebral edema. No significant focal degenerative changes. No suspicious thyroid nodules or lymphadenopathy. The nedra g apices are clear. Right mastoidectomy. IMPRESSION: No fracture or traumatic malalignment of the cervical spine.
--- NOTE | 2022-01-18 10:34 | RAD REPORT ---
EXAM DESCRIPTION: CT - Head Brain Wo Cont - 01/18/2022 10:21 am CLINICAL HISTORY: head injury, syncope COMPARISON: No comparisons TECHNIQUE: All CT scans are performed using dose optimization technique as appropriate and may inclu de automated exposure control or mA/KV adjustment according to patient size. FINDINGS: No intracranial hemorrhage, hydrocephalus or extra-axial fluid collection.No areas of brai n edema or evidence of midline shift. Right mastoidectomy. The calvarium is intact. IMPRESSION: No acute intracranial abnormality.
--- NOTE | 2022-01-18 10:42 | RAD REPORT ---
EXAM DESCRIPTION: RAD - Chest Single View - 01/18/2022 10:32 am CLINICAL HISTORY: syncope COMPARISON: Chest Single View dated 05/10/2020; Chest Pa And Lat (2 Views) dated 09/02/2019; Chest Si ngle View dated 07/11/2016; CHEST SINGLE VIEW dated 09/26/2013 FINDINGS: Lines: None. Lungs: No evidence of edema or pneumonia. Pleural: No significant pleural effusions or pneumothorax. Cardiac: The heart size is within normal limits. Bones: No acute fractures. Other: IMPRESSION: No acute cardiopulmonary disease.
[2022-01-18 10:54] LABS: Hematocrit 37.8 % (39.6-49.0); Lymphocytes % 29.9 % (15.3-44.8); MPV 7.4 fL (7.6-11.3)
[2022-01-18 11:12] LABS: ALT/SGPT 135 U/L (12-78); AST/SGOT 173 U/L (15-37); Albumin 3.6 g/dL (3.4-5.0); Alkaline Phosphatase 45 U/L (45-117); BUN Blood Urea Nitrogen 9 mg/dL (7-18); Bicarbonate 23 mmol/L (21-32); Bilirubin Direct 0.2 mg/dL (0-0.2); Bilirubin Total 0.4 mg/dL (0.2-1.0); Glucose Level 86 mg/dL (74-106); NT PRO-BNP 13 pg/mL (<125); Potassium 3.7 mmol/L (3.5-5.1); Protein, Total 7.2 g/dL (6.4-8.2); Sodium Level 140 mmol/L (136-145); Troponin High Sensitivity 6.8 pg/mL (<58.9)
[2022-01-18 11:45] LABS: Protime INR 0.98
[2022-01-18] MEDS ORDERED: NA CHLORIDE 0.9% 1,000 ML ONE (11:53)
--- NOTE | 2022-01-18 13:52 | ER ---
Nurse's Notes [facility] Name: Wyatt Barth Age: 51 yrs Sex: Male : 1970 Arrival Date: 01/18/2022 Time: 10:05 Bed 2 Private MD: Diagnosis: Syncope;Scalp laceration Presentation: 01/18 10:15 Chief complaint: Patient states: Syncopal episode this morning. Pt states, "my blood ss pressure bottomed out and I guess I just passed out." 1.5" laceration noted to L occipital area, no bleeding noted at this time. Pt states this AM his BP was 132/80 then he took his blood pressure medication and sometime around when he passed out, his BP was 76/43. Coronavirus screen: Client denies travel out of the [place] in the last 14 days. Ebola Screen: Patient denies exposure to infectious person. Patient denies travel to an Ebola-affected area in the 21 days before illness onset. Complicating Factors: There are no complicating factors for this patient. Initial Sepsis Screen: Does the patient meet any 2 criteria? No. Patient's initial sepsis screen is negative. Does the patient have a suspected source of infection? No. Patient's initial sepsis screen is negative. Risk Assessment: Do you want to hurt yourself or someone else? Patient reports no desire to harm self or others. 10:15 Method Of Arrival: Ambulatory ss 10:15 Acuity: SELVIN 3 ss 14:15 Onset of symptoms was January 18, 2022. ph Historical: - Allergies: 10:23 PENICILLINS; ss - Home Meds: 10:23 lisinopril 20 mg Oral tab 1 tab once daily [Active]; carvedilol 25 mg oral tab 1 tab ss [Active]; clonidine HCl 0.1 mg Oral tab 1 tab unknown [Active]; - PMHx: 10:23 GERD; Hypertensive disorder; ss - Immunization history:: Client reports having NOT received the Covid vaccine. - Social history:: Smoking status: Patient denies any tobacco usage or history of. Screenin:47 Abuse screen: Denies threats or abuse. Nutritional screening: No deficits noted. vg1 Tuberculosis screening: No symptoms or risk factors identified. Fall Risk Fall in past 12 months (25 points). No secondary diagnosis (0 pts). IV access (20 points). Ambulatory Aid- None/Bed Rest/Nurse Assist (0 pts). Gait- Normal/Bed Rest/Wheelchair (0 pts) Mental Status- Oriented to own ability (0 pts). Total Fenton Fall Scale indicates No Risk (0-24 pts). Assessment: 10:44 General: Appears in no apparent distress. comfortable, Behavior is calm, cooperative. vg1 Pain: Complains of pain in back, JASEN shoulders, neck and head Pain currently is 2 out of 10 on a pain scale. Pain began 30 min ago. Neuro: Level of Consciousness is awake, alert, obeys commands, Oriented to person, place, time, situation, Denies blurred vision dizziness, headache. Cardiovascular: Patient's skin is warm and dry. Respiratory: Airway is patent Respiratory effort is even, unlabored. GI: Patient currently denies nausea, vomiting. : No signs and/or symptoms were reported regarding the genitourinary system. EENT: No signs and/or symptoms were reported regarding the EENT system. Derm: Skin is pink, warm \\T\\ dry. Musculoskeletal: Circulation, motion, and sensation intact. Injury Description: Laceration sustained to left side of the back of head is clean, bleeding moderately. 11:56 Reassessment: Patient appears in no apparent distress at this time. Patient and/or vg1 family updated on plan of care and expected duration. Pain level reassessed. Patient is alert, oriented x 3, equal unlabored respirations, skin warm/dry/pink. Patient denies pain at this time. 12:42 Reassessment: Patient appears in no apparent distress at this time. Patient and/or ph family updated on plan of care and expected duration. Pain level reassessed. Patient is alert, oriented x 3, equal unlabored respirations, skin warm/dry/pink. Mario NAVA at bedside for laceration repsir. 13:45 Reassessment: Patient appears in no apparent distress at this time. Patient and/or vg1 family updated on plan of care and expected duration. Pain level reassessed. Patient is alert, oriented x 3, equal unlabored respirations, skin warm/dry/pink. Patient denies pain at this time. Vital Signs: 10:15 BP 107 / 74; Pulse 79; Resp 16; Temp 98.6(TE); Pulse Ox 97% on R/A; Weight 106.59 kg; ss Height 6 ft. 1 in. (185.42 cm); Pain 7/10; 11:39 BP 97 / 58; Pulse 67; Resp 18; Pulse Ox 95% on R/A; ph 13:39 BP 116 / 68 Supine; Pulse 68; vg1 13:41 BP 128 / 87 Sitting; Pulse 73; vg1 13:43 BP 130 / 97 Standing; Pulse 84; vg1 14:14 BP 125 / 80; Pulse 81; Resp 18; Temp 97.9; Pulse Ox 99% on R/A; ph 10:15 Body Mass Index 31.00 (106.59 kg, 185.42 cm) ss Vitals: 11:39 Cardiac Rhythm Assessment Sinus rhythm. ph ED Course: 10:05 Patient arrived in ED. rg4 10:08 Mario Castorena PA is PHCP. jmm 10:08 Arden Lew MD is Attending Physician. jmm 10:22 Triage completed. ss 10:23 Head Brain Wo Cont In Process Unspecified. EDMS 10:23 C Spine Wo Con In Process Unspecified. EDMS 10:23 Arm band placed on left wrist. ss 10:32 XRAY Chest (1 view) In Process Unspecified. EDMS 10:33 Katiana Boudreaux, RN is Primary Nurse. vg1 10:47 Patient has correct armband on for positive identification. Placed in gown. Bed in low vg1 position. Call light in reach. Side rails up X 1. Adult w/ patient. library monitor on. Pulse ox on. NIBP on. 10:47 Inserted saline lock: 20 gauge in right antecubital area, using aseptic technique. vg1 ,using aseptic technique. Completed by ALBERT RN. 14:14 No provider procedures requiring assistance completed. IV discontinued, intact, ph bleeding controlled, No redness/swelling at site. Pressure dressing applied. Administered Medications: 11:56 Drug: NS 0.9% 1000 ml Route: IV; Rate: 1 bolus; Site: right antecubital; vg1 13:30 Follow up: Response: No adverse reaction; IV Status: Completed infusion; IV Intake: ph 1000ml Intake: 13:30 IV: 1000ml; Total: 1000ml. ph Outcome: 13:51 Discharge ordered by . [facility] 14:15 Discharged to home ambulatory, with family. ph 14:15 Condition: good 14:15 Discharge instructions given to patient, Instructed on discharge instructions, follow up and referral plans. Demonstrated understanding of instructions, follow-up care. 14:16 Patient left the ED. Signatures: Dispatcher [employer] EDMS Mario Castorena PA PA jmm Smirch, Shelby, RN RN ss Brianna Peña RN RN Nikky Lockett4 Katiana Boudreaux RN RN vg1
--- NOTE | 2022-01-18 13:53 | EDPHYS ---
Physician Documentation [facility] Name: Wyatt Barth Age: 51 yrs Sex: Male : 1970 Arrival Date: 01/18/2022 Time: 10:05 Bed 2 Private MD: ED Physician Arden Lew HPI: 01/18 10:13 This 51 yrs old Male presents to ER via Ambulatory with complaints of Passed Out Prior jmm To Arrival, Laceration To Head. 10:13 The patient has experienced syncope. Onset: The symptoms/episode began/occurred jm acutely, today. Duration: This was a single episode, that lasted an unknown period of time. Associated injury: Head/face: left side of the back of head, laceration. Associated signs and symptoms: Pertinent negatives: vomiting. This is a 51 year old male with a history of GERD, HTN that presents to the ED with complaints of syncope which occurred after taking his BP medications. Patient lost consciousness, hitting his head. States he BP was low when he awoke. . Historical: - Allergies: 10:23 PENICILLINS; ss - Home Meds: 10:23 lisinopril 20 mg Oral tab 1 tab once daily [Active]; carvedilol 25 mg oral tab 1 tab ss [Active]; clonidine HCl 0.1 mg Oral tab 1 tab unknown [Active]; - PMHx: 10:23 GERD; Hypertensive disorder; ss - Immunization history:: Client reports having NOT received the Covid vaccine. - Social history:: Smoking status: Patient denies any tobacco usage or history of. ROS: 10:13 Constitutional: Negative for fever, chills, and weight loss, Cardiovascular: Negative jmm for chest pain, palpitations, and edema, Respiratory: Negative for shortness of breath, cough, wheezing, and pleuritic chest pain. 10:13 Skin: Positive for laceration(s). 10:13 Neuro: Positive for loss of consciousness. 10:13 All other systems are negative. Exam: 10:13 Constitutional: This is a well developed, well nourished patient who is awake, alert, jmm and in no acute distress. 10:13 Eyes: EOMI, no conjunctival erythema appreciated ENT: Moist Mucus Membranes Neck: Trachea midline, Supple Chest/axilla: Normal chest wall appearance and motion. Cardiovascular: Regular rate and rhythm. No edema appreciated Respiratory: Normal respirations, no respiratory distress appreciated Abdomen/GI: Non distended, soft Back: Normal ROM 10:13 Head/face: 4 cm laceration noted to the left side of the scalp. 10:13 Skin: 4 cm laceration noted to the left side of the head. 10:13 Neuro: Orientation: is normal, Mentation: is normal, Memory: is normal. 10:13 Psych: Behavior/mood is pleasant, cooperative. Vital Signs: 10:15 BP 107 / 74; Pulse 79; Resp 16; Temp 98.6(TE); Pulse Ox 97% on R/A; Weight 106.59 kg; ss Height 6 ft. 1 in. (185.42 cm); Pain 7/10; 11:39 BP 97 / 58; Pulse 67; Resp 18; Pulse Ox 95% on R/A; ph 13:39 BP 116 / 68 Supine; Pulse 68; vg1 13:41 BP 128 / 87 Sitting; Pulse 73; vg1 13:43 BP 130 / 97 Standing; Pulse 84; vg1 14:14 BP 125 / 80; Pulse 81; Resp 18; Temp 97.9; Pulse Ox 99% on R/A; ph 10:15 Body Mass Index 31.00 (106.59 kg, 185.42 cm) ss Laceration: 12:51 Wound Repair of 4cm ( 1.6in ) subcutaneous laceration to left side of the back of head. jmm Distal neuro/vascular/tendon intact. Anesthesia: Local anesthetic administered with 2 mls of 1% lidocaine. Wound prep: Simple cleansing with hibiclenz by me. Skin closed with 6 1-0 Mike using staple gun. Patient tolerated well. MDM: 10:13 Patient medically screened. jmm 13:50 Data reviewed: vital signs, nurses notes. Counseling: I had a detailed discussion with daina the patient and/or guardian regarding: the historical points, exam findings, and any diagnostic results supporting the discharge/admit diagnosis, lab results, radiology results, the need for outpatient follow up, to return to the emergency department if symptoms worsen or persist or if there are any questions or concerns that arise at home. ED course: Patient is alert and nontoxic in appearance in the ED. Vital signs are within normal limits. Patient advised to decrease blood pressure medication and follow-up with cardiology/PCP for medication changes. Patient otherwise given strict return precautions. Patient understood agrees plan of care.. 01/18 10:14 Order name: Basic Metabolic Panel; Complete Time: 11:15 [facility] 01/18 10:14 Order name: CBC with Diff; Complete Time: 10:58 [facility] 01/18 10:14 Order name: LFT's; Complete Time: 11:15 [facility] 01/18 10:14 Order name: Magnesium; Complete Time: 11:15 [facility] 01/18 10:14 Order name: NT PRO-BNP; Complete Time: 11:15 [facility] 01/18 10:14 Order name: PT-INR; Complete Time: 11:45 [facility] 01/18 10:14 Order name: Troponin HS; Complete Time: 11:15 [facility] 01/18 10:14 Order name: XRAY Chest (1 view); Complete Time: 10:49 [facility] 01/18 10:14 Order name: EKG; Complete Time: 10:15 [facility] 01/18 10:14 Order name: Cardiac monitoring; Complete Time: 10:44 [facility] 01/18 10:14 Order name: CT Head C Spine [facility] 01/18 10:18 Order name: Head Brain Wo Cont; Complete Time: 10:42 [facility] 01/18 10:19 Order name: C Spine Wo Con; Complete Time: 10:42 [facility] 01/18 10:14 Order name: EKG - Nurse/Tech; Complete Time: 10:44 [facility] 01/18 10:14 Order name: IV Saline Lock; Complete Time: 10:44 [facility] 01/18 10:14 Order name: Labs collected and sent; Complete Time: 10:44 [facility] 01/18 10:14 Order name: O2 Per Protocol; Complete Time: 10:44 [facility] 01/18 10:14 Order name: O2 Sat Monitoring; Complete Time: 10:44 [facility] 01/18 12:44 Order name: Orthostatic Blood Pressure; Complete Time: 13:50 jmm Administered Medications: 11:56 Drug: NS 0.9% 1000 ml Route: IV; Rate: 1 bolus; Site: right antecubital; vg1 13:30 Follow up: Response: No adverse reaction; IV Status: Completed infusion; IV Intake: ph 1000ml Disposition Summary: 01/18/22 13:51 Discharge Ordered Location: Home [facility] Condition: Stable [facility] Diagnosis - Syncope jmm - Scalp laceration jmm Followup: jmm - With: Private Physician - When: 2 - 3 days - Reason: Recheck today's complaints, Continuance of care, Re-evaluation by your physician Discharge Instructions: - Discharge Summary Sheet jmm - Facial Laceration jmm - Syncope jmm Forms: - Medication Reconciliation Form jmm - Thank You Letter jmm - Antibiotic Education jmm - Prescription Opioid Use [facility] Addendum: 01/22/2022 18:34 Co-signature as Attending Physician, Arden Lew MD I agree with the assessment and c lino plan of care. Signatures: Dispatcher [employer] EDArden Romero MD MD cha Mickail, Joel, PA PA jmm Smirch, Shelby, RN RN ss Katiana Boudreaux RN RN vg1 Brianna Peña RN ph
[2022-01-18 14:29] VITALS: BP 125/80; TEMP 97.9; O2SAT 99
--- NOTE | 2022-01-19 09:38 | EKG ---
Test Date: 2022-01-18 Test Time: 10:41:59 Cath Lab Radiological Technologist: PAULA MEASUREMENT RESULTS: Intervals: Rate: 69 [place]: 180 QRSD: 86 QT: 388 QTc: 415 [place]: P: 24 [place]: 180 QRS: 4 T: 18 INTERPRETIVE STATEMENTS: Normal sinus rhythm Normal ECG Compared to ECG 05/10/2020 17:09:31 Sinus tachycardia no longer present Myocardial infarct finding no longer present Electronically Signed On 01-19-22 09:35:41 CDT by Zach Coy
== END 2022-01-18 14:16 | disposition home or self-care (01) ==
LOC: ER 10:04
PROC: 0JQ00ZZ Repair Scalp Subcutaneous Tissue and Fascia, Open Approach (ICD-10-PCS; principal; 2022-01-18)
DX: S01.01XA Laceration without foreign body of scalp, initial encounter (principal); I10 Essential (primary) hypertension; K21.9 Gastro-esophageal reflux disease without esophagitis; Z88.0 Allergy status to penicillin
CPT/HCPCS: 36415; 70450; 71045; 72125; 80048; 80076; 83735; 83880; 84484; 85025; 85610; 93005; 96360; 96361; 99284; J7030

== ENCOUNTER 2022-10-29 18:08 | Inpatient (IN) | payer SELFPAY ==
--- OUTSIDE RECORDS SUMMARY | 2022-10-29 18:12 | XMS REPORT | Continuity of Care Document ---
:1970 Author Organization [facility] t Address [address] [place] [address] Care Team Providers Name Role Phone Rita Nunez MD Primary Care Physician Rita Nunez MD Attending Clinician Doctor Unassigned, [place] Attending Clinician Unavailable Katherine Parrish Attending Clinician KATHERINE HUMMEL Attending Clinician Unavailable ANALILIA MOE Attending Clinician Unavailable Analilia Pierce Attending Clinician RITA NUNEZ Attending Clinician Unavailable Janet Montenegro NP Attending Clinician Bill Alba DO Attending Clinician Guanakito Garcia DO Attending Clinician Tra Davenport MD Attending Clinician TRA DAVENPORT Attending Clinician Unavailable ANALILIA MOE Admitting Clinician Unavailable Tra Davenport MD Admitting Clinician TRA DAVENPORT Admitting Clinician Unavailable Payers Payer Name Policy Type Policy Number Effective Date Expiration Date S [employer] [id number] 2017 PPO 00:00:00 Problems Condition Condition Condition Status Onset Resolution Last Treating Co mments Source Name Details Category Date Date Treatment Clinician Date Essential Essential Disease Active 2020-0 Uni vers hypertensi hypertensi 8-04 it y of on on 00:00: [place] [address] Medical Branch Palpitatio Palpitatio Disease Active U nivers n n 8-04 ity of 00:00: [place] [facility] Alcohol Alcohol Disease Active Univers abuse abuse 8-04 ity of 00:00: [place] [address] Medical Branch Near Near Disease Active Univers syncope syncope 8- ity of 00:00: [place] [address] Medical Branch Hyperlipid Hyperlipid Disease Active U nivers emia, emia, 8-10 ity of unspecifie [place] Medical hyperlipid hyperlipid Br anch emia type emia type Elevated Elevated Disease Active Unive rs BP BP 8-10 ity of 00:00: [place] [address] Medical Branch Allergies, Adverse Reactions, Alerts This patient has no known allergies or adverse reactions. Social History Social Habit Start Date Stop Date Quantity Comments Source History of Passive smoker University of tobacco use [facility] Alcohol intake 2021-12-12 2021-12-12 Current drinker Unive rsity of 00:00:00 00:00:00 of alcohol [place] [facility] (finding) [facility] History SDOH 2020-05-14 2020-05-14 5 University o f Alcohol Frequency 00:00:00 00:00:00 [place] [facility] History SDOH 2020-05-14 2020-05-14 99 University o f Alcohol Std 00:00:00 00:00:00 [place] [facility] Drinks Branch History SDND 2020-05-14 2020-05-14 99 University o f Alcohol Binge 00:00:00 00:00:00 [place] [facility] Alcohol Comment 2020-05-14 2020-05-14 1/2 gallon every Uni versity of 00:00:00 00:00:00 2-3 days of rum [place] [facility] Tobacco use and 2020-05-13 2020-05-13 Smokeless tobacco Un iversity of exposure 00:00:00 00:00:00 non-user [facility] Sex Assigned At [birth year] Universit y of 00:00:00 00:00:[address] [facility] Smoking Status Start Date Stop Date Source Never smoked tobacco [facility] Medications Ordered Filled Start Stop Current Ordering Indication Dosage Frequency Signature Comments Components Source Medication Medication Date Date Medication? Clinician (SIG) Name Name BUSPIRONE 5 Yes [id number] TAKE ONE Univers mg tablet 6-27 TABLET BY ity o f 00:00: MOUTH [place] 00 TWICE A Medical DAY Branch BUSPIRONE 5 Yes [id number] TAKE ONE Univers mg tablet 5-31 TABLET BY ity o f 00:00: MOUTH [place] 00 TWICE A Medical DAY Branch BUSPIRONE 5 Yes [id number] TAKE ONE Univers mg tablet 5-31 TABLET BY ity o f 00:00: MOUTH [place] 00 TWICE A Medical DAY Branch carvediloL Yes [id number] 12.5mg Take 1 Univers 12.5 mg 5-31 tablet by ity of tablet 00:00: mouth 2 [place] 00 (two) Medical times Branch daily with meals. carvediloL Yes [id number] 12.5mg Take 1 Univers 12.5 mg 5-31 tablet by ity of tablet 00:00: mouth 2 [place] 00 (two) Medical times Branch daily with meals. carvediloL Yes [id number] 12.5mg Take 1 Univers 12.5 mg 5-31 tablet by ity of tablet 00:00: mouth 2 [place] 00 (two) Medical times Branch daily with meals. BUSPIRONE 5 2021- No [id number] TAKE ONE Univers mg tablet 5-31 06-27 TABLET BY ity of 00:00: 00:00 MOUTH [place] 00 :00 TWICE A Medical DAY Branch sildenafiL Yes [id number] TAKE ONE Univers 50 mg 5-18 TABLET BY ity of tablet 00:00: MOUTH [place] 00 DAILY Medical NEEDED FOR Branch ERECTILE DYSFUNCTIO N (ONE HOR BEFORE ACTIVITY) sildenafiL Yes [id number] TAKE ONE Univers 50 mg 5-18 TABLET BY ity of tablet 00:00: MOUTH [place] 00 DAILY Medical NEEDED FOR Branch ERECTILE DYSFUNCTIO N (ONE HOR BEFORE ACTIVITY) sildenafiL Yes [id number] TAKE ONE Univers 50 mg 5-18 TABLET BY ity of tablet 00:00: MOUTH [place] 00 DAILY Medical NEEDED FOR Branch ERECTILE DYSFUNCTIO N (ONE HOR BEFORE ACTIVITY) sildenafiL Yes [id number] TAKE ONE Univers 50 mg 5-18 TABLET BY ity of tablet 00:00: MOUTH [place] 00 DAILY Medical NEEDED FOR Branch ERECTILE DYSFUNCTIO N (ONE HOR BEFORE ACTIVITY) sildenafiL 2021-0 Yes [id number] TAKE ONE Univers 50 mg 5-18 TABLET BY ity of tablet 00:00: MOUTH [place] 00 DAILY Medical NEEDED FOR Branch ERECTILE DYSFUNCTIO N (ONE HOR BEFORE ACTIVITY) sildenafiL 2021-0 Yes [id number] TAKE ONE Univers 50 mg 5-18 TABLET BY ity of tablet 00:00: MOUTH [place] 00 DAILY Medical NEEDED FOR Branch ERECTILE DYSFUNCTIO N (ONE HOR BEFORE ACTIVITY) lisinopriL 2021-0 Yes [id number] 20mg Take 1 U nivers 20 mg 5-16 tablet by ity of tablet 00:00: mouth [place] 00 daily. Medical Branch lisinopriL 0 Yes [id number] 20mg Take 1 U nivers 20 mg 5-16 tablet by ity of tablet 00:00: mouth [place] 00 daily. Medical Branch lisinopriL 0 Yes [id number] 20mg Take 1 U nivers 20 mg 5-16 tablet by ity of tablet 00:00: mouth [place] 00 daily. Medical Branch lisinopriL 0 Yes [id number] 20mg Take 1 U nivers 20 mg 5-16 tablet by ity of tablet 00:00: mouth [place] 00 daily. Medical Branch lisinopriL 0 Yes [id number] 20mg Take 1 U nivers 20 mg 5-16 tablet by ity of tablet 00:00: mouth [place] 00 daily. Medical Branch lisinopriL 2021-0 Yes [id number] 20mg Take 1 U nivers 20 mg 5-16 tablet by ity of tablet 00:00: mouth [place] 00 daily. Medical Branch lisinopriL 2021-0 Yes [id number] 20mg Take 1 U nivers 20 mg 5-16 tablet by ity of tablet 00:00: mouth [place] 00 daily. Medical Branch busPIRone 5 2021-0 Yes [id number] 5mg Take 1 Univers mg tablet 5-03 tablet by ity o f 00:00: mouth 2 00 (two) Medical times Branch daily. busPIRone 5 2021-0 Yes [id number] 5mg Take 1 Univers mg tablet 5-03 tablet by ity o f 00:00: mouth 2 [place] 00 (two) Medical times Branch daily. busPIRone 5 2021-0 Yes [id number] 5mg Take 1 Univers mg tablet 5-03 tablet by ity o f 00:00: mouth 2 [place] 00 (two) Medical times Branch daily. busPIRone 5 2021-0 2021- No [id number] 5mg Take 1 Univers mg tablet 5-03 05-31 tablet by ity of 00:00: 00:00 mouth 2 [place] 00 :00 (two) Medical times Branch daily. sildenafiL 2021-0 Yes [id number] TAKE ONE Univers 50 mg 5-02 TABLET BY ity of tablet 00:00: MOUTH [place] 00 DAILY Medical NEEDED FOR Branch ERECTILE DYSFUNCTIO N (ONE HOR BEFORE ACTIVITY) CARVEDILOL 2021-0 Yes [id number] TAKE ONE Univers 12.5 mg 5-02 TABLET BY ity of tablet 00:00: MOUTH [place] 00 TWICE A Medical DAY WITH A Branch MEAL CARVEDILOL 2021-0 Yes [id number] TAKE ONE Univers 12.5 mg 5-02 TABLET BY ity of tablet 00:00: MOUTH [place] 00 TWICE A Medical DAY WITH A Branch MEAL CARVEDILOL 2021-0 Yes [id number] TAKE ONE Univers 12.5 mg 5-02 TABLET BY ity of tablet 00:00: MOUTH [place] 00 TWICE A Medical DAY WITH A Branch MEAL CARVEDILOL 2021-0 Yes [id number] TAKE ONE Univers 12.5 mg 5-02 TABLET BY ity of tablet 00:00: MOUTH [place] 00 TWICE A Medical DAY WITH A Branch MEAL CARVEDILOL 2021-0 2021- No [id number] TAKE ONE Univers 12.5 mg 5-02 05-31 TABLET BY ity of tablet 00:00: 00:00 MOUTH [place] 00 :00 TWICE A Medical DAY WITH A Branch MEAL sildenafiL 2021-0 2- No [id number] TAKE ONE Univers 50 mg 5-02 05-18 TABLET BY ity of tablet 00:00: 00:00 MOUTH [place] 00 :00 DAILY Medical NEEDED FOR Branch ERECTILE DYSFUNCTIO N (ONE HOR BEFORE ACTIVITY) LISINOPRIL 2021-0 2021- No [id number] TAKE ONE Univers 20 mg 5-02 05-13 TABLET BY ity of tablet 00:00: 00:00 MOUTH [place] 00 :00 DAILY Medical Branch Procedures Procedure Date / Time Performed Performing Clinician [facility] e REFERRAL- 2022-03-12 05:01:00 Doctor Unassigned, No Univer [facility] REQUEST/RESPONSE Name [facility] Branch Encounters Start End Encounter Admission Attending Care Care Encounter Source Date/Time Date/Time Type Type Clinicians Facility Department ID 2021-08-11 Emergency [facility] [id number] Univers 07:07:[address] [facility] 2022-10-26 2022-10-26 Outpatient [facility] [id number] Adon[place] 11:15:00 11:15:00 [id number] [place] 2022-08-19 2022-08-19 Outpatient [facility] [id number] Adonay 16:09:00 16:09:00 [id number] [place] 2022-08-12 2022-08-12 Outpatient [facility] [id number] Adonay 08:47:57 08:47:57 [id number] [place] 2022-07-22 2022-07-22 Outpatient [facility] [id number] Adonay 15:48:14 15:48:14 [id number] [place] 2022-04-05 2022-04-05 [facility] 1.2.840.114 [id number] Univers 00:00:00 00:00:00 [facility] 350.1.13.10 it y of [place] 4.2.7.2.686 Emmanuel as TEJAS?BLEA [phone] [address] MEDICAL OFFICE [facility] 2022-03-12 2022-03-12 Orders Doctor LAGUNAS 1.2.840.114 [id number] Univers 00:00:00 00:00:00 Only Unassigned, ULICES 350.1.13.10 ity of [place] [facility] 4.2.7.2.686 Emmanuel as [phone] [address] 2022-03-10 2022-03-10 [facility] 1.2.840.114 [id number] Univers 00:00:00 00:00:00 [facility] 350.1.13.10 it y of [place] 4.2.7.2.686 Emmanuel as TEJAS?BLEA [phone] [address] MEDICAL OFFICE [facility] 2022-03-10 2022-03-10 [facility] 1.2.840.114 [id number] Univers 00:00:00 00:00:00 Rita HEALTH 350.1.13.10 it y of [place] 4.2.7.2.686 Emmanuel as TEJAS?BLEA [phone] [address] OFFICE [facility] 2022-03-06 2022-03-06 [facility] 1.2.840.114 [id number] Univers 00:00:00 00:00:00 Rita HEALTH 350.1.13.10 it y of [place] 4.2.7.2.686 Emmanuel as TEJAS?BLEA [phone] [address] OFFICE [facility] 2022-02-25 2022-02-25 Reflouisa [facility] 1.2.840.114 [id number] Univers 00:00:00 00:00:00 Rita HEALTH 350.1.13.10 it y of [place] 4.2.7.2.686 Emmanuel as TEJAS?BLEA [phone] [address] OFFICE [facility] 2022-02-20 2022-02-20 Refill [facility] 1.2.840.114 [id number] Univers 00:00:00 00:00:00 Rita HEALTH 350.1.13.10 it y of [employer] [facility] [facility] 4.2.7.2.686 Emmanuel as TEJAS?BLEA [phone] [address] OFFICE [facility] 2022-02-20 2022-02-20 Refill Doctor [facility] 1.2.840.114 [id number] Univers 00:00:00 00:00:00 Unassigned, HEALTH 350.1.13.10 ity of [place] 4.2.7.2.686 Emmanuel as TEJAS?BLEA [phone] [address] OFFICE [facility] 2022-02-20 2022-02-20 Refill Estephanie [facility] 1.2.840.114 [id number] Univers 00:00:00 00:00:00 Katherine A HEALTH 350.1.13.10 i ty of [place] 4.2.7.2.686 Emmaneul as TEJAS?BLEA [phone] [address] OFFICE [facility] 2022-02-10 2022-02-10 Reflouisa Hum[facility] 1.2.840.114 [id number] Univers 00:00:00 00:00:00 Katherine A HEALTH 350.1.13.10 i ty of [place] 4.2.7.2.686 Emmanuel as TEJAS?BLEA [id number] [address] OFFICE [facility] 2022-02-08 2022-02-08 Refill [facility] 1.2.840.114 [id number] Univers 00:00:00 00:00:00 Rita HEALTH 350.1.13.10 it y of [place] 4.2.7.2.686 Emmanuel as TEJAS?BLEA [phone] [address] OFFICE [facility] 2022-02-07 2022-02-07 Reflouisa [facility] 1.2.840.114 [id number] Univers 00:00:00 00:00:00 Katherine A HEALTH 350.1.13.10 i ty of [place] 4.2.7.2.686 Emmanuel as TEJAS?BLEA [phone] [address] 2022-02-07 2022-02-07 Reflouisa [facility] 1.2.840.114 [id number] Univers 00:00:00 00:00:00 [place] [facility] 350.1.13.10 it y of [place] 4.2.7.2.686 Emmanuel as TEJAS?BLEA [phone] [address] OFFICE [facility] 2022-02-04 2022-02-04 Orders Doctor JANNETH 1.2.840.114 [id number] Univers 00:00:00 00:00:00 Only Unassigned, ULICES 350.1.13.10 ity of [place] [facility] 4.2.7.2.686 Emmanuel as [phone] [address] 2022-01-19 2022-01-19 Telephone [facility] 1.2.492.737 [id number] Univers 00:00:00 00:00:00 Rita HEALTH 350.1.13.10 it y of [place] 4.2.7.2.686 Emmanuel as TEJAS?BLEA [phone] Wi talat MALLOY [address] [place] [address] OFFICE BUILDING 2022-01-10 2022-01-10 Refill Doctor [facility] 1.2.840.114 [id number] Univers 00:00:00 00:00:00 Unassigned, HEALTH 350.1.13.10 ity of [place] 4.2.7.2.686 Emmanuel as PROFESSIO [phone] [facility] [address] [place] [address] OFFICE [facility] ONE 2022-01-08 2022-01-08 Refill Estephanie, [facility] 1.2.840.114 [id number] Univers 00:00:00 00:00:00 Katherine Branodn HEALTH 350.1.13.10 i ty of [place] 4.2.7.2.686 Emmanuel as TEJAS?BLEA [phone] Wi talat MALLOY [address] [place] [address] OFFICE BUILDING 2021-12-31 2021-12-31 Refill Enrique, [facility] 1.2.840.114 [id number] Univers 00:00:00 00:00:00 Rita HEALTH 350.1.13.10 it y of [place] 4.2.7.2.686 Emmanuel as PROFESSIO [phone] Wi dical NAL [address] [place] [address] OFFICE [facility] ONE 2021-12-29 2021-12-29 Refill Doctor [facility] 1.2.840.114 [id number] Univers 00:00:00 00:00:00 Unassigned, HEALTH 350.1.13.10 ity of [place] 4.2.7.2.686 Emmanuel as PROFESSIO [phone] Wi dical NAL [address] [place] [address] OFFICE [facility] ONE 2021-12-24 2021-12-24 Refill Doctor [facility] 1.2.840.114 [id number] Univers 00:00:00 00:00:00 Unassigned, HEALTH 350.1.13.10 ity of [place] 4.2.7.2.686 Emmanuel as PROFESSIO [phone] Wi dical NAL [address] [place] [address] OFFICE [facility] ONE 2021-12-14 2021-12-14 Refill Doctor [facility] 1.2.840.114 [id number] Univers 00:00:00 00:00:00 Unassigned, HEALTH 350.1.13.10 ity of [place] 4.2.7.2.686 Emmanuel as PROFESSIO [phone] [address] OFFICE [facility] ONE 2021-12-14 2021-12-14 Refill Doctor [facility] 1.2.840.114 [id number] Univers 00:00:00 00:00:00 Unassigned, HEALTH 350.1.13.10 ity of [place] 4.2.7.2.686 Emmanuel as PROFESSIO [phone] [address] ONE 2021-12-12 2021-12-12 Outpatient R ESTEPHANIE, [facility] [id number] Univers 16:00:00 16:28:37 [facility] 2021-12-12 2021-12-12 Refill Doctor [facility] 1.2.840.114 [id number] Univers 00:00:00 00:00:00 Unassigned, HEALTH 350.1.13.10 ity of [place] 4.2.7.2.686 Emmanuel as PROFESSIO [phone] [address] ONE 2021-12-02 2021-12-02 Refill Doctor [facility] 1.2.840.114 [id number] Univers 00:00:00 00:00:00 Unassigned, HEALTH 350.1.13.10 ity of [place] 4.2.7.2.686 Emmanuel as PROFESSIO [phone] Wi dical NAL [address] [place] [address] OFFICE [facility] ONE 2021-11-22 2021-11-22 Refill Doctor [facility] 1.2.840.114 [id number] Univers 00:00:00 00:00:00 Unassigned, HEALTH 350.1.13.10 ity of [place] 4.2.7.2.686 Emmanuel as PROFESSIO [phone] [facility] NAL [address] [place] [address] OFFICE [facility] ONE 2021-11-22 2021-11-22 Refill Doctor [facility] 1.2.840.114 [id number] Univers 00:00:00 00:00:00 Unassigned, HEALTH 350.1.13.10 ity of [place] 4.2.7.2.686 Emmanuel as PROFESSIO [phone] Wi dical NAL [address] [place] [address] OFFICE BUILDING ONE 2021-11-22 2021-11-22 Refill Enrique, [facility] 1.2.840.114 [id number] Univers 00:00:00 00:00:00 Rita HEALTH 350.1.13.10 it y of [place] 4.2.7.2.686 Emmanuel as PROFESSIO [phone] Wi dical NAL [address] [place] OFFICE BUILDING ONE 2021-11-20 2021-11-20 Refill Enrique, [facility] 1.2.840.114 [id number] Univers 00:00:00 00:00:00 Rita HEALTH 350.1.13.10 it y of [place] 4.2.7.2.686 Emmanuel as PROFESSIO [phone] Wi dical NAL [address] [place] [address] OFFICE BUILDING ONE 2021-11-10 2021-11-10 Refill Enrique, [facility] 1.2.840.114 [id number] Univers 00:00:00 00:00:00 Rita HEALTH 350.1.13.10 it y of [place] 4.2.7.2.686 Emmanuel as PROFESSIO [phone] Wi dical NAL [address] [place] [address] OFFICE BUILDING ONE 2021-11-07 2021-11-07 Refill Doctor [facility] 1.2.840.114 [id number] Univers 00:00:00 00:00:00 Unassigned, HEALTH 350.1.13.10 ity of [place] 4.2.7.2.686 Emmanuel as PROFESSIO [phone] Wi dical NAL [address] [place] OFFICE BUILDING ONE 2021-10-26 2021-10-26 Refill Enrique, [facility] 1.2.840.114 [id number] Univers 00:00:00 00:00:00 Rita HEALTH 350.1.13.10 it y of [place] 4.2.7.2.686 Emmanuel as PROFESSIO [phone] Wi dical NAL [address] [place] [address] OFFICE BUILDING ONE 2021-10-17 2021-10-17 Refill Doctor [facility] 1.2.840.114 [id number] Univers 00:00:00 00:00:00 Unassigned, HEALTH 350.1.13.10 ity of [place] 4.2.7.2.686 Emmanuel as PROFESSIO [phone] [facility] [address] OFFICE [facility] ONE 2021-10-05 2021-10-05 Reflouisa Castanedaers [facility] 1.2.840.114 [id number] Univers 00:00:00 00:00:00 Rita HEALTH 350.1.13.10 it y of [place] 4.2.7.2.686 Emmanuel as TEJAS?BLEA [phone] [facility] JOSE [address] OFFICE BUILDING 2021-09-22 2021-09-22 Refill Doctor [facility] 1.2.840.114 [id number] Univers 00:00:00 00:00:00 Unassigned, HEALTH 350.1.13.10 ity of [place] 4.2.7.2.686 Emmanuel as TEJAS?BLEA [phone] [address] OFFICE [facility] 2021-09-18 2021-09-18 [facility] 1.2.840.114 [id number] Univers 00:00:00 00:00:00 Rita HEALTH 350.1.13.10 it y of [place] 4.2.7.2.686 Emmanuel as TEJAS?BLEA [phone] [address] OFFICE [facility] 2021-09-10 2021-09-10 [facility]et [facility] 1.2.840.114 [id number] Univers 00:00:00 00:00:00 Rita HEALTH 350.1.13.10 it y of [place] 4.2.7.2.686 Emmanuel as TEJAS?BLEA [id number] [facility] JOSE [address] OFFICE BUILDING 2021-09-02 2021-09-02 [facility]et [facility] 1.2.840.114 [id number] Univers 00:00:00 00:00:00 Rita HEALTH 350.1.13.10 it y of [place] 4.2.7.2.686 Emmanuel as TEJAS?BLEA [phone] Wi talat MALLOY [address] [place] [address] OFFICE [facility] 2021-08-20 2021-08-20 Refill Enrique [facility] 1.2.840.114 [id number] Univers 00:00:00 00:00:00 Rita HEALTH 350.1.13.10 [facility] 4.2.7.2.686 Emmanuel as TEJAS?BLEA [phone] [facility] JOSE [address] 2021-08-19 2021-08-19 Refill Doctor [facility] 1.2.840.114 [id number] Univers 00:00:00 00:00:00 Unassigned, HEALTH 350.1.13.10 ity of [place] 4.2.7.2.686 Emmanuel as PROFESSIO [phone] [address] 2021-08-18 2021-08-18 Patient Enrique [facility] 1.2.840.114 [id number] Univers 00:00:00 00:00:00 Secure Msg [place] HEALTH 350.1.13.10 [facility] 4.2.7.2.686 Emmanuel as TEJAS?BLEA [phone] [address] 2021-08-13 2021-08-13 Emergency X ABHI [facility] ERT [id number] Univers 12:31:00 14:24:00 ANALILIA ity of [facility] 2021-08-13 2021-08-13 Emergency Abhi [facility] 1.2.318.267 [id number] Univers 12:31:00 14:24:00 Analilia S [place] 350.1.13.10 i ty of [place] 4.2.7.2.686 [place] [phone] [address] 2021-08-08 2021-08-08 Refill Enrique [facility] 1.2.840.114 [id number] Univers 00:00:00 00:00:00 Rita HEALTH 350.1.13.10 it [facility] 4.2.7.2.686 Emmanuel as PROFESSIO [phone] [address] ONE 2021-07-28 2021-07-28 Orders Doctor JANNETH 1.2.840.114 [id number] Univers 00:00:00 00:00:00 Only Unassigned, ULICES 350.1.13.10 [facility] 4.2.7.2.686 Emmanuel as [phone] [address] 2021-07-27 2021-07-27 Genet Nunez [facility] 1.2.840.114 [id number] Univers 00:00:00 00:00:00 [facility] 350.1.13.10 it y of [place] 4.2.7.2.686 Emmanuel as Professio [phone] [address] Office Building One 2021-06-20 2021-06-20 Genet Nunez [facility] 1.2.840.114 [id number] Univers 00:00:00 00:00:00 [facility] 350.1.13.10 it y of [place] 4.2.7.2.686 Emmanuel as Professio [phone] [address] Office [facility] One 2021-06-07 2021-06-07 [facility]louisa [facility] 1.2.840.114 [id number] Univers 00:00:00 00:00:00 [facility] 350.1.13.10 it y of [place] 4.2.7.2.686 Emmanuel as Professio [phone] [address] Office [facility] One 2021-05-26 2021-05-26 Outpatient Latosha NUNEZ CTGIOVANNY [facility] [id number] Univers 15:00:00 15:00:00 RITA ity [facility] 2021-05-09 2021-05-09 Reflouisa Nunez [facility] 1.2.840.114 [id number] Univers 00:00:00 00:00:00 [facility] 350.1.13.10 it y of [place] 4.2.7.2.686 Emmanuel as Professio [phone] [address] Office [facility] One 2021-04-24 2021-04-24 Office Enrique [facility] 1.2.840.114 [id number] Univers 14:16:08 14:31:08 Visit [facility] 350.1.13.10 it y of [place] 4.2.7.2.686 Emmanuel as Professio [phone] [address] Office Building One 2021-04-24 2021-04-24 Outpatient R ENRIQUE [facility] [id number] Univers 14:15:00 14:15:00 RITA ity of [facility] 2021-04-24 2021-04-24 Orders Doctor JANNETH 1.2.840.114 [id number] Univers 00:00:00 00:00:00 Only Unassigned, ULICES [id number] ity of [place] [facility] 4.2.7.2.686 Emmanuel as [phone] [address] 2021-04-18 2021-04-18 Emergency [facility] [id number] Univers 12:04:00 15:40:00 Janet Rodriguez [id number] ity of [place] 4.2.7.2.686 [facility] [phone] [facility] [address] [place] 2021-04-18 2021-04-18 Orders Doctor JANNETH 1.2.840.114 [id number] Univers 00:00:00 00:00:00 Only Unassigned, ULICES [id number] ity of [place] [facility] 4.2.7.2.686 Emmanuel as [phone] [address] 2021-04-09 2021-04-09 [facility] 1.2.840.114 [id number] Univers 00:00:00 00:00:00 [facility] [id number] it y of [place] [id number] Emmanuel as Professio [phone] [address] Office [facility] 2021-03-18 2021-03-18 [facility] 1.2.840.114 [id number] Univers 00:00:00 00:00:00 [facility] [id number] it y of [place] [id number] Emmanuel as Professio [phone] Me [address] One 2021-02-01 2021-02-01 Refill Enrique [facility] [id number] Univers 00:00:00 00:00:00 [facility] [id number] [place] [id number] Emmanuel as Professio [phone] [address] One 2020-12-24 2020-12-24 Patient Parth [facility] [id number] Univers 00:00:00 00:00:00 Outreach Bill PRIMARY [id number] i ty of [facility] [place]2.7.2.[place] [phone] [address] 2020-11-14 2020-11-14 Outpatient R ENRIQUE [facility] [id number] Univers 15:00:00 15:00:00 RITA salomon [facility] 2020-11-14 2020-11-14 Office Enrique [facility] [id number] Univers 14:43:05 14:58:05 Visit [facility] [id number] [place] [id number] Emmanuel as Professio [phone] [address] Office [facility] One 2020-11-14 2020-11-14 Refill Doctor [facility] 1.2.840.114 [id number] Univers 00:00:00 00:00:00 Unassigned, Health [id number] ity of [place] 4.2.7.2.686 Emmanuel as Professio [phone] [address] Office [facility] One 2020-11-14 2020-11-14 Telephone Enrique [facility] [id number] Univers 00:00:00 00:00:00 [facility] [id number] [place] [id number] Emmanuel as Professio [phone] [address] Office [facility] One 2020-08-15 2020-08-15 Refill Enrique [facility] 1.2.840.114 [id number] Univers 00:00:00 00:00:[address] [facility] [id number] it [place] of [place] [id number] Emmanuel as Professio [phone] [address] Office [facility] One 2020-05-27 2020-05-27 Orders Doctor JANNETH 1.2.840.114 [id number] Univers 00:00:00 00:00:00 Only Unassigned, ULICES 350.1.13.10 [facility] 4.2.7.2.686 Emmanuel as [phone] [address] 2020-05-21 2020-05-21 Outpatient R ENRIQUE [facility] [id number] Univers 10:00:00 10:00:00 RITA salomon [facility] 2020-05-21 2020-05-21 [facility] 1.2.840.114 [id number] Univers 07:50:19 08:05:19 ne Visit Rita [place] [id number] [place] [phone] [address] 2020-05-13 2020-05-14 Emergency Guanakito Garcia [facility] 1.2.840. 114 [id number] Univers 14:31:00 13:14:00 Tra [place] [id number] [place].2.686 [place] [phone] [address] 2020-05-14 2020-05-14 [facility] [id number] Univers 00:00:00 00:00:[address] [facility] [id number] it y of [place] [id number] Emmanuel as Professio [phone] [address] Office [facility] 2020-05-13 2020-05-13 Outpatient X ETHEL [facility] [id number] Univers 14:31:00 14:31:00 TRA salomon [facility] Results Test Description Test Time Test Comments Results Result Comments Source COMPREHENSIVE METABOLIC PANEL 2022-10-27 03:20:31 Test Item Value Reference Range Interpretation Comme nts GLUCOSE (test code = 2216) 70 MG/DL 70-99 BUN (test code = 220) 5 MG/DL 6-20 L CREATININE (test code = 0.74 MG/DL 0.80-1.40 L 2213) eGFR (2020 CKD-EPI) (test 108 ML/MIN/1.73 >60 code = 62430) CALC BUN/CREAT (test code = 7 RATIO 04-07) SODIUM (test code = 2230) 145 MEQ/L 133-146 POTASSIUM (test code = 222) 3.5 MEQ/L 3.5-5.4 CHLORIDE (test code = 2214) 101 MEQ/L 95-107 CARBON DIOXIDE (test code = 24 MEQ/L 2205) CALCIUM (test code = 2208) 9.5 MG/DL 8.5-10.5 PROTEIN, TOTAL (test code = 7.3 G/DL 6.1-8.3 2228) ALBUMIN (test code = 2200) 4.2 G/DL 3.5-5.2 CALC GLOBULIN (test code = 3.1 G/DL 1.9-3.7 2239) CALC A/G RATIO (test code = 1.4 RATIO 1.0-2.6 2233) BILIRUBIN, TOTAL (test code 0.7 MG/DL See_Comment [Automated message] The = 2206) system which ge nerated this result transmit guille reference range : <=1.2. The reference range was not used to interpr et this result as anastasia l/abnormal. ALKALINE PHOSPHATASE (test 92 U/L 40-121 code = 2204) AST (test code = 2218) 95 U/L 9-50 H ALT (test code = 2219) 90 U/L 5-50 H LIPID [id number] 03:20:31 Test Item Value Reference Range Interpretation Comments CHOLESTEROL (test 255 MG/DL <200 H code = 2210) TRIGLYCERIDES (test 160 MG/DL <150 H code = 2232) HDL CHOLESTEROL (test 54 MG/DL >39 code = 2220) CALC LDL CHOL (test 170 MG/DL <100 H NOTE: C ALCULATED LDL code = 2237) IS BASED ON SUE-KU METHOD WHICHINCLUDES ADJUSTABLE TRIGLYCERIDE:VL DL CHOLESTEROL RAT IO.THIS FACTOR VARIES B Y MEASURED TRIGLY CERIDE AND NON-HDLCHOL ESTEROL CONCENTRATIONS WITH INCREASED CALCU LATED LDL SEENIN HIGH ER TRIGLYCERIDE OR LOWER NON-HDL SPECIME NS. FOR MOREINFORMATION , SEE CLIENT ANNOUNCE MENT AT [email or web address] [email or web address] RATIO LDL/HDL 3.15 RATIO <3.55 UNLESS O THERWISE (test code = 2238) INDICATED , ALL TESTING PERFORMED [facility], [facility]. [address] [place], [place] [id number] [place] [address] DIRECTOR: CARMELO ZARAGOZA M.D. CLIA NUMBER [id number] CAP ACCREDITATION N O. [id number] 03:19:56 Test Item Value Reference Range Interpretation Comments GGT (test code = 2216) 84 U/L <60 H [id number] 07:48:26 Test Item Value Reference Range Interpretation Comments GGT (test code = 2216) 210 U/L <60 H COMPREHENSIVE METABOLIC [id number] 07:45:07 Test Item Value Reference Range Interpretation Comments GLUCOSE (test code = 87 MG/DL 70-99 2216) BUN (test code = 5 MG/DL 6-20 L 2207) CREATININE (test 0.86 MG/DL 0.80-1.40 code = 2214) eGFR (2020 CKD-EPI) 104 >60 (test code = 69169) ML/MIN/1.73 CALC BUN/CREAT (test 6 RATIO 6-28 code = 2235) SODIUM (test code = 140 MEQ/L 729-071 0440) POTASSIUM (test code 3.9 MEQ/L 3.5-5.4 = 2227) CHLORIDE (test code 101 MEQ/L 95-107 = 2215) CARBON DIOXIDE (test 25 MEQ/L 19-31 code = 2206) CALCIUM (test code = 9.1 MG/DL 8.5-10.5 2208) PROTEIN, TOTAL (test 7.1 G/DL 6.1-8.3 code = 222) ALBUMIN (test code = 4.4 G/DL 3.5-5.2 2200) CALC GLOBULIN (test 2.7 G/DL 1.9-3.7 code = 2240) CALC A/G RATIO (test 1.6 RATIO 1.0-2.6 code = 2234) BILIRUBIN, TOTAL 1.3 MG/DL See_Comment H [Automated message] (test code = 2207) The syste m which generated this result transmit guille reference range : <=1.2. The refe rence range was not u sed to interpret th is result as normal/abnormal . ALKALINE PHOSPHATASE 60 U/L 40-121 (test code = 2203) AST (test code = 126 U/L 9-50 H 2217) ALT (test code = 102 U/L 5-50 H 2218) HEPATITIS PANEL, [id number] 06:33:52 Test Item Value Reference Range Interpretation Comments HEPATITIS A IgM (test NON-REACTIVE NON-REACTIVE code = 43450) HEPATITIS B CORE IgM NON-REACTIVE NON-REACTIVE (test code = 4644) HEPATITIS B SURF AG NON-REACTIVE NON-REACTIVE (test code = 2739) HEPATITIS C ANTIBODY NON-REACTIVE NON-REACTIVE (test code = 4675) INTERPRETATION (NOTE) Hepatitis A HEPATITIS A: (test serology shows no code = 2552) evidence of acu te hepatitis A. INTERPRETATION (NOTE) Hepatitis B HEPATITIS B: (test serology shows no code = 66135) evidence of ac vini hepatitis B and no indication of exposure to hepatitis B vir us in the previous si xto eight months. INTERPRETATION (NOTE) Hepatitis C HEPATITIS C: (test serology shows no code = 14530) evidence of ex posure to hepatitisC v irus at this time. I t can take up to 12 m onths after exposure tothe hepatitis C vir us for antibodies to become detectab le in the blood in ce rtain patients. UNLES S OTHERWISE INDIC ATED, ALL TESTING PERFORMED [facility], [place]. [address] [place] [address] [employer] DIRECTOR: CARMELO ZARAGOZA M.D. CLIA NUMBER [id number] [place] [id number] VITAMIN [id number] 01:43:21 Test Item Value Reference Range Interpretation Comments VITAMIN B-12 (test 340 PG/ML 200-950 UNLESS O THERWISE code = 2840) INDICATED, ALL TESTING PERFORMED [facility] [address] [place] [address] [employer] DIRECTOR: CARMELO ZARAGOZA M.D. CLIA NUMBER [id number] CAP ACCREDITATION N O. [id number] PSA, [id number] 06:56:39 Test Item Value Reference Range Interpretation Comments PSA, TOTAL 1.00 NG/ML See_Comment NOTE: Methodol ogy is Scarlett (test code = Yen Electroch emiluminescence 2606) Immunoassay tra ceable to WHO reference stand vicki 96/760. UNLESS OTHERWIS E INDICATED, ALL TESTING PERFORM ED [facility]IN[facility], [facility]. [address] [place] [address] LABORATORY DIRE CTOR: CARMELO ZARAGOZA M.D. CLIA NUMBER [id number] [place]. [id number] [A utomated message] The [employer] stem which generated this result transmitted ref erence range: <=4.00. The ref erence range was not used to int erpret this result as anastasia l/abnormal. COMPREHENSIVE METABOLIC [id number] 04:26:33 Test Item Value Reference Range Interpretation Comments GLUCOSE (test code = 87 MG/DL 70-99 2216) BUN (test code = 12 MG/DL 6-20 2207) CREATININE (test 1.19 MG/DL 0.80-1.40 code = 2214) eGFR (2020 CKD-EPI) 73 ML/MIN/1.73 >60 (test code = 72347) CALC BUN/CREAT (test 10 RATIO 6-28 code = 2235) SODIUM (test code = 133 MEQ/L 536-482 9353) POTASSIUM (test code 4.2 MEQ/L 3.5-5.4 = 222) CHLORIDE (test code 94 MEQ/L 95-107 L = 2215) CARBON DIOXIDE (test 25 MEQ/L 19-31 code = 2206) CALCIUM (test code = 10.0 MG/DL 8.5-10.5 2208) PROTEIN, TOTAL (test 7.5 G/DL 6.1-8.3 code = 2229) ALBUMIN (test code = 4.9 G/DL 3.5-5.2 2200) CALC GLOBULIN (test 2.6 G/DL 1.9-3.7 code = 2240) CALC A/G RATIO (test 1.9 RATIO 1.0-2.6 code = 2234) BILIRUBIN, TOTAL 0.9 MG/DL See_Comment [Automated message] (test code = 2206) The syste m which generated this result transmit guille reference range : <=1.2. The refe rence range was not u sed to interpret th is result as normal/abnormal . ALKALINE PHOSPHATASE 66 U/L 40-121 (test code = 2203) AST (test code = 161 U/L 9-50 H 2218) ALT (test code = 154 U/L 5-50 H 2219) CBC W/AUTO DIFF WITH [id number] 03:41:51 Test Item Value Reference Range Interpretation Comments WBC (test code = 4.6 K/UL 3.5-11.0 1001) RBC (test code = 4.74 M/UL 4.50-6.10 1002) HEMOGLOBIN (test code 15.4 G/DL 13.5-17.0 = 1003) HEMATOCRIT (test code 43.4 % 40.0-51.0 = 1004) MCV (test code = 91.6 fL 80.0-99.0 1005) MCH (test code = 32.5 PG 25.0-33.0 1006) MCHC (test code = 35.5 G/DL 31.0-36.0 1007) RDW (test code = 18.3 % 11.5-15.0 H 1038) NEUTROPHILS (test 46.9 % code = 1008) LYMPHOCYTES (test 32.6 % code = 1010) MONOCYTES (test code 17.4 % = 1011) EOSINOPHILS (test 1.5 % code = 1012) BASOPHILS (test code 0.9 % = 1013) IMMATURE GRANULOCYTES 0.7 % (test code = 1036) NUCLEATED RBCS (test 0.0 /100 WBC'S See_Comment [Aut omated code = 1065) message] The sy stem which generated this result transmitted reference range : 0.0. The refere nce range was not u sed to interpret th is result as normal/abnormal . PLATELET COUNT (test 192 K/UL 130-400 code = 1015) ABSOLUTE NEUTROPHILS 2.16 K/UL 1.50-7.50 (test code = 1066) ABSOLUTE LYMPHOCYTES 1.50 K/UL 1.00-4.00 (test code = 1067) ABSOLUTE MONOCYTES 0.80 K/UL 0.20-1.00 (test code = 1068) ABSOLUTE EOSINOPHILS 0.07 K/UL 0.00-0.50 (test code = 1040) ABSOLUTE BASOPHILS 0.04 K/UL 0.00-0.20 (test code = 1069) ABS IMMATURE 0.03 K/UL 0.00-0.10 GRANULOCYTES (test code = 1020) ABS NUCLEATED RBCS 0.00 K/UL 0.00-0.11 (test code = 34448) TSH, THIRD [id number] 06:26:55 Test Item Value Reference Range Interpretation Comments TSH, THIRD 1.200 UIU/ML 0.400-4.100 UNLESS OTHERWI SE GENERATION (test INDICATED, ALL TESTING code = 2821) PERFORMED [facility], [facility] [address] [place] [id number] [place] [address] DIRECTOR: CARMELO ZARAGOZA M.D. CLIA NUMBER [id number] CAP ACCREDITATION N O. [id number] CBC W/AUTO DIFF WITH [id number] 09:03:53 Test Item Value Reference Range Interpretation Comments WBC (test code = 4.4 K/UL 3.5-11.0 1001) RBC (test code = 4.66 M/UL 4.50-6.10 1002) HEMOGLOBIN (test code 12.7 G/DL 13.5-17.0 L = 1003) HEMATOCRIT (test code 39.3 % 40.0-51.0 L = 1004) MCV (test code = 84.3 fL 80.0-99.0 1005) MCH (test code = 27.3 PG 25.0-33.0 1006) MCHC (test code = 32.3 G/DL 31.0-36.0 1007) RDW (test code = 14.4 % 11.5-15.0 1038) NEUTROPHILS (test 53.3 % code = 1008) LYMPHOCYTES (test 30.6 % code = 1010) MONOCYTES (test code 13.1 % = 1011) EOSINOPHILS (test 2.1 % code = 1012) BASOPHILS (test code 0.7 % = 1013) IMMATURE GRANULOCYTES 0.2 % (test code = 1036) NUCLEATED RBCS (test 0.0 /100 WBC'S See_Comment [Aut omated code = 1065) message] The sy stem which generated this result transmitted reference range : 0.0. The refere nce range was not u sed to interpret th is result as normal/abnormal . PLATELET COUNT (test 199 K/UL 130-400 code = 1015) ABSOLUTE NEUTROPHILS 2.32 K/UL 1.50-7.50 (test code = 1066) ABSOLUTE LYMPHOCYTES 1.33 K/UL 1.00-4.00 (test code = 1067) ABSOLUTE MONOCYTES 0.57 K/UL 0.20-1.00 (test code = 1068) ABSOLUTE EOSINOPHILS 0.09 K/UL 0.00-0.50 (test code = 1040) ABSOLUTE BASOPHILS 0.03 K/UL 0.00-0.20 (test code = 1069) ABS IMMATURE 0.01 K/UL 0.00-0.10 GRANULOCYTES (test code = 1020) ABS NUCLEATED RBCS 0.00 K/UL 0.00-0.11 (test code = 67735) COMPREHENSIVE METABOLIC [id number] 04:40:45 Test Item Value Reference Range Interpretation Comments GLUCOSE (test code = 80 MG/DL 70-99 2216) BUN (test code = 9 MG/DL 6-20 2207) CREATININE (test 0.76 MG/DL 0.80-1.40 L code = 2214) eGFR (2020 CKD-EPI) 107 >60 (test code = 79721) ML/MIN/1.73 CALC BUN/CREAT (test 12 RATIO 6-28 code = 2235) SODIUM (test code = 137 MEQ/L 765-687 1280) POTASSIUM (test code 4.2 MEQ/L 3.5-5.4 = 2227) CHLORIDE (test code 97 MEQ/L 95-107 = 2215) CARBON DIOXIDE (test 25 MEQ/L 19-31 code = 2206) CALCIUM (test code = 9.8 MG/DL 8.5-10.5 2208) PROTEIN, TOTAL (test 7.4 G/DL 6.1-8.3 code = 222) ALBUMIN (test code = 4.7 G/DL 3.5-5.2 2200) CALC GLOBULIN (test 2.7 G/DL 1.9-3.7 code = 2240) CALC A/G RATIO (test 1.7 RATIO 1.0-2.6 code = 2234) BILIRUBIN, TOTAL 0.6 MG/DL See_Comment [Automated message] (test code = 2207) The syste m which generated this result transmit guille reference range : <=1.2. The refe rence range was not u sed to interpret th is result as normal/abnormal . ALKALINE PHOSPHATASE 55 U/L 40-121 (test code = 2204) AST (test code = 138 U/L 9-50 H 2217) ALT (test code = 100 U/L 5-50 H 2218) LIPID [id number] 04:40:45 Test Item Value Reference Range Interpretation [...] MOREINFORMATION , SEE CLIENT ANNOUNCE MENT AT [email or web address] RATIO LDL/HDL 2.29 RATIO <3.55 UNLESS O THERWISE (test code = 2238) INDICATED , ALL TESTING PERFORMED [facility], [facility]. [address] [place] [address] [facility] DIRECTOR: Renard DRISCOLLIA NUMBER [id number] CAP ACCREDITATION N O. [id number]
[2022-10-29 19:08] LABS: Hematocrit 46.3 % (39.6-49.0); MCV 100.6 fL (80-100); MPV 6.4 fL (7.6-11.3)
[2022-10-29 19:26] LABS: Magnesium 1.8 mg/dL (1.6-2.4); Troponin High Sensitivity 7.1 pg/mL (<58.9)
[2022-10-29 19:30] LABS: Protime INR 1.12
[2022-10-29] MEDS ORDERED: POTASSIUM 25 MEQ EFFERV TAB ONE (19:39)
--- NOTE | 2022-10-29 19:54 | RAD REPORT ---
EXAM DESCRIPTION: US - Extremity Venous Uni Ltd - 10/29/2022 7:38 pm CLINICAL HISTORY: Swelling Leg swelling and edema. COMPARISON: No comparisons FINDINGS: Right lower extremity venous system was interrogated with Doppler technique. Normal flow, compressibility and augmentation was noted. There is no DVT present. IMPRESSION: No evidence of right lower extremity deep venous thrombosis.
--- NOTE | 2022-10-29 20:22 | RAD REPORT ---
EXAM DESCRIPTION: CT - Chest For Pe Angio - 10/29/2022 8:13 pm CLINICAL HISTORY: Chest pain. PE rule out COMPARISON: Chest Pa And Lat (2 Views) dated 09/02/2019 TECHNIQUE: CT angiogram of the pulmonary arteries was performed with MIP. All CT scans are performed using dose optimization technique as appropriate and may include automated exposure control or mA/KV adjustment according to patient size. FINDINGS: Moderate bilateral segmental pulmonary emboli are seen involving upper and lower branches. Mild RV strain pattern observed. No acute aortic finding demonstrated. The lungs are clear. No significant pericardial or pleural fluid. No concerning bony finding. IMPRESSION: Moderate bilateral segmental branch pulmonary emboli. Mild RV strain pattern.
--- NOTE | 2022-10-29 20:45 | ER ---
Nurse's Notes [facility] Name: Wyatt Barth Age: 52 yrs Sex: Male : 1970 Arrival Date: 10/29/2022 Time: 18:10 Bed 7 Private MD: Diagnosis: bilateral segmental branch pulmonary emboli with mild RV strain Presentation: 10/29 18:22 Chief complaint: Patient states: pain/ swelling to R calf and shortness of breath that ss patient noticed this morning. Coronavirus screen: Client denies travel out of the [place] in the last 14 days. Ebola Screen: Patient denies exposure to infectious person. Patient denies travel to an Ebola-affected area in the 21 days before illness onset. Initial Sepsis Screen: Does the patient meet any 2 criteria? No. Patient's initial sepsis screen is negative. Does the patient have a suspected source of infection? No. Patient's initial sepsis screen is negative. Risk Assessment: Do you want to hurt yourself or someone else? Patient reports no desire to harm self or others. Onset of symptoms was October 29, 2022. 18:22 Method Of Arrival: Ambulatory ss 18:22 Acuity: SELVIN 3 Triage Assessment: 23:51 Respiratory: Reports pf1 Historical: - Allergies: 18:24 No Known Allergies; ss - Home Meds: 18:24 buspirone 10 mg Oral tab 1 tab 2 times per day [Active]; carvedilol 25 mg Oral tab 1 ss tab daily [Active]; lisinopril-hydrochlorothiazide 10-12.5 mg oral tab 1 tab once daily [Active]; - PMHx: 18:24 GERD; Hypertensive disorder; ss - PSHx: 18:24 Cholecystectomy; tumor removed to neck as child; Tonsillectomy; ss - Immunization history:: Client reports having NOT received the Covid vaccine. - Social history:: Smoking status: Patient denies any tobacco usage or history of. Screenin:29 [facility] ED Fall Risk Assessment (Adult) History of falling in the last 3 months, ph including since admission No falls in past 3 months (0 pts) Confusion or Disorientation No (0 pts) Intoxicated or Sedated No (0 pts) Impaired Gait No (0 pts) Mobility Assist Device Used No (0 pt) Altered Elimination No (0 pt) Score/Fall Risk Level 0 - 2 = Low Risk Oriented to surroundings, Maintained a safe environment, Hourly rounding (assess needs \T\ fall precautionary measures) done. Abuse screen: Denies threats or abuse. Denies injuries from another. Nutritional screening: No deficits noted. Tuberculosis screening: No symptoms or risk factors identified. Assessment: 19:00 General: Appears in no apparent distress. comfortable, Behavior is calm, cooperative, mb9 appropriate for age. Pain: Complains of pain in right calf Pain does not radiate. Pain currently is 5 out of 10 on a pain scale. Quality of pain is described as aching, throbbing, Pain began 1 day ago. Aggravated by increased activity, repositioning, weight bearing. Neuro: Powell Agitation-Sedation Scale (RASS): 0 - Alert and Calm Level of Consciousness is awake, alert, obeys commands, Oriented to person, place, time, situation, Appropriate for age. Cardiovascular: Heart tones S1 S2 present Capillary refill < 3 seconds is brisk Patient's skin is warm and dry. Rhythm is regular. Respiratory: Airway is patent Respiratory effort is even, unlabored, Respiratory pattern is regular, symmetrical, Breath sounds are clear bilaterally. Denies shortness of breath at rest. GI: No signs and/or symptoms were reported involving the gastrointestinal system. : No signs and/or symptoms were reported regarding the genitourinary system. EENT: No signs and/or symptoms were reported regarding the EENT system. Derm: Skin is pink, warm \T\ dry. Musculoskeletal: Range of motion: intact in all extremities, Swelling present in right calf Tenderness present in right calf. 19:57 Reassessment: No changes from previously documented assessment. Patient and/or family mb9 updated on plan of care and expected duration. Pain level reassessed. Patient is alert, oriented x 3, equal unlabored respirations, skin warm/dry/pink. Patient states feeling better. 20:03 Reassessment: pt taken to CT via stretcher. mb9 23:20 Reassessment: Patient appears in no apparent distress at this time. Patient and/or jb4 family updated on plan of care and expected duration. Pain level reassessed. Patient is alert, oriented x 3, equal unlabored respirations, skin warm/dry/pink. Vital Signs: 18:22 BP 112 / 85; Pulse 82; Resp 16; Temp 98.5(TE); Pulse Ox 98% on R/A; Weight 106.59 kg; ss Height 6 ft. 1 in. (185.42 cm); Pain 5/10; 19:48 BP 111 / 92; Pulse 65; Resp 18; Pulse Ox 98% on R/A; mb9 23:20 BP 125 / 90; Pulse 69; Resp 18; Pulse Ox 97% on R/A; jb4 18:22 Body Mass Index 31.00 (106.59 kg, 185.42 cm) ED Course: 18:10 Patient arrived in ED. rg4 18:24 Triage completed. ss 18:24 Arm band placed on right wrist. ss 18:26 Seema Mcnally, AAKASH is Primary Nurse. ss 18:29 Primary Nurse role handed off by Seema Mcnally RN ph 18:29 Brianna Peña RN is Primary Nurse. ph 18:39 Kelsey Bell PA-C is PHCP. sb4 18:39 Jono Aguiar MD is Attending Physician. sb4 18:57 Initial lab(s) drawn, by ar, sent to lab. Inserted saline lock: 20 gauge in right ph forearm, using aseptic technique. Blood collected. 19:00 Patient has correct armband on for positive identification. Placed in gown. Bed in low pf1 position. Call light in reach. 19:39 Extremity Venous Uni Ltd US In Process Unspecified. EDMS 20:14 CT Chest For PE Angio In Process Unspecified. EDMS 20:43 Rodolfo Gillespie MD is Hospitalizing Provider. sb4 20:49 Primary Nurse role handed off by Brianna Peña RN wm 22:30 SARS-COV-2 Antigen Rapid Sent. as7 22:30 LFT's Sent. as7 23:51 No provider procedures requiring assistance completed. Patient admitted, IV remains in pf1 place. Administered Medications: 19:47 Drug: Potassium Effervescent Tablet 50 mEq Route: PO; mb9 20:04 Follow up: Response: No adverse reaction mb9 23:02 Drug: Thiamine 100 mg Route: PO; jb4 23:50 Follow up: Response: No adverse reaction pf1 23:02 Drug: foLIC Acid 1 mg Route: PO; jb4 23:50 Follow up: Response: No adverse reaction pf1 23:03 Drug: Lovenox (enoxaparin) 1 mg/kg Route: Sub-Q; Site: right lower abdomen; jb4 23:50 Follow up: Response: No adverse reaction pf1 Medication: 18:29 VIS not applicable for this client. ph Outcome: 20:45 Decision to Hospitalize by Provider. sb4 23:54 Admitted to Med/surg accompanied by tech, via wheelchair, room 208, with chart, Report pf1 called to Maria Eugenia 23:54 Condition: stable 23:54 Instructed on the need for admit, Demonstrated understanding of instructions. 23:55 Patient left the ED. pf1 Signatures: Dispatcher [employer] EDMS Seema Mcnally, AAKASH RN ss Brianna Peña RN RN Nikky Lockett James RN RN jb4 Li Dyson Sophia PADevin PADevin freire4 [place], Manda Baltazar, RN RN mb9 Janet vanegas RN RN pf1 Geneva Anderson as7 Corrections: (The following items were deleted from the chart) 18:26 18:24 Allergies: PENICILLINS; [facility]
--- NOTE | 2022-10-29 20:46 | EDPHYS ---
Physician Documentation [facility] Name: Wyatt Barth Age: 52 yrs Sex: Male : 1970 Arrival Date: 10/29/2022 Time: 18:10 Bed 7 Private MD: ED Physician Jono Aguiar HPI: 10/29 18:44 This 52 yrs old Male presents to ER via Ambulatory with complaints of Leg Swelling, sb4 Shortness Of Breath. 18:45 Patient is a 52 year old male with hypertension who presented with complaints of right sb4 calf swelling and shortness of breath. He states that he has had intermittent calf pain over the past month (and attributed it to muscle spasms) but noticed swelling in his right calf today. He has also reported some mild shortness of breath. He works a desk job. States he was in a car for quite some time on a trip to [place] for [employer]. No personal history of blood clots, but his brother does. He is unaware of any bleeding disorder.. Historical: - Allergies: 18:24 No Known Allergies; ss - Home Meds: 18:24 buspirone 10 mg Oral tab 1 tab 2 times per day [Active]; carvedilol 25 mg Oral tab 1 ss tab daily [Active]; lisinopril-hydrochlorothiazide 10-12.5 mg oral tab 1 tab once daily [Active]; - PMHx: 18:24 GERD; Hypertensive disorder; ss - PSHx: 18:24 Cholecystectomy; tumor removed to neck as child; Tonsillectomy; ss - Immunization history:: Client reports having NOT received the Covid vaccine. - Social history:: Smoking status: Patient denies any tobacco usage or history of. ROS: 18:45 Constitutional: Negative for fever, chills, and weight loss, Eyes: Negative for injury, sb4 pain, redness, and discharge, ENT: Negative for injury, pain, and discharge, Neck: Negative for injury, pain, and swelling, Cardiovascular: Negative for chest pain, palpitations, and edema, Abdomen/GI: Negative for abdominal pain, nausea, vomiting, diarrhea, and constipation, Back: Negative for injury and pain. 18:45 Respiratory: Positive for dyspnea on exertion. sb4 18:45 MS/extremity: Positive for erythema, swelling, warmth, right calf. Exam: 18:45 Constitutional: This is a well developed, well nourished patient who is awake, alert, sb4 and in no acute distress. Head/Face: Normocephalic, atraumatic. Eyes: Pupils equal round and reactive to light, extra-ocular motions intact. Periorbital areas with no swelling, redness, or edema. ENT: Mucous membranes moist. Cardiovascular: Regular rate and rhythm with a normal S1 and S2. Respiratory: Lungs have equal breath sounds bilaterally, clear to auscultation and percussion. No rales, rhonchi or wheezes noted. No increased work of breathing, no retractions or nasal flaring. Abdomen/GI: Soft, non-tender, no distension. Back: No spinal tenderness. No costovertebral tenderness. Full range of motion. Skin: Warm, dry with normal turgor. Normal color with no rashes, no lesions, and no evidence of cellulitis. 18:45 Musculoskeletal/extremity: DVT Exam: pain, that is mild, of the right leg, swelling, that is moderate, of the right leg, tenderness, that is mild, of the right leg, erythema, that is moderate, of the right leg, increased warmth, that is moderate, of the right leg. 19:34 ECG was reviewed by the Attending Physician. sb4 Vital Signs: 18:22 BP 112 / 85; Pulse 82; Resp 16; Temp 98.5(TE); Pulse Ox 98% on R/A; Weight 106.59 kg; ss Height 6 ft. 1 in. (185.42 cm); Pain 5/10; 19:48 BP 111 / 92; Pulse 65; Resp 18; Pulse Ox 98% on R/A; mb9 23:20 BP 125 / 90; Pulse 69; Resp 18; Pulse Ox 97% on R/A; jb4 18:22 Body Mass Index 31.00 (106.59 kg, 185.42 cm) ss MDM: 18:42 Patient medically screened. sb4 18:49 Differential diagnosis: CHF exacerbation, Chronic Obstructive Pulmonary Disease sb4 Pulmonary Embolism Unstable Angina. 20:40 Data interpreted: Pulse oximetry: on room air is 98 %. Data reviewed: vital signs, sb4 nurses notes, lab test result(s), radiologic studies, CT scan, ultrasound, I have discussed the patient's presentation/case with the attending Emergency Department Physician;. Consideration of Admission/Observation Patient was admitted/placed on observation. Management of patient was discussed with the following: Disease Case Manager: Contacted Dr. Williamson who recommended admission to hospitalist, maciej portillo, and he will see patient in the AM.. Response to treatment: the patient's symptoms have mildly improved after treatment. Response to treatment: and as a result, I will admit patient. Admission orders: after a detailed discussion of the patient's condition and case, the admit orders are written by me. 10/29 18:44 Order name: CBC w/o diff; Complete Time: 19:29 sb4 10/29 18:44 Order name: BMP; Complete Time: 19:27 sb4 10/29 18:44 Order name: DD; Complete Time: 19:32 sb4 10/29 18:44 Order name: PT-INR; Complete Time: 19:32 sb4 10/29 18:44 Order name: Ptt, Activated; Complete Time: 19:32 sb4 10/29 18:44 Order name: Magnesium; Complete Time: 19:27 sb4 10/29 18:44 Order name: Extremity Venous Uni Ltd ; Complete Time: 19:55 sb4 10/29 18:44 Order name: Troponin High Sensitivity; Complete Time: 19:27 sb4 10/29 18:45 Order name: CT Chest For PE Angio; Complete Time: 20:25 sb4 10/29 20:26 Order name: Extremity Venous Uni Ltd [facility] 10/29 21:08 Order name: LFT's la1 10/29 21:34 Order name: SARS-COV-2 Antigen Rapid 10/29 22:26 Order name: Liver (Hepatic) Function [facility] 10/29 22:47 Order name: SARS-COV-2 Antigen Rapid [facility] 10/29 18:44 Order name: Cardiac monitoring; Complete Time: 18:51 sb4 10/29 18:52 Order name: EKG - Nurse/Tech; Complete Time: 18:57 ss 10/29 21:14 Order name: US; Complete Time: 21:46 EDMS EC:34 Rate is 65 beats/min. Rhythm is regular. QRS [place] is Normal. SD interval is normal. QRS sb4 interval is normal. QT interval is normal. No Q waves. T waves are Normal. No ST changes noted. Clinical impression: Normal ECG. 19:52 Interpreted by me. Reviewed by me. sb4 Administered Medications: 19:47 Drug: Potassium Effervescent Tablet 50 mEq Route: PO; mb9 20:04 Follow up: Response: No adverse reaction mb9 23:02 Drug: Thiamine 100 mg Route: PO; jb4 23:50 Follow up: Response: No adverse reaction pf1 23:02 Drug: foLIC Acid 1 mg Route: PO; jb4 23:50 Follow up: Response: No adverse reaction pf1 23:03 Drug: Lovenox (enoxaparin) 1 mg/kg Route: Sub-Q; Site: right lower abdomen; jb4 23:50 Follow up: Response: No adverse reaction pf1 Disposition Summary: 10/29/22 20:45 Hospitalization Ordered Hospitalization Status: Observation sb4 Provider: Rodolfo Gillespie sb4 Location: Telemetry/MedSurg (observation) sb4 Condition: Fair sb4 Problem: new sb4 Symptoms: are unchanged sb4 Bed/Room Type: Standard sb4 Room Assignment: 208(10/29/22 23:09) Diagnosis - bilateral segmental branch pulmonary emboli with mild RV strain sb4 Discharge Instructions: - Discharge Summary Sheet sb4 - Deep Vein Thrombosis sb4 - Pulmonary Embolism sb4 Forms: - Medication Reconciliation Form sb4 - SBAR form sb4 Signatures: Dispatcher [employer] Seema Andrade RN RN Christiano Ball, MAINTENANCE MACHINE REPAIRER-C MAINTENANCE MACHINE REPAIRER-Cla1 Kandis Boudreaux RN RN Blair Downey RN RN jb4 Kelsey Bell PA-C PA-C sb Manda Dang RN RN mb9 Janet vanegas RN pf1 Corrections: (The following items were deleted from the chart) 18:26 18:24 Allergies: PENICILLINS; [facility] 23:09 20:45 sb4 cg
--- NOTE | 2022-10-29 21:12 | RAD REPORT ---
EXAM DESCRIPTION: US - Extremity Venous Uni Ltd - 10/29/2022 8:59 pm CLINICAL HISTORY: PAIN Leg swelling and edema. COMPARISON: Extremity Venous Uni Ltd dated 10/29/2022 FINDINGS: Left lower extremity venous system was interrogated with Doppler technique. Normal flow, c ompressibility and augmentation was noted. There is no DVT present. IMPRESSION: No evidence of left lower extremity deep venous thrombosis.
--- NOTE | 2022-10-29 21:56 | P.HP ---
Certification for Inpatient Patient admitted to: Observation With expected LOS: <2 Midnights Patient will require the following post-hospital care: None Practitioner: I am a practitioner with admitting privileges, knowledge of patient current condition, hospital course, and medical plan of care. Services: Services provided to patient in accordance with Admission requirements found in Title 42 Section 412.3 of the Code of Federal Regulations Patient History Date of Service: 10/29/22 Reason for admission: PE History of Present Illness: 52-year-old male with history of hypertension, GERD, chronic alcohol abuse presents to the emergency department with right lower extremity pain/swelling, shortness of breath that started this morning. He is evaluated in the emergency department/were significant for mild thrombocytopenia with platelet count 129 D- dimer 11,861 potassium 3.0. Ultrasound was performed to bilateral lower extremities which was negative for DVT, CT PE protocol shows moderate bilateral segmental branch pulmonary emboli with mild RV strain pattern. ED provider discussed case with pulmonology who recommends admission, therapeutic Lovenox. Patient not requiring oxygen at this time, normotensive, not not tachycardic and initial high sensitive opponent is normal. He was given therapeutic Lovenox in ED. He reports his last drink was right before he came into the emergency department, he reports he drinks about a gallon of rum every few days. We will need to monitor closely for signs of alcohol withdrawal. LFTs added to emre briseyda. Allergies PENICILLINS Allergy (Uncoded 09/22/15 09:48) Unknown Home Medications: Omeprazole Magnesium [Prilosec Otc] 1 tab PO DAILY 01/19/17 Acetaminophen with Codeine [Tylenol with Codeine #4 Tablet] 1 each PO Q4HP PRN #40 tablet 01/22/17 Ciprofloxacin HCl [Cipro 500 MG Tablet] 500 mg PO BID #20 tab 01/22/17 - Past Medical/Surgical History Diabetic: No -: hyperlipidemia -: acid reflux -: small bowel obstruction -: Alcohol use disorder -: Hypertension -: X-lap w/ small bowel resection -: tonsillectomy -: neck surgery -: ear surgery x2 Psychosocial/ Personal History: Patient lives at home with family - Family History Brother Notes: Blood clots - Social History Smoking Status: Never smoker Alcohol use: No CD- Drugs: No Caffeine use: Yes Place of Residence: Home Review of Systems 10-point ROS is otherwise unremarkable Respiratory: Shortness of Breath Physical Examination - Physical Exam General: Alert, In no apparent distress, Oriented x3 HEENT: Atraumatic, PERRLA, Mucous membr. moist/pink, EOMI, Sclerae nonicteric Neck: Supple, 2+ carotid pulse no bruit, No LAD, Without JVD or thyroid abnormality Respiratory: Clear to auscultation bilaterally, Normal air movement Cardiovascular: Regular rate/rhythm, Normal S1 S2 Capillary refill: <2 Seconds Gastrointestinal: Normal bowel sounds, No tenderness Musculoskeletal: No tenderness Integumentary: No rashes Neurological: Normal speech, Normal strength at 5/5 x4 extr, Normal tone, Normal affect - Studies Laboratory Data (last 24 hrs) 10/29/22 18:55: PT 12.3, INR 1.12, APTT 32.7 10/29/22 18:55: Sodium 136, Potassium 3.0 L, BUN 4 L, Creatinine 0.66 L, Glucose 100, Magnesium 1.8 10/29/22 18:55: WBC 5.80, Hgb 16.0, Hct 46.3, Plt Count 129 L Assessment and Plan - Plan Assessment: Bilateral PE with mild RV strain Hypokalemia Hypertension Alcohol use disorder Plan: Bilateral PE with mild RV strain Pulmonology consult, echocardiogram ordered. CT showed mild RV strain pattern present. Patient is not requiring oxygen, normotensive, nontachycardic with normal initial as this to be troponin. We will trend troponin. Continue therapeutic Lovenox. Hypokalemia Replaced in ED, protocol in place. Hypertension Continue medications Alcohol use disorder Patient reports drinking heavily, approximately 1 gallon of rum every few days. Last drink was just prior to arrival to the emergency department. INR 1.1, mild thrombocytopenia, patient reports he has been told he has elevated LFTs, fatty liver in the past. Discussed need for alcohol cessation. Alcohol withdrawal assessment/as needed Librium in place. LFTs pending. DVT PPX: Therapeutic Lovenox Code status: Full Discharge Plan: Home Plan to discharge in: 24 Hours - Advance Directives Does patient have a Living Will: No Does patient have a Durable POA for Healthcare: No - Code Status/Comfort Care Code Status Assessed: Yes (Full code) Critical Care: No Time Spent Managing Pts Care (In Minutes): 55
[2022-10-29 22:26] LABS: Albumin 3.1 g/dL (3.4-5.0); Bilirubin Direct 0.3 mg/dL (0-0.2); Bilirubin Total 0.9 mg/dL (0.2-1.0); Protein, Total 6.8 g/dL (6.4-8.2)
[2022-10-29 22:47] LABS: SARS-CoV-2 Antigen Rapid Res Negative (Negative)
[2022-10-29] MEDS ORDERED: FOLIC ACID 1 MG TABLET ONE (22:55)
[2022-10-29] MEDS ORDERED: THIAMINE HCL 100 MG TABLET ONE (22:55)
[2022-10-29] MEDS ORDERED: ENOXAPARIN 100 MG/ML SYR SQ ONE (22:56)
[2022-10-29] MEDS ORDERED: chlordiazePOXIDE HCl 5 MG CAP PO PRN (23:44)
[2022-10-30 00:22] VITALS: BMI 30.3
[2022-10-30 06:15] LABS: Specific Gravity 1.023 (1.005-1.030); Urine Bacteria None Seen /HPF (<20); Urine Bilirubin NEGATIVE (Negative); Urine Blood Negative (Negative); Urine Clarity Clear (Clear); Urine Color Light-Yellow (Yellow); Urine Glucose NEGATIVE (Negative); Urine Protein NEGATIVE (Negative); Urine RBC <5 /HPF (None Seen); Urine Urobilinogen 1+ (Normal)
[2022-10-30 06:51] LABS: Albumin 3.2 g/dL (3.4-5.0); Bilirubin Direct 0.6 mg/dL (0-0.2); Bilirubin Total 1.5 mg/dL (0.2-1.0)
[2022-10-30 07:08] LABS: Absolute Lymphocytes (CBC) 1.1 K/uL (0.7-4.9); Hematocrit 47.1 % (39.6-49.0); Lymphocytes % 25.5 % (15.3-44.8); MCV 100.8 fL (80-100); MPV 6.9 fL (7.6-11.3); RBC Red Blood Cell Count 4.68 M/uL (4.33-5.43)
[2022-10-30] MEDS ORDERED: POTASSIUM 25 MEQ EFFERV TAB PO ONE (09:00)
[2022-10-30] MEDS ORDERED: ENOXAPARIN 100 MG/ML SYR SQ SCH (09:00)
[2022-10-30] MEDS ORDERED: lisinopriL 20 MG TAB PO SCH (09:00)
[2022-10-30] MEDS ORDERED: hydroCHLOROthiazide 12.5 MG CAP PO SCH (09:00)
[2022-10-30] MEDS ORDERED: HOME MED 1 EA UNK (Lisinopril/Hydrochlorothiazide [Lisinopril-Hctz 20-12.5 Mg Tab] Tablet) PO SCH (09:00)
[2022-10-30] MEDS ORDERED: carvediloL 25 MG TAB PO SCH (09:00)
[2022-10-30 11:33] VITALS: O2SAT 94
[2022-10-30 12:05] VITALS: BP 149/101; TEMP 97.2
--- NOTE | 2022-10-30 13:05 | P.CNS ---
Date of Consult: 10/30/22 Reason for Consult: DVT and pulmonary emboli Chief Complaint: PE History of Present Illness: Is 52 years of age current history of alcohol abuse hypertension GERD admitted with acute onset of right lower leg edema and he was negative for DVT although he did have pulmonary embolism no prior history of thromboembolism currently doing well hemodynamically stable Allergies No Known Allergies Allergy (Verified 10/30/22 00:00) Home Medications: Buspirone HCl [Buspar] 10 mg PO BID 10/30/22 Carvedilol [Coreg] 25 mg PO DAILY 10/30/22 Lisinopril/Hydrochlorothiazide [Lisinopril-Hctz 20-12.5 mg Tab] 12.5 mg PO DAILY 10/30/22 - Past Medical/Surgical History Diabetic: No -: hyperlipidemia -: acid reflux -: small bowel obstruction -: Alcohol use disorder -: Hypertension -: Alcohol abuse -: X-lap w/ small bowel resection -: tonsillectomy -: neck surgery -: ear surgery x2 Psychosocial/ Personal History: Patient lives at home with family - Family History Brother Notes: Blood clots - Social History Smoking Status: Never smoker Alcohol use: Yes CD- Drugs: No Caffeine use: Yes Place of Residence: Home Review of Systems 10-point ROS is otherwise unremarkable Physical Examination Temp Pulse Resp BP Pulse Ox 97.2 F 85 16 149/101 H 97 10/30/22 12:00 10/30/22 12:00 10/30/22 12:00 10/30/22 12:00 10/30/22 12:00 General: Alert, Oriented x3 Neck: Supple Respiratory: Clear to auscultation bilaterally Cardiovascular: No edema, Normal S1 S2 Gastrointestinal: Normal bowel sounds, Soft and benign Laboratory Data (last 24 hrs) 10/30/22 05:58: Total Bilirubin 1.5 H, AST 55 H, ALT 60, Alkaline Phosphatase 76 10/30/22 05:58: WBC 4.10 L, Hgb 16.1, Hct 47.1, Plt Count 130 L 10/29/22 18:55: Total Bilirubin 0.9, AST 48 H, ALT 59, Alkaline Phosphatase 73 10/29/22 18:55: PT 12.3, INR 1.12, APTT 32.7 10/29/22 18:55: Sodium 136, Potassium 3.0 L, BUN 4 L, Creatinine 0.66 L, Glucose 100, Magnesium 1.8 10/29/22 18:55: WBC 5.80, Hgb 16.0, Hct 46.3, Plt Count 129 L - Problems (1) Pulmonary embolism Current Visit: Yes Status: Acute Plan: Patient is 52 years of age admitted with a presumed acute DVT although lower extremity Dopplers were negative and bilateral pulmonary embolism no prior risk factors he does have a history of alcohol abuse hypertension currently doing well hemodynamically stable vital signs all stable oxygenation satisfactory patient can be discharged home on Eliquis as per recommended treatment of 10 twice daily for 7 days then 5 mg twice a day follow-up with me in about 2-week echocardiogram not necessary he is not a candidate for thrombolytic therapy dynamically stable some time about alcohol as risk factor for bleeding and he also has fatty liver patient is follows up at the [facility] for his blood pressure pill Qualifiers: Acute cor pulmonale presence: unspecified
--- NOTE | 2022-10-30 17:33 | EKG ---
Test Date: 2022-10-29 Test Time: 18:39:08 Community Planner: SANDRO MEASUREMENT RESULTS: Intervals: Rate: 65 OH: 186 QRSD: 90 QT: 406 QTc: 422 [place]: P: 12 OH: 186 QRS: -22 T: 23 INTERPRETIVE STATEMENTS: Normal sinus rhythm Normal ECG Compared to ECG 01/18/2022 10:41:59 No significant changes Electronically Signed On 10-30-22 17:30:49 TOWER OBSERVER by Regan Cheng
[2022-10-30] MEDS ORDERED: APIXABAN 5 MG TABLET PO SCH (21:00)
--- NOTE | 2022-11-02 07:58 | ECHO ---
HEIGHT: 6 ft 1 in WEIGHT: 230 lb 0 oz DATE OF STUDY: 10/30/[address]: Christiano Ball NP 2-DIMENSIONAL: YES M.MODE: YES DOPPLER: YES COLOR FLOW: YES TDS: PORTABLE: YES DEFINITY: BUBBLE STUDY: DIAGNOSIS: PULMONARY EMBOLISM/ HEART STRAIN CARDIAC HISTORY: CATHERIZATION: NO SURGERY: NO PROSTHETIC VALVE: NO PACEMAKER: NO MEASUREMENTS (cm) DIASTOLIC (NORMALS) SYSTOLIC (NORMALS) IVSd 0.9 (0.6-1.2) LA Diam 3.4 (1.9-4.0) LVEF 60-65% LVIDd 4.5 (3.5-5.7) LVIDs 2.5 (2.0-3.5) %FS 45% LVPWd 1.1 (0.6-1.2) Ao Diam 4.3 (2.0-3.7) 2 DIMENSIONAL ASSESSMENT: RIGHT ATRIUM: NORMAL LEFT ATRIUM: NORMAL RIGHT VENTRICLE: NORMAL LEFT VENTRICLE: NORMAL TRICUSPID VALVE: NORMAL MITRAL VALVE: MILD MITRAL REGURGITATION PULMONIC VALVE: NORMAL AORTIC VALVE: MILD AORTIC INSUFFICIENCY PERICARDIAL EFFUSION: NONE AORTIC ROOT: NORMAL LEFT VENTRICULAR WALL MOTION: NORMAL DOPPLER/COLOR FLOW: SEE BELOW COMMENTS: 1. NORMAL LEFT VENTRICULAR EJECTION FRACTION 60-65% 2. NORMAL WALL MOTION 3. NORMAL RIGHT VENTRICULAR FUNCTION AND SIZE, NO STRAIN 4. MILD MITRAL REGURGITATION 5. MILD AORTIC INSUFFICIENCY TECHNOLOGIST: EDUARDO BUSTOS
== END 2022-10-30 15:17 | disposition home or self-care (01) | DRG 176 ==
LOC: ER 18:08 → ERHOLD 20:41 → 2ND 23:29 → OBSVTOIN 10-30 10:18
PROVIDERS: ADMIT Hospitalist; ATTEND Hospitalist
DX: I26.99 Other pulmonary embolism without acute cor pulmonale (principal); E87.6 Hypokalemia; I10 Essential (primary) hypertension; F10.10 Alcohol abuse, uncomplicated; Z71.41 Alcohol abuse counseling and surveillance of alcoholic; R60.0 Localized edema; M79.661 Pain in right lower leg; K76.0 Fatty (change of) liver, not elsewhere classified; D69.6 Thrombocytopenia, unspecified; K21.9 Gastro-esophageal reflux disease without esophagitis; E78.5 Hyperlipidemia, unspecified; Z88.0 Allergy status to penicillin; Z90.49 Acquired absence of other specified parts of digestive tract; Z28.310 Unvaccinated for COVID-19; Z20.822 Contact with and (suspected) exposure to COVID-19; Z83.2 Family history of diseases of the blood and blood-forming organs and certain disorders involving the immune mechanism
CPT/HCPCS: 36415; 71275; 80048; 80076; 81001; 83735; 84484; 85025; 85027; 85379; 85610; 85730; 87811; 93005; 93306; 93971; 96372; 99285; G0378; J1650; Q9967

== ENCOUNTER → 2023-12-15 | Emergency (ER) | payer OTHER, SELFPAY ==
[~2023-12-15] MED LIST: TDAP (DIPHTH,PERTUSS(ACELL),TET VAC) 0.5 ML VIAL IMVAC ONE
--- OUTSIDE RECORDS SUMMARY | 2023-12-15 11:01 | XMS REPORT | Continuity of Care Document ---
Author Name Unknown Address [address] [facility] [address] [place] [address] [facility] thconnect Address [address] [facility] [place] [address] Care Team Providers Care Tube Roller Name Role Phone Rita Nunez MD Primary Care Physician [phone] Doctor Unassigned, [place] Attending Clinician U Rita Robert MD Attending Clinician [phone] Katherine Parrish Attending Clinician [phone] KATHERINE HUMMEL Attending Clinician Unavailable ANALILIA MOE Attending Clinician Unavailable Analilia Pierce Attending Clinician [phone] RITA NUNEZ Attending Clinician Unavailable Janet Montenegro NP Attending Clinician [phone] Bill Alba DO Attending Clinician [phone] Guanakito Garcia DO Attending Clinician [phone] Tra Davenport MD Attending Clinician [phone] TRA DAVENPORT Attending Clinician Unavailable ANALILIA MOE Admitting Clinician Unavailable Tra Davenport MD Admitting Clinician [phone] TRA DAVENPORT Admitting Clinician Unavailable Payers Payer Name Policy Type Policy Number Effective Date Expirati on Date Source [facility] [id number] 2017 00:00:00 Problems Condition Name Condition Details Condition Category Status Onset Date Resolution Date Last Treatment Date Treating Clinician Comments Source Essential hypertensi on Essential hypertensi on Disease Active 05-14 00:00: 00 [facility] Palpitatio n Palpitatio n Disease Active 05-14 00:00: 00 [facility] Alcohol abuse Alcohol abuse Disease Active 05-14 00:00: 00 [facility] Near syncope Near syncope Disease Active 05-13 00:00: 00 [facility] Hyperlipid emia, unspecifie d hyperlipid emia type Hyperlipid emia, unspecifie d hyperlipid emia type Disease Active 05-20 00:00: 00 [facility] Elevated BP Elevated BP Disease Active 05-20 00:00: 00 [facility] Social History Social Habit Start Date Stop Date Quantity Comments Source History of tobacco use Passive smoker [facility] to SARS-CoV-2 (event) 2021-11-12 00:00:00 2021-12-12 15:42:00 Not sure [facility] History of Social function 2021-12-12 00:00:00 2021-12-12 00:00:00 [facility] Alcohol intake 2021-04-18 00:00:00 2021-04-18 00:00:00 Current drinker of alcohol (finding) [facility] History SDOH Alcohol Frequency 2020-05-14 00:00:00 2020-05-14 00:00:00 5 [facility] History SDOH Alcohol Std Drinks 2020-05-14 00:00:00 2020-05-14 00:00:00 99 [facility] History SDOH Alcohol Binge 2020-05-14 00:00:00 2020-05-14 00:00:00 99 [facility] Alcohol Comment 2020-05-14 00:00:00 2020-05-14 00:00:00 1/2 gallon every 2-3 days of rum [facility] Tobacco use and exposure 2020-05-13 00:00:00 2020-05-13 00:00:00 Smokeless tobacco non-user [facility] Sex Assigned At 1970 00:00:00 1970 00:00:00 [facility] Smoking Status Start Date Stop Date Source Never smoked tobacco [facility] Medications Ordered Medication Name Filled Medication Name Start Date Stop Date Current Medication? Ordering Clinician Indication Dosage Frequency Signature (SIG) Comments Components Source BUSPIRONE 5 mg tablet 2021-0 04-06 00:00: 00 Yes [id number] TAKE ONE TABLET BY MOUTH TWICE A DAY [facility] BUSPIRONE 5 mg tablet 2-0 - 00:00: 00 Yes [id number] TAKE ONE TABLET BY MOUTH TWICE A DAY [facility] BUSPIRONE 5 mg tablet 2-0 - 00:00: 00 Yes [id number] TAKE ONE TABLET BY MOUTH TWICE A DAY [facility] BUSPIRONE 5 mg tablet 2021-0 6- 00:00: 00 Yes [id number] TAKE ONE TABLET BY MOUTH TWICE A DAY [facility] BUSPIRONE 5 mg tablet 2021-0 - 00:00: 00 Yes [id number] TAKE ONE TABLET BY MOUTH TWICE A DAY [facility] BUSPIRONE 5 mg tablet 2-0 -31 00:00: 00 Yes [id number] TAKE ONE TABLET BY MOUTH TWICE A DAY [facility] carvediloL 12.5 mg tablet 2021-0 - 00:00: 00 Yes [id number] 12.5mg Take 1 tablet by mouth 2 (two) times daily with meals. [facility] carvediloL 12.5 mg tablet 2021-0 -31 00:00: 00 Yes [id number] 12.5mg Take 1 tablet by mouth 2 (two) times daily with meals. [facility] carvediloL 12.5 mg tablet 2021-0 -31 00:00: 00 Yes [id number] 12.5mg Take 1 tablet by mouth 2 (two) times daily with meals. [facility] carvediloL 12.5 mg tablet 2021-0 -31 00:00: 00 Yes [id number] 12.5mg Take 1 tablet by mouth 2 (two) times daily with meals. [facility] carvediloL 12.5 mg tablet 0 03-10 00:00: 00 Yes [id number] 12.5mg Take 1 tablet by mouth 2 (two) times daily with meals. [facility] carvediloL 12.5 mg tablet 0 03-10 00:00: 00 Yes [id number] 12.5mg Take 1 tablet by mouth 2 (two) times daily with meals. [facility] BUSPIRONE 5 mg tablet 03-10 00:00: 00 04-06 00:00 :00 No [id number] TAKE ONE TABLET BY MOUTH TWICE A DAY [facility] sildenafiL 50 mg tablet 2021-0 -18 00:00: 00 Yes [id number] TAKE ONE TABLET BY MOUTH DAILY NEEDED FOR ERECTILE DYSFUNCTIO N (ONE HOR BEFORE ACTIVITY) [facility] sildenafiL 50 mg tablet 2021-0 -18 00:00: 00 Yes [id number] TAKE ONE TABLET BY MOUTH DAILY NEEDED FOR ERECTILE DYSFUNCTIO N (ONE HOR BEFORE ACTIVITY) [facility] sildenafiL 50 mg tablet 2021-0 -18 00:00: 00 Yes [id number] TAKE ONE TABLET BY MOUTH DAILY NEEDED FOR ERECTILE DYSFUNCTIO N (ONE HOR BEFORE ACTIVITY) [facility] sildenafiL 50 mg tablet 2021-0 18 00:00: 00 Yes [id number] TAKE ONE TABLET BY MOUTH DAILY NEEDED FOR ERECTILE DYSFUNCTIO N (ONE HOR BEFORE ACTIVITY) [facility] sildenafiL 50 mg tablet 2021-0 18 00:00: 00 Yes [id number] TAKE ONE TABLET BY MOUTH DAILY NEEDED FOR ERECTILE DYSFUNCTIO N (ONE HOR BEFORE ACTIVITY) [facility] sildenafiL 50 mg tablet 2-0 -18 00:00: 00 Yes [id number] TAKE ONE TABLET BY MOUTH DAILY NEEDED FOR ERECTILE DYSFUNCTIO N (ONE HOR BEFORE ACTIVITY) [facility] sildenafiL 50 mg tablet 2-0 5-18 00:00: 00 Yes [id number] TAKE ONE TABLET BY MOUTH DAILY NEEDED FOR ERECTILE DYSFUNCTIO N (ONE HOR BEFORE ACTIVITY) [facility] sildenafiL 50 mg tablet 2021-0 -18 00:00: 00 Yes [id number] TAKE ONE TABLET BY MOUTH DAILY NEEDED FOR ERECTILE DYSFUNCTIO N (ONE HOR BEFORE ACTIVITY) [facility] sildenafiL 50 mg tablet 2021-0 -18 00:00: 00 Yes [id number] TAKE ONE TABLET BY MOUTH DAILY NEEDED FOR ERECTILE DYSFUNCTIO N (ONE HOR BEFORE ACTIVITY) [facility] lisinopriL 20 mg tablet 2021-0 -16 00:00: 00 Yes [id number] 20mg Take 1 tablet by mouth daily. [facility] lisinopriL 20 mg tablet 2021-0 -16 00:00: 00 Yes [id number] 20mg Take 1 tablet by mouth daily. [facility] lisinopriL 20 mg tablet 2021-0 -16 00:00: 00 Yes [id number] 20mg Take 1 tablet by mouth daily. [facility] lisinopriL 20 mg tablet 2021-0 -16 00:00: 00 Yes [id number] 20mg Take 1 tablet by mouth daily. [facility] lisinopriL 20 mg tablet 2021-0 -16 00:00: 00 Yes [id number] 20mg Take 1 tablet by mouth daily. [facility] lisinopriL 20 mg tablet 2021-0 -16 00:00: 00 Yes [id number] 20mg Take 1 tablet by mouth daily. [facility] lisinopriL 20 mg tablet 2-0 -16 00:00: 00 Yes [id number] 20mg Take 1 tablet by mouth daily. [facility] lisinopriL 20 mg tablet 2-0 -16 00:00: 00 Yes [id number] 20mg Take 1 tablet by mouth daily. [facility] lisinopriL 20 mg tablet 2-0 -16 00:00: 00 Yes [id number] 20mg Take 1 tablet by mouth daily. [facility] lisinopriL 20 mg tablet 2-0 5-16 00:00: 00 Yes [id number] 20mg Take 1 tablet by mouth daily. [facility] busPIRone 5 mg tablet 2022-0 5-03 00:00: 00 Yes [id number] 5mg Take 1 tablet by mouth 2 (two) times daily. [facility] busPIRone 5 mg tablet 2021-0 02-10 00:00: 00 Yes [id number] 5mg Take 1 tablet by mouth 2 (two) times daily. [facility] busPIRone 5 mg tablet 0 02-10 00:00: 00 Yes [id number] 5mg Take 1 tablet by mouth 2 (two) times daily. [facility] busPIRone 5 mg tablet 2021-0 02-10 00:00: 00 03-10 00:00 :00 No [id number] 5mg Take 1 tablet by mouth 2 (two) times daily. [facility] sildenafiL 50 mg tablet 2021-0 02-09 00:00: 00 Yes [id number] TAKE ONE TABLET BY MOUTH DAILY NEEDED FOR ERECTILE DYSFUNCTIO N (ONE HOR BEFORE ACTIVITY) [facility] CARVEDILOL 12.5 mg tablet 2021-0 02-09 00:00: 00 Yes [id number] TAKE ONE TABLET BY MOUTH TWICE A DAY WITH A MEAL [facility] CARVEDILOL 12.5 mg tablet 2021-0 02-09 00:00: 00 Yes [id number] TAKE ONE TABLET BY MOUTH TWICE A DAY WITH A MEAL [facility] CARVEDILOL 12.5 mg tablet 2021-0 02-09 00:00: 00 Yes [id number] TAKE ONE TABLET BY MOUTH TWICE A DAY WITH A MEAL [facility] CARVEDILOL 12.5 mg tablet 2021-0 02-09 00:00: 00 Yes [id number] TAKE ONE TABLET BY MOUTH TWICE A DAY WITH A MEAL [facility] CARVEDILOL 12.5 mg tablet 2021-0 02-09 00:00: 00 03-10 00:00 :00 No [id number] TAKE ONE TABLET BY MOUTH TWICE A DAY WITH A MEAL [facility] sildenafiL 50 mg tablet 2021-0 02-09 00:00: 00 02-25 00:00 :00 No [id number] TAKE ONE TABLET BY MOUTH DAILY NEEDED FOR ERECTILE DYSFUNCTIO N (ONE HOR BEFORE ACTIVITY) [facility] LISINOPRIL 20 mg tablet 5-02 00:00: 00 02-20 00:00 :00 No [id number] TAKE ONE TABLET BY MOUTH DAILY [facility] azithromyci n 250 mg tablet 8-16 00:00: 00 12-12 00:00 :00 No [id number] 250mg Take 1 tablet by mouth daily. Take 500 mg day 1, then 250 mg days 2 to 5. [facility] lisinopriL 10 mg tablet 7-15 00:00: 00 10-17 00:00 :00 No [id number] 10mg Take 1 tablet by mouth daily. [facility] cloNIDine 0.1 mg tablet 04-18 00:00: 00 08-19 00:00 :00 No [id number] .1mg Take 1 tablet by mouth 3 (three) times daily as needed for Other (elevated blood pressure or signs of alcohol withdrawal present). [facility] chlordiazeP OXIDE 25 mg capsule 2-04 00:00: 00 12-12 00:00 :00 No [id number] 25mg Take 1 capsule by mouth 3 (three) times daily as needed for Anxiety. [facility] Procedures Procedure Date / Time Performed Performing Clinicia n Source EXTERNAL PROVIDER RECORDS 2022-11-12 06:01:00 Doctor Unassigned, [place] [facility] REFERRAL- REQUEST/RESPONSE 2022-03-12 05:01:00 Doctor Unassigned, [place] [facility] Encounters Start Date/Time End Date/Time Encounter Type Admission Type Attending Clinicians Care Facility Care Department Encounter ID Source 2021-08-11 07:07:02 Emergency [facility] [id number] [facility] 2023-12-11 09:15:14 2023-12-11 09:15:14 Outpatient [facility] [id number] Adonay Maher 2023-12-07 15:48:00 2023-12-07 15:48:00 Outpatient [facility] [id number] Adonay Maher 2023-08-16 08:48:08 2023-08-16 08:48:08 Outpatient [facility] [id number] Adonay Maher 2023-08-07 09:09:32 2023-08-07 09:09:32 Outpatient [facility] [id number] Adonay Maher 2023-08-03 15:52:31 2023-08-03 15:52:31 Outpatient [facility] [id number] Adonay Maher 2023-03-20 09:14:36 2023-03-20 09:14:36 Outpatient [facility] [id number] Adonay Maher 2023-03-16 15:37:05 2023-03-16 15:37:05 Outpatient [facility] [id number] Adonay Maher 2022-11-23 16:08:56 2022-11-23 16:08:56 Outpatient [facility] [id number] Adonay Maher 2022-11-12 00:00:00 2022-11-12 00:00:00 Orders Only Doctor Unassigned, [place] [facility] 1.2.840.114 350.1.13.10 4.2.7.2.686 [id number] [facility] 2022-10-30 00:00:00 2022-10-30 00:00:00 Telephone [facility] 1.2.840.114 350.1.13.10 4.2.7.2.686 [id number] [facility] 2022-10-26 11:15:00 2022-10-26 11:15:00 Outpatient [facility] [id number] Adonay Maher 2022-08-19 16:09:00 2022-08-19 16:09:00 Outpatient [facility] [id number] Adonay Maher 2022-08-12 08:47:57 2022-08-12 08:47:57 Outpatient [facility] [id number] Adonay Maher 2022-07-22 15:48:14 2022-07-22 15:48:14 Outpatient [facility] [id number] Adonay Maher 2022-05-24 00:00:00 2022-05-24 00:00:00 Patient Secure Msg Doctor Unassigned, [place] [facility] 1.20.114 350.1.13.10 4.2.7.2.686 [id number] [facility] 2022-04-05 00:00:00 2022-04-05 00:00:00 Refill Enrique [facility] TEJAS?[facility] 1.0.114 350.1.13.10 4.2.7.2.686 [id number] [facility] 2022-03-12 00:00:00 2022-03-12 00:00:00 Orders Only Doctor Unassigned, [place] [facility] 1.20.114 350.1.13.10 4.2.7.2.686 [id number] [facility] 2022-03-10 00:00:00 2022-03-10 00:00:00 Refill Nunez [facility] TEJAS?[facility] 1..114 350.1.13.10 4.2.7.2.686 [id number] [facility] 2022-03-10 00:00:00 2022-03-10 00:00:00 Refill Nunez [facility] TEJAS?[facility] 1.0.114 350.1.13.10 4.2.7.2.686 [id number] [facility] 2022-03-06 00:00:00 2022-03-06 00:00:00 Refill Nunez [facility] TEJAS?[facility] 1.840.114 350.1.13.10 4.2.7.2.686 [id number] [facility] 2022-02-25 00:00:00 2022-02-25 00:00:00 Refill Rita Nunez [facility] LAZARO?[facility] 1.2840.114 350.1.13.10 4.2.7.2.686 [id number] [facility] 2022-02-20 00:00:00 2022-02-20 00:00:00 Refill Rita Nunez [facility] LAZ[facility] 1.2840.114 350.1.13.10 4.2.7.2.686 [id number] [facility] 2022-02-20 00:00:00 2022-02-20 00:00:00 Refill Doctor Unassigned, [place] [facility] LAZARO?[facility] 1.2840.114 350.1.13.10 4.2.7.2.686 [id number] [facility] 2022-02-20 00:00:00 2022-02-20 00:00:00 Refill Katherine Hummel [facility] 1.2840.114 350.1.13.10 4.2.7.2.686 [id number] [facility] 2022-02-10 00:00:00 2022-02-10 00:00:00 Refill Katherine Hummel [facility] 1.2840.114 350.1.13.10 4.2.7.2.686 [id number] [facility] 2022-02-08 00:00:00 2022-02-08 00:00:00 Refill Rita Nunez [facility] 1.2840.114 350.1.13.10 4.2.7.2.686 [id number] [facility] 2022-02-07 00:00:00 2022-02-07 00:00:00 Refill Katherine Hummel [facility] TEJAS?[facility] 1.114 350.1.13.10 4.2.7.2.686 [id number] [facility] 2022-02-07 00:00:00 2022-02-07 00:00:00 Refill Nunez Rita [facility] TEJAS?[facility] 1.114 350.1.13.10 4.2.7.2.686 [id number] [facility] 2022-02-04 00:00:00 2022-02-04 00:00:00 Orders Only Doctor Unassigned, [place] [facility] 1.114 350.1.13.10 4.2.7.2.686 [id number] [facility] 2022-01-19 00:00:00 2022-01-19 00:00:00 Telephone Enrique Rita [facility] TEJAS?[facility] 1.114 350.1.13.10 4.2.7.2.686 [id number] [facility] 2022-01-10 00:00:00 2022-01-10 00:00:00 Refill Doctor Unassigned, [place] [facility] ONE 1.114 350.1.13.10 4.2.7.2.686 [id number] [facility] 2022-01-08 00:00:00 2022-01-08 00:00:00 Refill EmelyKatherine [facility] TEJAS?[facility] 1.114 350.1.13.10 4.2.7.2.686 [id number] [facility] 2021-12-31 00:00:00 2021-12-31 00:00:00 Refill Rita Nunez [facility] ONE 1..114 350.1.13.10 4.2.7.2.686 [id number] [facility] 2021-12-29 00:00:00 2021-12-29 00:00:00 Refill Doctor Unassigned, [place] [facility] ONE 1..114 350.1.13.10 4.2.7.2.686 [id number] [facility] 2021-12-29 00:00:00 2021-12-29 00:00:00 Patient Secure Msg Doctor Unassigned, [place] [facility] TEJAS[facility] 1.0.114 350.1.13.10 4.2.7.2.686 [id number] [facility] 2021-12-24 00:00:00 2021-12-24 00:00:00 Refill Doctor Unassigned, [place] [facility] ONE .114 350.1.13.10 4.2.7.2.686 [id number] [facility] 2021-12-22 00:00:00 2021-12-22 00:00:00 Patient Secure Msg Doctor Unassigned, [place] [facility] 1.0.114 350.1.13.10 4.2.7.2.686 [id number] [facility] 2021-12-14 00:00:00 2021-12-14 00:00:00 Refill Doctor Unassigned, [place] [facility] ONE 1.2.840.114 350.1.13.10 4.2.7.2.686 [id number] [facility] 2021-12-14 00:00:00 2021-12-14 00:00:00 Refill Doctor Unassigned, [place] [facility] ONE 1.840.114 350.1.13.10 4.2.7.2.686 [id number] [facility] 2021-12-12 16:00:00 2021-12-12 16:28:37 Outpatient R KATHERINE HUMMEL [facility] [id number] [facility] 2021-12-12 00:00:00 2021-12-12 00:00:00 Refill Doctor Unassigned, [place] [facility] ONE 1.0.114 350.1.13.10 4.2.7.2.686 [id number] [facility] 2021-12-02 00:00:00 2021-12-02 00:00:00 Refill Doctor Unassigned, [place] [facility] ONE .0.114 350.1.13.10 4.2.7.2.686 [id number] [facility] 2021-11-22 00:00:00 2021-11-22 00:00:00 Refill Doctor Unassigned, [place] [facility] ONE .0.114 350.1.13.10 4.2.7.2.686 [id number] [facility] 2021-11-22 00:00:00 2021-11-22 00:00:00 Refill Doctor Unassigned, [place] [facility] ONE .840.114 350.1.13.10 4.2.7.2.686 [id number] [facility] 2021-11-22 00:00:00 2021-11-22 00:00:00 [facility] 1.2840.114 350.1.13.10 4.2.7.2.686 [id number] [facility] 2021-11-20 00:00:00 2021-11-20 00:00:00 Refill Rita Nunez [facility] ONE 1.2840.114 350.1.13.10 4.2.7.2.686 [id number] 044 [id number] [facility] 2021-11-10 00:00:00 2021-11-10 00:00:00 Refill Enrique [facility] OFF[facility]ILD[facility] ONE 1.2840.114 350.1.13.10 4.2.7.2.686 [id number] [facility] 2021-11-07 00:00:00 2021-11-07 00:00:00 Refill Doctor Unassigned, [place] [facility] ONE 1.840.114 350.1.13.10 4.2.7.2.686 [id number] [facility] 2021-10-26 00:00:00 2021-10-26 00:00:00 Refill Rita Nunez [facility] ONE 1.2840.114 350.1.13.10 4.2.7.2.686 [id number] [facility] 2021-10-17 00:00:00 2021-10-17 00:00:00 Refill Doctor Unassigned, [place] [facility] ONE 1.840.114 350.1.13.10 4.2.7.2.686 [id number] [facility] 2021-10-05 00:00:00 2021-10-05 00:00:00 Refill Rita Nunez [facility] 1.2840.114 350.1.13.10 4.2.7.2.686 [id number] [id number] [facility] 2021-09-22 00:00:00 2021-09-22 00:00:00 Refill Doctor Unassigned, [place] [facility] 1.2840.114 350.1.13.10 4.2.7.2.686 [id number] [facility] 2021-09-18 00:00:00 2021-09-18 00:00:00 Refill Rita Nunez [facility] 1.2840.114 350.1.13.10 4.2.7.2.686 [id number] [facility] 2021-09-10 00:00:00 2021-09-10 00:00:00 Refill Rita Nunez [facility] 1.2840.114 350.1.13.10 4.2.7.2.686 [id number] [facility] 2021-09-02 00:00:00 2021-09-02 00:00:00 Refill Rita Nunez [facility] 1.2840.114 350.1.13.10 4.2.7.2.686 [id number] [id number] [facility] 2021-08-20 00:00:00 2021-08-20 00:00:00 Refill Rita Nunez [facility] 1.2840.114 350.1.13.10 4.2.7.2.686 [id number] [facility] 2021-08-19 00:00:00 2021-08-19 00:00:00 Refill Doctor Unassigned, [place] [facility] ONE 1.114 350.1.13.10 4.2.7.2.686 [id number] [facility] 2021-08-18 00:00:00 2021-08-18 00:00:00 Patient Secure Msrobert Enrique [facility] TEJAS[facility] 1.114 350.1.13.10 4.2.7.2.686 [id number] [facility] 2021-08-13 12:31:00 2021-08-13 14:24:00 Emergency X ANALILIA MOE [facility] [id number] [facility] 2021-08-13 12:31:00 2021-08-13 14:24:00 Emergency Analilia Moe S [facility] 1.114 350.1.13.10 4.2.7.2.686 [id number] [facility] 2021-08-08 00:00:00 2021-08-08 00:00:00 Refill Enrique Rita [facility] ONE .114 350.1.13.10 4.2.7.2.686 [id number] [facility] 2021-07-28 00:00:00 2021-07-28 00:00:00 Orders Only Doctor Unassigned, [place] [facility] 1.114 350.1.13.10 4.2.7.2.686 [id number] [facility] 2021-07-27 00:00:00 2021-07-27 00:00:00 Refill Enrique Rita [facility] Office Building One 1.0.114 350.1.13.10 4.2.7.2.686 [id number] [id number] [facility] 2021-06-20 00:00:00 2021-06-20 00:00:00 Refill Enrique [facility] 1.840.114 350.1.13.10 4.2.7.2.686 [id number] [facility] 2021-06-07 00:00:00 2021-06-07 00:00:00 Refill Enrique [facility] 1.0.114 350.1.13.10 4.2.7.2.686 [id number] [id number] [facility] 2021-06-05 00:00:00 2021-06-05 00:00:00 Patient Secure Msg Doctor Unassigned, [place] [facility] 1..114 350.1.13.10 4.2.7.2.686 [id number] [facility] 2021-05-26 15:00:00 2021-05-26 15:00:00 Outpatient R RITA NUNEZ [facility] [id number] [facility] 2021-05-09 00:00:00 2021-05-09 00:00:00 Refill Enrique [facility] 1..114 350.1.13.10 4.2.7.2.686 [id number] [id number] [facility] 2021-04-24 14:16:08 2021-04-24 14:31:08 Office Visit Rita Nunez [facility] 1.0.114 350.1.13.10 4.2.7.2.686 [id number] [id number] [facility] 2021-04-24 14:15:00 2021-04-24 14:15:00 Outpatient RITA BLACK [facility] [id number] [facility] 2021-04-24 00:00:00 2021-04-24 00:00:00 Orders Only Doctor Unassigned, [place] [facility] 1.2840.114 350.1.13.10 4.2.7.2.686 [id number] [facility] 2021-04-18 12:04:00 2021-04-18 15:40:00 Emergency Janet Montenegro [facility] 1.2840.114 350.1.13.10 4.2.7.2.686 [id number] [facility] 2021-04-18 00:00:00 2021-04-18 00:00:00 Orders Only Doctor Unassigned, [place] [facility] 1.2840.114 350.1.13.10 4.2.7.2.686 [id number] [facility] 2021-04-09 00:00:00 2021-04-09 00:00:00 Genet Nunez [facility] Office Building One 1.114 350.1.13.10 4.2.7.2.686 [id number] [facility] 2021-03-18 00:00:00 2021-03-18 00:00:00 Rita Underwood [facility] Office Building One .114 350.1.13.10 4.2.7.2.686 [id number] [facility] 2021-02-01 00:00:00 2021-02-01 00:00:00 Genet Nunez [facility] Office Building One 1.840.114 350.1.13.10 4.2.7.2.686 [id number] [facility] 2020-12-24 00:00:00 2020-12-24 00:00:00 Patient Outreach Bill Alba [facility] 1.840.114 350.1.13.10 4.2.7.2.686 [id number] [facility] 2020-11-14 15:00:00 2020-11-14 15:00:00 Outpatient R RITA NUNEZ [facility] [id number] [facility] 2020-11-14 14:43:05 2020-11-14 14:58:05 Office Visit Enrique Rita [facility] Office Building One .0.114 350.1.13.10 4.2.7.2.686 [id number] [facility] 2020-11-14 00:00:00 2020-11-14 00:00:00 Telephone Enrique [facility] Office Building One ..114 350.1.13.10 4.2.7.2.686 [id number] [facility] 2020-11-14 00:00:00 2020-11-14 00:00:00 Refill Doctor Unassigned, [place] [facility] Office Building One .0.114 350.1.13.10 4.2.7.2.686 [id number] [id number] [facility] 2020-08-15 00:00:00 2020-08-15 00:00:00 Refill Nunez [facility] Office Building One .840.114 350.1.13.10 4.2.7.2.686 [id number] [facility] 2020-05-27 00:00:00 2020-05-27 00:00:00 Orders Only Doctor Unassigned, [place] [facility] 1.2.840.114 350.1.13.10 4.2.7.2.686 [id number] [facility] 2020-05-21 10:00:00 2020-05-21 10:00:00 Outpatient R ENRIQUE RITA [facility] [id number] [facility] 2020-05-21 07:50:19 2020-05-21 08:05:19 Telemedici ne Visit Enrique [facility] Building 1.2.840.114 350.1.13.10 4.2.7.2.686 [id number] [facility] 2020-05-13 14:31:00 2020-05-14 13:14:00 Emergency [place] Garcia [facility] 1.2.840.114 350.1.13.10 4.2.7.2.686 [id number] [facility] 2020-05-14 00:00:00 2020-05-14 00:00:00 Telephone Rita Nunez [facility] Office Building One 1.2.840.114 350.1.13.10 4.2.7.2.686 [id number] [facility] 2020-05-13 14:31:00 2020-05-13 14:31:00 Outpatient TRA [facility] [id number] [facility] Results Test Description Test Time Test Comments Results Result Co mments Source COMPREHENSIVE METABOLIC [id number] 00:25:39* Test Item Value Reference Range Interpretation Comme nts GLUCOSE (test code = 2217) 104 MG/DL 70-99 H BUN (test code = 2208) 12 MG/DL 6-20 CREATININE (test code = 2214) 0.87 MG/DL 0.80-1.40 eGFR (2020 CKD-EPI) (test code = 78765) 102 ML/MIN/1.73 >60 CALC BUN/CREAT (test code = 223) 14 RATIO 6-28 SODIUM (test code = 223) 133 MEQ/L 133-146 POTASSIUM (test code = 2227) 4.2 MEQ/L 3.5-5.4 CHLORIDE (test code = 2214) 93 MEQ/L 95-107 L CARBON DIOXIDE (test code = 2205) 23 MEQ/L 19-31 CALCIUM (test code = 2208) 9.5 MG/DL 8.5-10.5 PROTEIN, TOTAL (test code = 2228) 7.0 G/DL 6.1-8.3 ALBUMIN (test code = 2200) 4.6 G/DL 3.5-5.2 CALC GLOBULIN (test code = 2239) 2.4 G/DL 1.9-3.7 CALC A/G RATIO (test code = 2233) 1.9 RATIO 1.0-2.6 BILIRUBIN, TOTAL (test code = 2206) 0.7 MG/DL <=1.2 ALKALINE PHOSPHATASE (test code = 2203) 65 U/L 40-121 AST (test code = 221) 74 U/L 9-50 H ALT (test code = 221) 103 U/L 5-50 H UNLESS OTHERWISE INDICATED, ALL TESTING PERFORMED AT [facility] [address] [place] [address] DIECAST MACHINE OPERATOR: RAZ VELIZ M.D. CLIA NUMBER [id number] [facility] [place]. [id number] HEMOGLOBIN [id number] 03:55:32* Test Item Value Reference Range Interpretation Comme nts HEMOGLOBIN A1c (test code = 18920) 5.0 % 4.2-5.6 CBC W/AUTO DIFF WITH [id number] 02:34:21* Test Item Value Reference Range Interpretation Comme nts WBC (test code = 1001) 4.0 K/UL 3.5-11.0 RBC (test code = 1002) 4.89 M/UL 4.50-6.10 HEMOGLOBIN (test code = 1003) 15.4 G/DL 13.5-17.0 HEMATOCRIT (test code = 1004) 46.0 % 40.0-51.0 MCV (test code = 1005) 94.1 fL 80.0-99.0 MCH (test code = 1006) 31.5 PG 25.0-33.0 MCHC (test code = 1007) 33.5 G/DL 31.0-36.0 RDW (test code = 1038) 12.5 % 11.5-15.0 NEUTROPHILS (test code = 1008) 53.5 % LYMPHOCYTES (test code = 1010) 27.4 % MONOCYTES (test code = 1011) 14.3 % EOSINOPHILS (test code = 1012) 2.8 % BASOPHILS (test code = 1013) 1.0 % IMMATURE GRANULOCYTES (test code = 1036) 1.0 % NUCLEATED RBCS (test code = 1065) 0.0 /100 WBC'S See_Comment [Automated Mylaa ge] The system which generated this result transmitted reference range: 0.0. The reference range was not used to interpret this result as normal/abnormal. PLATELET COUNT (test code = 1015) 144 K/UL 130-400 ABSOLUTE NEUTROPHILS (test code = 1066) 2.13 K/UL 1.50-7.50 ABSOLUTE LYMPHOCYTES (test code = 1067) 1.09 K/UL 1.00-4.00 ABSOLUTE MONOCYTES (test code = 1068) 0.57 K/UL 0.20-1.00 ABSOLUTE EOSINOPHILS (test code = 1040) 0.11 K/UL 0.00-0.50 ABSOLUTE BASOPHILS (test code = 1069) 0.04 K/UL 0.00-0.20 ABS IMMATURE GRANULOCYTES (test code = 1020) 0.04 K/UL 0.00-0.10 ABS NUCLEATED RBCS (test code = 36264) 0.00 K/UL 0.00-0.11 LIPID [id number] 01:43:07* Test Item Value Reference Range Interpretation Comme nts CHOLESTEROL (test code = 2210) 247 MG/DL <200 H TRIGLYCERIDES (test code = 2232) 239 MG/DL <150 H HDL CHOLESTEROL (test code = 2220) 45 MG/DL >39 CALC LDL CHOL (test code = 2237) 161 MG/DL <100 H NOTE: CALCULATED LDL IS BASED ON SUE-KU METHOD WHICHINCLUDES ADJUSTABLE TRIGLYCERIDE:VLDL CHOLESTEROL RATIO.THIS FACTOR VARIES BY MEASURED TRIGLYCERIDE AND NON-HDLCHOLESTEROL CONCENTRATIONS WITH INCREASED CALCULATED LDL SEENIN HIGHER TRIGLYCERIDE OR LOWER NON-HDL SPECIMENS. FOR MOREINFORMATION, SEE CLIENT ANNOUNCEMENT AT [email or web address] RISK RATIO LDL/HDL (test code = 2237) 3.58 RATIO <3.55 H COMPREHENSIVE METABOLIC [id number] 01:43:07* Test Item Value Reference Range Interpretation Comme nts GLUCOSE (test code = 2216) 88 MG/DL 70-99 BUN (test code = 2207) 8 MG/DL 6-20 CREATININE (test code = 2213) 0.86 MG/DL 0.80-1.40 eGFR (2020 CKD-EPI) (test code = 87099) 103 ML/MIN/1.73 >60 CALC BUN/CREAT (test code = 2234) 9 RATIO 6-28 SODIUM (test code = 2230) 139 MEQ/L 133-146 POTASSIUM (test code = 2227) 4.0 MEQ/L 3.5-5.4 CHLORIDE (test code = 2214) 99 MEQ/L 95-107 CARBON DIOXIDE (test code = 2205) 24 MEQ/L 19-31 CALCIUM (test code = 2208) 9.5 MG/DL 8.5-10.5 PROTEIN, TOTAL (test code = 2228) 7.0 G/DL 6.1-8.3 ALBUMIN (test code = 2200) 4.5 G/DL 3.5-5.2 CALC GLOBULIN (test code = 0) 2.5 G/DL 1.9-3.7 CALC A/G RATIO (test code = 2233) 1.8 RATIO 1.0-2.6 BILIRUBIN, TOTAL (test code = 2206) 0.4 MG/DL <=1.2 ALKALINE PHOSPHATASE (test code = 2203) 59 U/L 40-121 AST (test code = 2217) 116 U/L 9-50 H ALT (test code = 2218) 115 U/L 5-50 H HEMOGLOBIN [id number] 02:45:54* Test Item Value Reference Range Interpretation Comme nts HEMOGLOBIN A1c (test code = 36638) 5.3 % 4.2-5.6 UNLESS OTHERWISE INDICATED, ALL TESTING PERFORMED AT [facility] [address] [place] [address] DIECAST MACHINE OPERATOR: RAZ VELIZ M.D. CLIA NUMBER [id number] [place]. [id number] COMPREHENSIVE METABOLIC [id number] 03:20:31* Test Item Value Reference Range Interpretation Comme nts GLUCOSE (test code = 2216) 70 MG/DL 70-99 BUN (test code = 2207) 5 MG/DL 6-20 L CREATININE (test code = 2213) 0.74 MG/DL 0.80-1.40 L eGFR (2020 CKD-EPI) (test code = ) 108 ML/MIN/1.73 >60 CALC BUN/CREAT (test code = 2234) 7 RATIO 6-28 SODIUM (test code = 2230) 145 MEQ/L 133-146 POTASSIUM (test code = 8) 3.5 MEQ/L 3.5-5.4 CHLORIDE (test code = 2214) 101 MEQ/L 95-107 CARBON DIOXIDE (test code = 6) 24 MEQ/L 19-31 CALCIUM (test code = 2208) 9.5 MG/DL 8.5-10.5 PROTEIN, TOTAL (test code = 2228) 7.3 G/DL 6.1-8.3 ALBUMIN (test code = 2200) 4.2 G/DL 3.5-5.2 CALC GLOBULIN (test code = 2240) 3.1 G/DL 1.9-3.7 CALC A/G RATIO (test code = 2233) 1.4 RATIO 1.0-2.6 BILIRUBIN, TOTAL (test code = 2206) 0.7 MG/DL See_Comment [Automated me ssage] The system which generated this result transmitted reference range: <=1.2. The reference range was not used to interpret this result as normal/abnormal. ALKALINE PHOSPHATASE (test code = 2203) 92 U/L 40-121 AST (test code = 2218) 95 U/L 9-50 H ALT (test code = 2219) 90 U/L 5-50 H LIPID [id number] 03:20:31* Test Item Value Reference Range Interpretation Comme nts CHOLESTEROL (test code = 2210) 255 MG/DL <200 H TRIGLYCERIDES (test code = 2232) 160 MG/DL <150 H HDL CHOLESTEROL (test code = 2220) 54 MG/DL >39 CALC LDL CHOL (test code = 2236) 170 MG/DL <100 H NOTE: CALCULATED LDL IS BASED ON SUE-KU METHOD WHICHINCLUDES ADJUSTABLE TRIGLYCERIDE:VLDL CHOLESTEROL RATIO.THIS FACTOR VARIES BY MEASURED TRIGLYCERIDE AND NON-HDLCHOLESTEROL CONCENTRATIONS WITH INCREASED CALCULATED LDL SEENIN HIGHER TRIGLYCERIDE OR LOWER NON-HDL SPECIMENS. FOR MOREINFORMATION, SEE CLIENT ANNOUNCEMENT AT [email or web address] RISK RATIO LDL/HDL (test code = 2238) 3.15 RATIO <3.55 UNLESS OTHERW ISE INDICATED, ALL TESTING PERFORMED [facility] [address] [place] [address] DIECAST MACHINE OPERATOR: CARMELO ZARAGOZA M.D. CLIA NUMBER [id number] [facility] [place]. [id number] 03:19:56* Test Item Value Reference Range Interpretation Comme nts GGT (test code = 2216) 84 U/L <60 H [id number] 07:48:26* Test Item Value Reference Range Interpretation Comme nts GGT (test code = 2216) 210 U/L <60 H COMPREHENSIVE METABOLIC [id number] 07:45:07* Test Item Value Reference Range Interpretation Comme nts GLUCOSE (test code = 2217) 87 MG/DL 70-99 BUN (test code = 8) 5 MG/DL 6-20 L CREATININE (test code = 2214) 0.86 MG/DL 0.80-1.40 eGFR (2020 CKD-EPI) (test code = 36804) 104 ML/MIN/1.73 >60 CALC BUN/CREAT (test code = 2235) 6 RATIO 6-28 SODIUM (test code = 223) 140 MEQ/L 133-146 POTASSIUM (test code = 2228) 3.9 MEQ/L 3.5-5.4 CHLORIDE (test code = 2215) 101 MEQ/L 95-107 CARBON DIOXIDE (test code = 220) 25 MEQ/L 19-31 CALCIUM (test code = 220) 9.1 MG/DL 8.5-10.5 PROTEIN, TOTAL (test code = 2228) 7.1 G/DL 6.1-8.3 ALBUMIN (test code = 2200) 4.4 G/DL 3.5-5.2 CALC GLOBULIN (test code = 224) 2.7 G/DL 1.9-3.7 CALC A/G RATIO (test code = 2234) 1.6 RATIO 1.0-2.6 BILIRUBIN, TOTAL (test code = 2207) 1.3 MG/DL See_Comment H [Automated me ssage] The system which generated this result transmitted reference range: <=1.2. The reference range was not used to interpret this result as normal/abnormal. ALKALINE PHOSPHATASE (test code = 2204) 60 U/L 40-121 AST (test code = 2218) 126 U/L 9-50 H ALT (test code = 2219) 102 U/L 5-50 H HEPATITIS PANEL, [id number] 06:33:52* Test Item Value Reference Range Interpretation Comme nts HEPATITIS A IgM (test code = 23794) NON-REACTIVE NON-REACTIVE HEPATITIS B CORE IgM (test code = 4644) NON-REACTIVE NON-REACTIVE HEPATITIS B SURF AG (test code = 2739) NON-REACTIVE NON-REACTIVE HEPATITIS C ANTIBODY (test code = 4675) NON-REACTIVE NON-REACTIVE INTERPRETATION HEPATITIS A: (test code = 2552) (NOTE) Hepatitis A sero logy shows no evidence of acute hepatitis A. INTERPRETATION HEPATITIS B: (test code = 77992) (NOTE) Hepatitis B sero logy shows no evidence of acute hepatitis B andno indication of exposure to hepatitis B virus in the previous hailee eight months. INTERPRETATION HEPATITIS C: (test code = 97166) (NOTE) Hepatitis C sero logy shows no evidence of exposure to hepatitisC virus at this time. It can take up to 12 months after exposure tothe hepatitis C virus for antibodies to become detectable in the blood in certain patients. UNLESS OTHERWISE INDICATED, ALL TESTING PERFORMED [facility] [address] [place] [address] DIECAST MACHINE OPERATOR: CARMELO ZARAGOZA M.D. CLIA NUMBER [id number] [place]. [id number] VITAMIN [id number] 01:43:21* Test Item Value Reference Range Interpretation Comme [facility] VITAMIN B-12 (test code = 2840) 340 PG/ML 200-950 UNLESS OTHERWISE INDICATED, ALL TESTING PERFORMED [facility] [address] [place] [address] DIECAST MACHINE OPERATOR: CARMELO ZARAGOZA M.D. CLIA NUMBER [id number] [place]. [id number] PSA, [id number] 06:56:39* Test Item Value Reference Range Interpretation Comme nts PSA, TOTAL (test code = 2606) 1.00 NG/ML See_Comment NOTE: Methodolog y is Scarlett Yen Electrochemiluminescence Immunoassay traceable to WHO reference standard 96/760. UNLESS OTHERWISE INDICATED, ALL TESTING PERFORMED [facility] [address] [place] [address] DIECAST MACHINE OPERATOR: CARMELO ZARAGOZA M.D. [place] NUMBER [id number] [facility] [place]. [id number] [Automated message] The system which generated this result transmitted reference range: <=4.00. The reference range was not used to interpret this result as normal/abnormal. COMPREHENSIVE METABOLIC [id number] 04:26:33* Test Item Value Reference Range Interpretation Comme nts GLUCOSE (test code = 2217) 87 MG/DL 70-99 BUN (test code = 2208) 12 MG/DL 6-20 CREATININE (test code = 2214) 1.19 MG/DL 0.80-1.40 eGFR (2020 CKD-EPI) (test code = 15775) 73 ML/MIN/1.73 >60 CALC BUN/CREAT (test code = 2235) 10 RATIO 6-28 SODIUM (test code = 2231) 133 MEQ/L 133-146 POTASSIUM (test code = 2228) 4.2 MEQ/L 3.5-5.4 CHLORIDE (test code = 2215) 94 MEQ/L 95-107 L CARBON DIOXIDE (test code = 2206) 25 MEQ/L 19-31 CALCIUM (test code = 2209) 10.0 MG/DL 8.5-10.5 PROTEIN, TOTAL (test code = 2229) 7.5 G/DL 6.1-8.3 ALBUMIN (test code = 2201) 4.9 G/DL 3.5-5.2 CALC GLOBULIN (test code = 2240) 2.6 G/DL 1.9-3.7 CALC A/G RATIO (test code = 2234) 1.9 RATIO 1.0-2.6 BILIRUBIN, TOTAL (test code = 2207) 0.9 MG/DL See_Comment [Automated me ssage] The system which generated this result transmitted reference range: <=1.2. The reference range was not used to interpret this result as normal/abnormal. ALKALINE PHOSPHATASE (test code = 2204) 66 U/L 40-121 AST (test code = 2218) 161 U/L 9-50 H ALT (test code = 2219) 154 U/L 5-50 H CBC W/AUTO DIFF WITH [id number] 03:41:51* Test Item Value Reference Range Interpretation Comme nts WBC (test code = 1001) 4.6 K/UL 3.5-11.0 RBC (test code = 1002) 4.74 M/UL 4.50-6.10 HEMOGLOBIN (test code = 1003) 15.4 G/DL 13.5-17.0 HEMATOCRIT (test code = 1004) 43.4 % 40.0-51.0 MCV (test code = 1005) 91.6 fL 80.0-99.0 MCH (test code = 1006) 32.5 PG 25.0-33.0 MCHC (test code = 1007) 35.5 G/DL 31.0-36.0 RDW (test code = 1038) 18.3 % 11.5-15.0 H NEUTROPHILS (test code = 1008) 46.9 % LYMPHOCYTES (test code = 1010) 32.6 % MONOCYTES (test code = 1011) 17.4 % EOSINOPHILS (test code = 1012) 1.5 % BASOPHILS (test code = 1013) 0.9 % IMMATURE GRANULOCYTES (test code = 1036) 0.7 % NUCLEATED RBCS (test code = 1065) 0.0 /100 WBC'S See_Comment [Automated Mylaa ge] The system which generated this result transmitted reference range: 0.0. The reference range was not used to interpret this result as normal/abnormal. PLATELET COUNT (test code = 1015) 192 K/UL 130-400 ABSOLUTE NEUTROPHILS (test code = 1066) 2.16 K/UL 1.50-7.50 ABSOLUTE LYMPHOCYTES (test code = 1067) 1.50 K/UL 1.00-4.00 ABSOLUTE MONOCYTES (test code = 1068) 0.80 K/UL 0.20-1.00 ABSOLUTE EOSINOPHILS (test code = 1040) 0.07 K/UL 0.00-0.50 ABSOLUTE BASOPHILS (test code = 1069) 0.04 K/UL 0.00-0.20 ABS IMMATURE GRANULOCYTES (test code = 1020) 0.03 K/UL 0.00-0.10 ABS NUCLEATED RBCS (test code = 25975) 0.00 K/UL 0.00-0.11 TSH, THIRD [id number] 06:26:55* Test Item Value Reference Range Interpretation Comme nts TSH, THIRD GENERATION (test code = 2821) 1.200 UIU/ML 0.400-4.100 UNLESS OTHERWISE INDICATED, ALL TESTING PERFORMED [facility] [address] [place] [address] DIECAST MACHINE OPERATOR: CARMELO ZARAGOZA M.D. CLIA NUMBER [id number] [facility] [place]. [id number] CBC W/AUTO DIFF WITH [id number] 09:03:53* Test Item Value Reference Range Interpretation Comme nts WBC (test code = 1001) 4.4 K/UL 3.5-11.0 RBC (test code = 1002) 4.66 M/UL 4.50-6.10 HEMOGLOBIN (test code = 1003) 12.7 G/DL 13.5-17.0 L HEMATOCRIT (test code = 1004) 39.3 % 40.0-51.0 L MCV (test code = 1005) 84.3 fL 80.0-99.0 MCH (test code = 1006) 27.3 PG 25.0-33.0 MCHC (test code = 1007) 32.3 G/DL 31.0-36.0 RDW (test code = 1038) 14.4 % 11.5-15.0 NEUTROPHILS (test code = 1008) 53.3 % LYMPHOCYTES (test code = 1010) 30.6 % MONOCYTES (test code = 1011) 13.1 % EOSINOPHILS (test code = 1012) 2.1 % BASOPHILS (test code = 1013) 0.7 % IMMATURE GRANULOCYTES (test code = 1036) 0.2 % NUCLEATED RBCS (test code = 1065) 0.0 /100 WBC'S See_Comment [Automated messa ge] The system which generated this result transmitted reference range: 0.0. The reference range was not used to interpret this result as normal/abnormal. PLATELET COUNT (test code = 1015) 199 K/UL 130-400 ABSOLUTE NEUTROPHILS (test code = 1066) 2.32 K/UL 1.50-7.50 ABSOLUTE LYMPHOCYTES (test code = 1067) 1.33 K/UL 1.00-4.00 ABSOLUTE MONOCYTES (test code = 1068) 0.57 K/UL 0.20-1.00 ABSOLUTE EOSINOPHILS (test code = 1040) 0.09 K/UL 0.00-0.50 ABSOLUTE BASOPHILS (test code = 1069) 0.03 K/UL 0.00-0.20 ABS IMMATURE GRANULOCYTES (test code = 1020) 0.01 K/UL 0.00-0.10 ABS NUCLEATED RBCS (test code = 37867) 0.00 K/UL 0.00-0.11 COMPREHENSIVE METABOLIC [id number] 04:40:45* Test Item Value Reference Range Interpretation Comme nts GLUCOSE (test code = 2217) 80 MG/DL 70-99 BUN (test code = 2207) 9 MG/DL 6-20 CREATININE (test code = 2214) 0.76 MG/DL 0.80-1.40 L eGFR (2020 CKD-EPI) (test code = 02628) 107 ML/MIN/1.73 >60 CALC BUN/CREAT (test code = 2235) 12 RATIO 6-28 SODIUM (test code = 223) 137 MEQ/L 133-146 POTASSIUM (test code = 2228) 4.2 MEQ/L 3.5-5.4 CHLORIDE (test code = 2215) 97 MEQ/L 95-107 CARBON DIOXIDE (test code = 2206) 25 MEQ/L 19-31 CALCIUM (test code = 2209) 9.8 MG/DL 8.5-10.5 PROTEIN, TOTAL (test code = 2228) 7.4 G/DL 6.1-8.3 ALBUMIN (test code = 220) 4.7 G/DL 3.5-5.2 CALC GLOBULIN (test code = 2240) 2.7 G/DL 1.9-3.7 CALC A/G RATIO (test code = 223) 1.7 RATIO 1.0-2.6 BILIRUBIN, TOTAL (test code = 2206) 0.6 MG/DL See_Comment [Automated me ssage] The system which generated this result transmitted reference range: <=1.2. The reference range was not used to interpret this result as normal/abnormal. ALKALINE PHOSPHATASE (test code = 2203) 55 U/L 40-121 AST (test code = 2218) 138 U/L 9-50 H ALT (test code = 2219) 100 U/L 5-50 H LIPID [id number] 04:40:45* Test Item Value Reference Range Interpretation Comme nts CHOLESTEROL (test code = 2210) 241 MG/DL <200 H TRIGLYCERIDES (test code = 2232) 141 MG/DL <150 HDL CHOLESTEROL (test code = 2220) 65 MG/DL >39 CALC LDL CHOL (test code = 2237) 149 MG/DL <100 H NOTE: CALCULATED LDL IS BASED ON SUE-KU METHOD WHICHINCLUDES ADJUSTABLE TRIGLYCERIDE:VLDL CHOLESTEROL RATIO.THIS FACTOR VARIES BY MEASURED TRIGLYCERIDE AND NON-HDLCHOLESTEROL CONCENTRATIONS WITH INCREASED CALCULATED LDL SEENIN HIGHER TRIGLYCERIDE OR LOWER NON-HDL SPECIMENS. FOR MOREINFORMATION, SEE CLIENT ANNOUNCEMENT AT [email or web address] RISK RATIO LDL/HDL (test code = 2238) 2.29 RATIO <3.55 UNLESS OTHERW ISE INDICATED, ALL TESTING PERFORMED [facility] [address] [place] [address] DIECAST MACHINE OPERATOR: CARMELO ZARAGOZA M.D. CLIA NUMBER [id number] [facility] [place]. [id number]
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
[2023-12-15 13:00] LABS: Absolute Eosinophils 0.1 K/uL (0-0.5); Absolute Lymphocytes (CBC) 1.1 K/uL (0.7-4.9); Basophils % 0.7 % (0-1.3); Eosinophils % 2.5 % (0-4.4); Hematocrit 43.1 % (39.6-49.0); Hemoglobin 15.4 g/dL (13.6-17.9); Lymphocytes % 27.9 % (15.3-44.8); MCV 93.2 fL (80-100); MPV 6.9 fL (7.6-11.3); Platelets 154 thou/uL (152-406); Protime INR 1.08; RBC Red Blood Cell Count 4.63 M/uL (4.33-5.43)
[2023-12-15 13:14] LABS: Anion Gap 11.9 mEq/L (5.0-15.0); Potassium 3.9 mEq/L (3.5-5.1)
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
[2023-12-15 14:15] VITALS: BP 122/88; TEMP 98; O2SAT 100
[2023-12-15 15:43] LABS: Platelet Estimate ADEQ; White Blood Cell Scan OK (OK)
[2023-12-15 15:44] LABS: Blood Morphology Comment NOT SEEN (NOT SEEN)
== END ==
LOC: ER 10:55
DX: G44.319 Acute post-traumatic headache, not intractable (principal); S50.812A Abrasion of left forearm, initial encounter; V49.49XA Driver injured in collision with other motor vehicles in traffic accident, initial encounter; I10 Essential (primary) hypertension
CPT/HCPCS: 36415; 70450; 72125; 80048; 85025; 85610; 96372; 99284